=== PATIENT | female | born 1935 | race Caucasian/White ===

== ENCOUNTER 2017-10-30 14:36 | Emergency (ER) | payer OTHER ==
--- NOTE | 2017-10-30 15:28 | RAD REPORT ---
EXAM DESCRIPTION: Radha Single View10/30/2017 3:22 pm CLINICAL HISTORY: Cough COMPARISON: 2017 FINDINGS: The lungs appear clear of acute infiltrate. The heart is normal size IMPRESSION: No acute abnormalities displayed
--- NOTE | 2017-10-30 15:49 | EKG ---
Test Date: 2017-10-30 Test Time: 15:14:32 Medical Voucher Clerk: JAMES MEASUREMENT RESULTS: Intervals: Rate: 87 AL: 194 QRSD: 76 QT: 358 QTc: 430 [place]: P: -16 AL: 194 QRS: -17 T: 24 INTERPRETIVE STATEMENTS: Normal sinus rhythm Possible Anterior infarct, age undetermined Abnormal ECG Compared to ECG 09/12/2016 18:54:19 First degree AV block no longer present Myocardial infarct finding still present Electronically Signed On 10-30-17 15:48:37 CDT by Adi Josue
--- NOTE | 2017-10-30 15:50 | RAD REPORT ---
EXAM DESCRIPTION: CT - Head Brain Wo Cont - 10/30/2017 3:43 pm CLINICAL HISTORY: Headache COMPARISON: None. TECHNIQUE: Computed axial tomography of the head was obtained. IV contrast was not requested. All CT scans are performed using dose optimization technique as appropriate and may include automated exposure control or mA/KV adjustment according to patient size. FINDINGS: An intracranial bleed is not seen . The ventricles are normal in caliber. No extra-axial fluid collection is noted. Mild low-density areas within periventricular, deep and sub cortical white matter likely represent ischemic changes secondary to small vessel disease Fluid within the sinuses/ mastoids is not seen. IMPRESSION: No acute intracranial abnormality is seen. If patient's symptoms persist MRI of the bra in would be recommended.
[2017-10-30] MEDS ORDERED: NA CHLORIDE 0.9% 1,000 ML ONE (16:16)
[2017-10-30 16:56] LABS: Absolute Lymphocytes (CBC) 1.7 K/uL (0.7-4.9); Absolute Monocytes 1.4 K/uL (0.1-1.3); Absolute Neutrophil 6.4 K/uL (1.8-8.0); Basophils % 0.5 % (0-1.3); Hematocrit 41.9 % (36.0-45.0); Lymphocytes % 17.8 % (15.3-44.8); MCH 30.5 pg (27.0-35.0); MCV 91.1 fL (80-100); MPV 10.4 fL (7.6-11.3); Monocytes % 14.8 % (3.3-12.3)
[2017-10-30 17:04] LABS: Protime INR 1.18
[2017-10-30 17:12] LABS: Potassium 3.3 mEq/L (3.6-5.0)
[2017-10-30 17:18] LABS: Albumin 3.8 g/dL (3.2-5.5); Bilirubin Direct 0.2 mg/dL (0-0.2); Bilirubin Total 0.7 mg/dL (0.3-1.2); Protein, Total 6.8 g/dL (6.0-8.3)
[2017-10-30 17:22] LABS: CKMB Creatine Kinase MB 2.9 ng/ml (0.3-4.0)
[2017-10-30 17:28] LABS: Urine Blood TRACE (NEG); Urine Glucose NEGATIVE (NEG); Urine Protein 1+ (NEG); Urine Specific Gravity >1.030 (1.005-1.030); Urine pH 5.5 (5.0-7.0)
[2017-10-30 17:50] LABS: Thyroid Stimulating Hormone 1.21 uIU/mL (0.34-5.60)
--- NOTE | 2017-10-30 18:35 | EDPHYS ---
Physician Documentation [facility] Name: Josey Briscoe Age: 82 yrs Sex: Female : 1935 Arrival Date: 10/30/2017 Time: 14:41 Bed 30 Private MD: Mitesh Richard T ED Physician Db Llamas HPI: 10/30 15:17 This 82 yrs old Female presents to ER via Ambulatory with complaints of sailaja Fatigue. 15:17 weakness, not acting self. Onset: The symptoms/episode began/occurred 2 day(s) ago. sialaja Severity of symptoms: At their worst the symptoms were mild in the emergency department the symptoms are unchanged. The patient has not experienced similar symptoms in the past. Historical: - Allergies: 14:55 No Known Allergies; lk1 - PMHx: 14:55 Hyperlipidemia; Gout; CVA; lk1 - PSHx: 14:55 Hysterectomy; Tonsillectomy; right femur repaired; lk1 - Immunization history:: Adult Immunizations up to date. - Social history:: Smoking status: Patient/guardian denies using tobacco. - Family history:: pertinent for. ROS: 15:17 Constitutional: Negative for fever, chills, and weight loss, Eyes: Negative for injury, sailaja pain, redness, and discharge, ENT: Negative for injury, pain, and discharge, Neck: Negative for injury, pain, and swelling, Cardiovascular: Negative for chest pain, palpitations, and edema, Respiratory: Negative for shortness of breath, cough, wheezing, and pleuritic chest pain, Abdomen/GI: Negative for abdominal pain, nausea, vomiting, diarrhea, and constipation, Back: Negative for injury and pain, : Negative for injury, bleeding, discharge, and swelling, MS/Extremity: Negative for injury and deformity, Skin: Negative for injury, rash, and discoloration, Psych: Negative for depression, anxiety, suicide ideation, homicidal ideation, and hallucinations, Allergy/Immunology: Negative for hives, rash, and allergies, Endocrine: Negative for neck swelling, polydipsia, polyuria, polyphagia, and marked weight changes, Hematologic/Lymphatic: Negative for swollen nodes, abnormal bleeding, and unusual bruising. 15:17 Neuro: Positive for weakness. Exam: 15:17 Constitutional: This is a well developed, well nourished patient who is awake, alert, sailaaj and in no acute distress. Head/Face: Normocephalic, atraumatic. Eyes: Pupils equal round and reactive to light, extra-ocular motions intact. Lids and lashes normal. Conjunctiva and sclera are non-icteric and not injected. Cornea within normal limits. Periorbital areas with no swelling, redness, or edema. ENT: Nares patent. No nasal discharge, no septal abnormalities noted. Tympanic membranes are normal and external auditory canals are clear. Oropharynx with no redness, swelling, or masses, exudates, or evidence of obstruction, uvula midline. Mucous membranes moist. Neck: Trachea midline, no thyromegaly or masses palpated, and no cervical lymphadenopathy. Supple, full range of motion without nuchal rigidity, or vertebral point tenderness. No Meningismus. Chest/axilla: Normal chest wall appearance and motion. Nontender with no deformity. No lesions are appreciated. Cardiovascular: Regular rate and rhythm with a normal S1 and S2. No gallops, murmurs, or rubs. Normal PMI, no JVD. No pulse deficits. Respiratory: Lungs have equal breath sounds bilaterally, clear to auscultation and percussion. No rales, rhonchi or wheezes noted. No increased work of breathing, no retractions or nasal flaring. Abdomen/GI: Soft, non-tender, with normal bowel sounds. No distension or tympany. No guarding or rebound. No evidence of tenderness throughout. Back: No spinal tenderness. No costovertebral tenderness. Full range of motion. Female : Normal external genitalia. Skin: Warm, dry with normal turgor. Normal color with no rashes, no lesions, and no evidence of cellulitis. MS/ Extremity: Pulses equal, no cyanosis. Neurovascular intact. Full, normal range of motion. Neuro: Awake and alert, GCS 15, oriented to person, place, time, and situation. Cranial nerves II-XII grossly intact. Motor strength 5/5 in all extremities. Sensory grossly intact. Cerebellar exam normal. Normal gait. Psych: Awake, alert, with orientation to person, place and time. Behavior, mood, and affect are within normal limits. Vital Signs: 14:57 BP 114 / 69; Pulse 81; Resp 15; Temp 97.7(O); Pulse Ox 93% on R/A; Weight 63.5 kg (R); lk1 Height 5 ft. 6 in. (167.64 cm) (R); Pain 0/10; 16:37 BP 137 / 76; Pulse 76; Resp 18; Pulse Ox 97% on R/A; kb1 17:39 BP 133 / 74; Pulse 64; Resp 18; Pulse Ox 96% ; kb1 18:47 BP 129 / 82; Pulse 74; Resp 18; Pulse Ox 96% ; kb1 19:31 BP 141 / 78; Pulse 76; Resp 18; Pulse Ox 97% ; kb1 14:57 Body Mass Index 22.60 (63.50 kg, 167.64 cm) lk1 MDM: 15:07 Patient medically screened. [facility] 15:19 Data reviewed: vital signs, nurses notes, lab test result(s), EKG, radiologic studies, [facility] CT scan, plain films. 10/30 15:08 Order name: Basic Metabolic Panel; Complete Time: 18:27 [facility] 10/30 15:08 Order name: BNP; Complete Time: 18:27 [facility] 10/30 15:08 Order name: CBC with Diff; Complete Time: 18:27 [facility] 10/30 15:08 Order name: Ckmb; Complete Time: 18:27 [facility] 10/30 15:08 Order name: CPK; Complete Time: 18:27 [facility] 10/30 15:08 Order name: LFT's; Complete Time: 18:27 [facility] 10/30 15:08 Order name: Magnesium; Complete Time: 18:27 [facility] 10/30 15:08 Order name: PT-INR; Complete Time: 18:27 [facility] 10/30 15:08 Order name: Ptt, Activated; Complete Time: 18:27 [facility] 10/30 15:08 Order name: Troponin (emerg Dept Use Only); Complete Time: 18:27 [facility] 10/30 15:08 Order name: LFT's [facility] 10/30 15:08 Order name: Urine Culture [facility] 10/30 15:08 Order name: XRAY Chest (1 view); Complete Time: 16:25 [facility] 10/30 15:08 Order name: EKG; Complete Time: 15:09 [facility] 10/30 15:08 Order name: Cardiac monitoring; Complete Time: 15:55 [facility] 10/30 15:08 Order name: EKG - Nurse/Tech; Complete Time: 15:55 [facility] 10/30 15:08 Order name: IV Saline Lock; Complete Time: 16:47 [facility] 10/30 15:17 Order name: TSH [facility] 10/30 15:17 Order name: Lipase; Complete Time: 18:27 [facility] 10/30 15:17 Order name: Thyroid Stimulating Hormone; Complete Time: 18:27 [facility] 10/30 15:19 Order name: Blood Culture [facility] 10/30 15:21 Order name: CT Head Brain wo Cont; Complete Time: 16:25 [facility] 10/30 17:20 Order name: Urine Dipstick--Ancillary (enter results); Complete Time: 18:27 10/30 15:08 Order name: Labs collected and sent; Complete Time: 15:55 [facility] 10/30 15:08 Order name: O2 Per Protocol; Complete Time: 15:55 [facility] 10/30 15:08 Order name: O2 Sat Monitoring; Complete Time: 15:55 [facility] 10/30 15:08 Order name: Urine Dipstick-Ancillary (obtain specimen); Complete Time: 17:19 sailaja Administered Medications: 16:37 Drug: NS 0.9% 1000 ml Route: IV; Rate: 75 ml/hr; Site: left hand; kb1 18:30 Follow up: Rate change bolus kb1 19:33 Follow up: IV Status: Completed infusion kb1 18:48 Drug: Potassium Chloride 20 mEq Route: PO; kb1 19:32 Follow up: Response: No adverse reaction kb1 18:49 Drug: Rocephin - (cefTRIAXone) 1 grams Route: IVPB; Infused Over: 5 mins; Site: right kb1 antecubital; 19:32 Follow up: Response: No adverse reaction; IV Status: Completed infusion kb1 18:49 Drug: Cipro 250 mg Route: PO; kb1 19:31 Follow up: Response: No adverse reaction kb1 19:32 Not Given (Given from bag already being administered): NS 0.9% 500 ml IV at bolus once kb1 Disposition: 10/30/17 18:34 Discharged to Home. Impression: Weakness, Malaise and fatigue, Hypokalemia, Cystitis. - Condition is Stable. - Discharge Instructions: Potassium Content of Foods, Dysuria, Weakness, Fatigue, Weakness, Ullk-rm-Utca, Aspirin and Your Heart, Hypokalemia. - Prescriptions for Cipro 250 mg Oral Tablet - take 1 tablet by ORAL route every 12 hours; 14 tablet. - Medication Reconciliation Form, Thank You Letter, Antibiotic Education, Prescription Opioid Use form. - Follow up: Mitesh Richard MD; When: 2 - 3 days; Reason: Recheck today's complaints, Continuance of care, Re-evaluation by your physician. - Problem is new. - Symptoms have improved. Signatures: Dispatcher [employer] EDDb Campbell MD MD cha Kluge, Leah, RN RN lk1 Veronica Castillo RN RN kb1
--- NOTE | 2017-10-30 18:35 | ER ---
Nurse's Notes [facility] Name: Josey Briscoe Age: 82 yrs Sex: Female : 1935 Arrival Date: 10/30/2017 Time: 14:41 Bed 30 Private MD: Mitesh Richard T Diagnosis: Weakness;Malaise and fatigue;Hypokalemia;Cystitis Presentation: 10/30 14:53 Presenting complaint: Significant other states: "I have noticed from yesterday to today lk1 a change in her ability to move around. She slept until 10am and she is taking longer than usual to do things. She had a stroke 10 years ago, but she doesn't seem to be having stroke problems.". Transition of care: patient was not received from another setting of care. Onset of symptoms was October 30, 2017. Care prior to arrival: None. 14:53 Method Of Arrival: Ambulatory lk1 14:53 Acuity: EMILIE 3 lk1 Triage Assessment: 14:56 General: Appears in no apparent distress. Behavior is calm, cooperative, appropriate lk1 for age. Pain: Denies pain. Neuro: Level of Consciousness is awake, alert, obeys commands, Oriented to person, place, time, situation, Moves all extremities. Full function Gait is steady, Speech is normal, Facial symmetry appears normal. Historical: - Allergies: 14:55 No Known Allergies; lk1 - PMHx: 14:55 Hyperlipidemia; Gout; CVA; lk1 - PSHx: 14:55 Hysterectomy; Tonsillectomy; right femur repaired; lk1 - Immunization history:: Adult Immunizations up to date. - Social history:: Smoking status: Patient/guardian denies using tobacco. - Family history:: pertinent for. Screenin:10 Abuse screen: Denies threats or abuse. Nutritional screening: No deficits noted. kb1 Tuberculosis screening: No symptoms or risk factors identified. Fall Risk None identified. Assessment: 15:10 General: Appears in no apparent distress. Behavior is calm, cooperative. Pain: Denies kb1 pain. Neuro: Level of Consciousness is awake, alert, obeys commands, Oriented to person, place, time, situation, Tube Carrier are equal bilaterally Moves all extremities. Speech is normal, Facial symmetry appears normal, Intact. Cardiovascular: Patient's skin is warm and dry. Rhythm is sinus rhythm. Respiratory: Respiratory effort is even, unlabored, Respiratory pattern is regular, symmetrical. GI: No signs and/or symptoms were reported involving the gastrointestinal system. : No signs and/or symptoms were reported regarding the genitourinary system. 16:35 Reassessment: Patient appears in no apparent distress at this time. Patient and/or kb1 family updated on plan of care and expected duration. Pain level reassessed. Patient is alert, oriented x 3, equal unlabored respirations, skin warm/dry/pink. 17:39 Reassessment: Patient appears in no apparent distress at this time. Patient and/or kb1 family updated on plan of care and expected duration. Pain level reassessed. Patient is alert, oriented x 3, equal unlabored respirations, skin warm/dry/pink. resting with eyes closed upon nurses entrance into room. 18:46 Reassessment: Patient appears in no apparent distress at this time. Patient and/or kb1 family updated on plan of care and expected duration. Pain level reassessed. Patient is alert, oriented x 3, equal unlabored respirations, skin warm/dry/pink. 19:31 Reassessment: Patient appears in no apparent distress at this time. Patient and/or kb1 family updated on plan of care and expected duration. Pain level reassessed. Patient is alert, oriented x 3, equal unlabored respirations, skin warm/dry/pink. Vital Signs: 14:57 BP 114 / 69; Pulse 81; Resp 15; Temp 97.7(O); Pulse Ox 93% on R/A; Weight 63.5 kg (R); lk1 Height 5 ft. 6 in. (167.64 cm) (R); Pain 0/10; 16:37 BP 137 / 76; Pulse 76; Resp 18; Pulse Ox 97% on R/A; kb1 17:39 BP 133 / 74; Pulse 64; Resp 18; Pulse Ox 96% ; kb1 18:47 BP 129 / 82; Pulse 74; Resp 18; Pulse Ox 96% ; kb1 19:31 BP 141 / 78; Pulse 76; Resp 18; Pulse Ox 97% ; kb1 14:57 Body Mass Index 22.60 (63.50 kg, 167.64 cm) lk1 ED Course: 14:41 Patient arrived in ED. mr 14:41 Mitesh Richard MD is Private Physician. mr 14:54 Triage completed. lk1 14:58 Arm band placed on left wrist. lk1 15:00 Veronica Castillo, DONNA is Primary Nurse. kb1 15:07 Db Llamas MD is Attending Physician. sailaja 15:10 Patient has correct armband on for positive identification. Placed in gown. Bed in low kb1 position. Call light in reach. Side rails up X 1. 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 Pulse ox on. NIBP on. Warm blanket given. 15:10 No provider procedures requiring assistance completed. kb1 15:21 X-ray completed. Portable x-ray completed in exam room. Patient tolerated procedure ml well. 15:22 XRAY Chest (1 view) In Process Unspecified. EDMS 15:[address] nj 15:42 CT completed. Patient tolerated procedure well. Patient moved back from CT. nj 15:43 CT Head Brain wo Cont In Process Unspecified. EDMS 16:07 Missed attempt(s): 22 gauge in right forearm. Bleeding controlled, band aid applied, dh3 catheter tip intact. Missed attempt(s): 24 gauge in right hand. Bleeding controlled, band aid applied, catheter tip intact. 16:36 Inserted saline lock: 22 gauge in left hand, using aseptic technique. kb1 17:19 Urine collected: clean catch specimen, yvette colored. dh3 18:33 Mitesh Richard MD is Referral Physician. sailaja 19:34 IV discontinued, intact, bleeding controlled, No redness/swelling at site. Pressure kb1 dressing applied. Administered Medications: 16:37 Drug: NS 0.9% 1000 ml Route: IV; Rate: 75 ml/hr; Site: left hand; kb1 18:30 Follow up: Rate change bolus kb1 19:33 Follow up: IV Status: Completed infusion kb1 18:48 Drug: Potassium Chloride 20 mEq Route: PO; kb1 19:32 Follow up: Response: No adverse reaction kb1 18:49 Drug: Rocephin - (cefTRIAXone) 1 grams Route: IVPB; Infused Over: 5 mins; Site: right kb1 antecubital; 19:32 Follow up: Response: No adverse reaction; IV Status: Completed infusion kb1 18:49 Drug: Cipro 250 mg Route: PO; kb1 19:31 Follow up: Response: No adverse reaction kb1 19:32 Not Given (Given from bag already being administered): NS 0.9% 500 ml IV at bolus once kb1 Outcome: 18:34 Discharge ordered by . sailaja 19:34 Discharged to home ambulatory, with family. kb1 19:34 Condition: good 19:34 Discharge instructions given to patient, family, Instructed on discharge instructions, follow up and referral plans. medication usage, Demonstrated understanding of instructions, follow-up care, medications, Prescriptions given X 1. 19:35 Patient left the ED. kb1 Signatures: Dispatcher [employer] EDMS Db Llamas MD MD cha Rivera, Maria mr Neal, Tonja Mojica, RN RN lk1 Inder Alston Deanna 3 Veronica Castillo RN RN kb1
[2017-10-30] MEDS ORDERED: CEFTRIAXONE/SWI 1gm 1 GM/10 ML SYR ONE (18:55)
[2017-10-30] MEDS ORDERED: POTASSIUM CL SA 10 MEQ TAB PO ONE (18:55)
[2017-10-30] MEDS ORDERED: CIPROFLOXACIN HCL 500 MG TAB ONE (18:58)
[2017-10-30 19:40] VITALS: TEMP 97.7
[2017-10-30 19:44] VITALS: BP 141/78; O2SAT 97
== END 2017-10-30 19:35 | disposition home or self-care (01) ==
LOC: ER 14:36
DX: E87.6 Hypokalemia (principal); N30.90 Cystitis, unspecified without hematuria; R53.81 Other malaise; R53.83 Other fatigue; Z86.73 Personal history of transient ischemic attack (TIA), and cerebral infarction without residual deficits
CPT/HCPCS: 36415; 70450; 71045; 80048; 80076; 81003; 82550; 82553; 83690; 83735; 83880; 84443; 84484; 85025; 85610; 85730; 87040 ×2; 87077; 87086; 87088; 87186; 93005; 96361; 96365; 99285; J0696; J7030

== ENCOUNTER 2020-11-15 09:44 | Emergency (ER) | payer OTHER ==
--- OUTSIDE RECORDS SUMMARY | 2020-11-15 09:47 | XMS REPORT | Continuity of Care Document ---
:1935 Author Organization [facility] t Address [address] [place] [address] Care Team Providers Name Role Phone Chavez Santo MD Primary Care Physician [phone] Chavez Santo MD Attending Clinician Only, Test Attending Clinician Unavailable Doctor Unassigned, Name Attending Clinician Unavailable CHAVEZ SANTO Attending Clinician Unavailable Payers Payer Name Policy Type Policy Effective Date Expiration Date Sour ce Number AETNA - MEDICARE [id number] 2017 [facility] L ukes MGD CAREAETNA 00:00:00 - Medical MEDICARE HMO Center [id number] [id number] [id number], [place] [address] Contracted Problems Condition Condition Condition Status Onset Resolution Last Treating Co mments Source Name Details Category Date Date Treatment Clinician Date 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 Social History Social Habit Start Date Stop Date Quantity Comments Source Sex Assigned At [facility] Tobacco use and 2020-08-21 2020-08-[address] [facility] [address] Bethanie kes - exposure 00:00:00 00:00:00 Medical Center Alcohol intake 2020-08-21 2020-08-[address] [facility] Mckay es - 00:00:00 00:00:00 non-drinker of Medical Ce nter alcohol (finding) Smoking Status Start Date Stop Date Source Never smoker [facility] kes - edical Center Medications Ordered Filled Start Stop Current Ordering Indication Dosage Frequency Signature Comments Components Source Medication Medication Date Date Medication? Clinician (SIG) Name Name aspirin 325 Yes Memory loss 325mg QD Take [address] [facility] [address] MG EC 1-21 mg by [facility] - tablet 13:59: mouth Medical 56 daily. [place] cholecalcif Yes Vitamin D 1000U QD Take 1,[address] [facility] rosanne 1-21 deficiency Units by [facility] - (VITAMIN 13:59: mouth Medical D3) 1,000 56 daily. [place] unit tablet b complex Yes Vitamin B12 1{tbl} QD Take [address] [facility] vitamins (B 1-21 deficiency tablet by [employer] - COMPLEX-VIT 13:59: mouth Medic al VELARDE B12) 56 daily. [place] tablet allopurinol Yes 100mg QD Take [address] (ZYLOPRIM) 1-21 mg by [facility] - 100 MG 13:59: mouth Medical tablet 56 daily. [place] Namzaric Yes Memory loss 1{capsu QD Take [address] 28-10 mg 1-21 le} capsule by [facility] - CSpX 00:00: mouth Medical 00 daily. [place] simvastatin Yes Mixed 20mg QD Take [address] [facility] (ZOCOR) 20 1-21 hyperlipide tablet (20 [facility] - MG tablet 00:00: geno mg total) Med ical 00 by mouth [place] daily. NAMZARIC 2020- No Memory loss Take [address] [facility] 28-10 mg 5-28 -21 capsule by Luke s - CSpX 00:00: 00:00 mouth once Medica l 00 :00 daily [place] simvastatin 2018-07- No Mixed 20mg QD Take [address] (ZOCOR) 20 2-17 01-21 hyperlipide tablet (20 [facility] - MG tablet 00:00: 00:00 geno mg total) Me dical 00 :00 by mouth Center daily. NAMZARIC 2019- No Memory loss 1{capsu QD Take [address] [facility] 28-10 mg 6-11 05 le} capsule by Chris Yanez CSpX 00:00: 00:00 mouth Medical 00 :00 daily. Center Immunizations Ordered Immunization Filled Immunization Date Status Commen ts Source Name Name Influenza TIV (IM) 2019-05-27 [address] [facility] St kes - 00:00:00 Medical [place] Pneumococcal Conjugate 2018-08-[address] [facility] 13-Valent 00:00:00 Medic al Center SHINGLES VARICELLA 2018-07-29 Completed [facility] - (ZOSTAVAX) ZOSTER 00:00:00 [facility] Td 2016-12-27 Com[address] [facility] - 00:00:00 [facility] Pneumococcal 2016-06-28 Com[facility] Pol[facility]accharide 00:00:00 Medical Ce nter (Pneumovax) Vital Signs Vital Name Observation Time Observation Value Comments Source Systolic blood 2020-08-18 13:56:00 128 mm[Hg] [facility] Diastolic blood 2020-08-18 13:56:00 67 mm[Hg] [facility] Heart rate 2020-08-18 13:56:00 77 /min [facility] Body temperature 2020-08-18 13:56:00 36.5 Radha [facility] Body weight 2020-08-18 13:56:[address] [facility] BMI 2020-08-18 13:56:00 24.18 kg/m2 [facility] Oxygen saturation in 2020-08-18 13:56:00 97 /min [facility] Arterial blood by Medical Ce nter Pulse oximetry Respiratory rate 2020-01-19 11:12:00 14 /min [facility] Procedures Procedure Date / Time Performed Performing Clinician Sour e TSH/FREE T4 IF INDICATED 2020-01-19 12:32:00 Arcadio Bishop [facility] CBC W/PLT COUNT & AUTO 2020-01-19 12:31:00 Arcadio Bishop [facility] COMPREHENSIVE METABOLIC 2020-01-19 12:31:00 Arcadio Bishop [facility] PANEL [facility] LIPID PANEL 2020-01-19 12:31:00 Arcadio Bishop Davi [facility] St kes [facility] Plan of Care Planned Activity Planned Date Details Comments Source Future Scheduled 2026-12-27 DTAP/TDAP/TD VACCINES [facility] - Test 00:00:00 (2 - Td) [code = [facility] ter DTAP/TDAP/TD VACCINES (2 - Td)] Future Scheduled 2020-07-[address] [facility] - Test 00:00:00 (12+) [code = [facility] DEPRESSION SCREENING (12+)] Future Scheduled 2020-03-[address] [facility] - Test 00:00:00 (#1) [code = [facility] INFLUENZA VACCINE (#1)] Future Scheduled 2018-09-23 SHINGLES VACCINES ([address] [facility] - Test 00:00:00 of 3) [code = [facility] SHINGLES VACCINES (2 of 3)] Future Scheduled 2018-07-[address] [facility] - Test 00:00:00 WELLNESS (YEAR 2 or [facility] FIRST YEAR if no IPPE) [code = MEDICARE ANNUAL WELLNESS (YEAR 2 or FIRST YEAR if no IPPE)] Encounters Start End Encounter Admission Attending Care Care Encounter Source Date/Time Date/Time Type Type Clinicians Facility Department ID 2020-07-19 2020-07-19 Laboratory Only, Adc [facility] [id number] 15:05:07 15:20:07 Only Test [place] [id number] [place] [id number] [place] [id number] 2020-07-19 2020-07-19 Orders Doctor LUZ [id number] 00:00:00 00:00:00 Only Unassigned, PAIG[place] [id number] [place] [facility] [id number] Results Test Description Test Time Test Comments Results Result Comments Source TSH/Free T4 If Indicated 2020-01-19 17:46:00 Test Item Value Reference Range Interpretation Comme nts TSH (test code = 17299-4) 2.040 See_Comment [ Automated message] The system which ge nerated this result transmit pati reference range: 0.350 - 4.940 uIU/mL. The reference r nikky was not used to interpr et this result as tracy l/abnormal. FLO (test code = FLO) Pig Caster ID - BS Lab Interpretation (test Normal code = 62204-1) [facility] [id number] 17:46:00 Test Item Value Reference Range Interpretation Comments THYROID STIMULATING HORMONE 2.040 uIU/mL 0.350-4.940 (BEAKER) (test code = 772) Pig Caster ID - BSComprehensive metabolic [id number] 17:28:00 Test Item Value Reference Range Interpretation Comments Protein, Total (test 7.1 See_Comment [Autom ated code = 2885-2) message] The system which generated this result transmit pati reference range : 6.0 - 8.3 gm/dL . The reference range was not u sed to interpret th is result as normal/abnormal . Albumin (test code = 4.1 g/dL 3.5-5 24350-7) Alkaline Phosphatase 85 U/L 40-150 (test code = 6768-6) Total Bilirubin (test 0.4 mg/dL 0.2-1.2 code = 1975-2) Sodium (test code = 144 meq/L 639-267 9325-2) Potassium (test code 3.7 meq/L 3.5-5.1 = 2823-3) Chloride (test code = 111 meq/L 98-107 H 2075-0) CO2 (test code = 20 meq/L 22-29 L 8-9) BUN (test code = 14 mg/dL 7-21 3094-0) Creatinine (test code 0.81 mg/dL 0.57-1.25 = 2160-0) Glucose (test code = 65 mg/dL 70-105 L 2345-7) Calcium (test code = 9.0 mg/dL 8.4-10.2 64757-0) AST (test code = 17 U/L 5-34 1920-8) ALT (test code = 15 U/L 6-55 1742-6) EGFR (test code = 67 mL/min/1.73 sq m [place] [facility] [place] [address]-0) NOT ACCURATE CREATININE CLEARANCE IN PREDICTING GLOMERULAR FILTRATION RATE . ESTIMATED GFR I S NOT APPLICABLE FOR DIALYSIS PATIEN FLO (test code = FLO) Pig Caster ID - BS Lab Interpretation Abnormal (test code = 05698-0) [facility] [id number] 17:28:00 Test Item Value Reference Range Interpretation Comments Triglycerides (test 162 mg/dL code = 2571-8) Cholesterol (test code 167 mg/dL = 2093-3) HDL (test code = 44 mg/dL 2085-9) LDL Calculated (test 91 mg/dL code = 72745-1) FLO (test code = FLO) Triglyceride Reference Range: Low Risk <150 Borderline 150-199 High Risk 200-499 Very High Risk >=500 Cholesterol Reference Range: Low Risk <200 Borderline 200-239 High Risk >240 HDL Cholesterol Reference Range: Low Risk >=60 High Risk <40 LDL Cholesterol Reference Range: Optimal <100 Near Optimal 100-129 Borderline 130-159 High 160-189 Very High >=190 Pig Caster ID - BS [facility] [id number] 17:28:00 Test Item Value Reference Range Interpretation Comments TRIGLYCERIDES (BEAKER) (test code = 162 mg/dL 540) CHOLESTEROL (BEAKER) (test code = 167 mg/dL 631) HDL CHOLESTEROL (BEAKER) (test code 44 mg/dL = 976) LDL CHOLESTEROL CALCULATED (BEAKER) 91 mg/dL (test code = 633) Triglyceride Reference Range: Low Risk <150 Borderline 150-199 High Risk 200-499 Very High Risk >=500Cholesterol Reference Range: Low Risk <200 Borderline 200-239 High Risk >240HDL Cholesterol Reference Range: Low Risk >=60 High Risk <40LDL Cholesterol Reference Range: Optimal <100 Near Optimal 100-129 Borderline 130-159 High 160-189 Very High >=190 Pig Caster ID - BSCOMPREHENSIVE METABOLIC [id number] 17:28:00 Test Item Value Reference Range Interpretation Comments TOTAL PROTEIN 7.1 gm/dL 6.0-8.3 (BEAKER) (test code = 770) ALBUMIN (BEAKER) 4.1 g/dL 3.5-5.0 (test code = 1145) ALKALINE PHOSPHATASE 85 U/L 40-150 (BEAKER) (test code = 346) BILIRUBIN TOTAL 0.4 mg/dL 0.2-1.2 (BEAKER) (test code = 377) SODIUM (BEAKER) (test 144 meq/L 136-145 code = 381) POTASSIUM (BEAKER) 3.7 meq/L 3.5-5.1 (test code = 379) CHLORIDE (BEAKER) 111 meq/L 98-107 H (test code = 382) CO2 (BEAKER) (test 20 meq/L 22-29 L code = 355) BLOOD UREA NITROGEN 14 mg/dL 7-21 (BEAKER) (test code = 354) CREATININE (BEAKER) 0.81 mg/dL 0.57-1.25 (test code = 358) GLUCOSE RANDOM 65 mg/dL 70-105 L (BEAKER) (test code = 652) CALCIUM (BEAKER) 9.0 mg/dL 8.4-10.2 (test code = 697) AST (SGOT) (BEAKER) 17 U/L 5-34 (test code = 353) ALT (SGPT) (BEAKER) 15 U/L 6-55 (test code = 347) EGFR (BEAKER) (test 67 mL/min/1.73 ESTIM[facility] PATI GFR IS code = 1092) sq m NOT ACCURATE CREATININE CLEARANCE IN PREDICTING GLOMERULAR FILTRATION RATE . ESTIMATED GFR I S NOT APPLICABLE FOR DIALYSIS PATIEN TS. Pig Caster ID - BSCBC with platelet count + automated [id number] 16:47:00 Test Item Value Reference Range Interpretation Comments WBC (test code = 6690-2) 7.6 See_Comment [A utomated message] The system [facility] generated this result transmitted ref erence range: 3.5 - 10 .5 K/L. The refe rence range was not u sed to interpret this result as normal/abnor mal. RBC (test code = 789-8) 5.09 See_Comment [Au tomated message] The system [facility] generated this result transmitted ref erence range: 3.93 - 5 .22 M/L. The refe rence range was not u sed to interpret this result as normal/abnor mal. MCHC (test code = 786-4) 30.8 See_Comment L [A utomated message] The system [facility] generated this result transmitted ref erence range: 32.2 - 3 5.5 GM/DL. The refe rence range was not u sed to interpret this result as normal/abnor mal. Hematocrit (test code = 46.8 % 34.1-44.9 H 4544-3) MCV (test code = 787-2) 91.9 fL 79.4-94.8 MCH (test code = 785-6) 28.3 pg 25.6-32.2 RDW (test code = 788-0) 14.3 % 11.7-14.4 Platelets (test code = 204 See_Comment [Aut omated message] 777-3) The system [facility] generated this result transmitted ref erence range: 150 - 45 0 K/CU MM. The referen ce range was not u sed to interpret this result as normal/abnor mal. MPV (test code = 12.6 fL 9.4-12.3 H 43012-8) nRBC (test code = 413) 0 See_Comment [Aut omated message] The system [facility] generated this result transmitted ref erence range: 0 - 0 /1 00 WBC. The refere nce range was not u sed to interpret this result as normal/abnor mal. % Neutros (test code = 57 % 429) % Lymphs (test code = 32 % 430) % Monos (test code = 9 % 431) % Eos (test code = 432) 1 % % Baso (test code = 437) 1 % # Neutros (test code = 4.32 See_Comment [Aut omated message] 670) The system [facility] generated this result transmitted ref erence range: 1.56 - 6 .13 K/L. The refe rence range was not u sed to interpret this result as normal/abnor mal. # Lymphs (test code = 2.42 See_Comment [Auto mated message] 414) The system [facility] generated this result transmitted ref erence range: 1.18 - 3 .74 K/L. The refe rence range was not u sed to interpret this result as normal/abnor mal. # Monos (test code = 0.70 See_Comment H [Autom ated message] 415) The system [facility] generated this result transmitted ref erence range: 0.24 - 0 .36 K/L. The refe rence range was not u sed to interpret this result as normal/abnor mal. # Eos (test code = 416) 0.04 See_Comment [Au tomated message] The system [facility] generated this result transmitted ref erence range: 0.04 - 0 .36 K/L. The refe rence range was not u sed to interpret this result as normal/abnor mal. # Baso (test code = 417) 0.05 See_Comment [A utomated message] The system [facility] generated this result transmitted ref erence range: 0.01 - 0 .08 K/L. The refe rence range was not u sed to interpret this result as normal/abnor mal. Immature 0 % 0-1 Granulocytes-Relative (test code = 2801) Lab Interpretation (test Abnormal code = 42340-8) [facility] W/PLT COUNT & AUTO [id number] 16:47:00 Test Item Value Reference Range Interpretation Comments WHITE BLOOD CELL COUNT (BEAKER) 7.6 K/ L 3.5-10.5 (test code = 775) RED BLOOD CELL COUNT (BEAKER) 5.09 M/ L 3.93-5.22 (test code = 761) HEMOGLOBIN (BEAKER) (test code = 14.4 GM/DL 11.2-15.7 410) HEMATOCRIT (BEAKER) (test code = 46.8 % 34.1-44.9 H 411) MEAN CORPUSCULAR VOLUME (BEAKER) 91.9 fL 79.4-94.8 (test code = 753) MEAN CORPUSCULAR HEMOGLOBIN 28.3 pg 25.6-32.2 (BEAKER) (test code = 751) MEAN CORPUSCULAR HEMOGLOBIN CONC 30.8 GM/DL 32.2-35.5 L (BEAKER) (test code = 752) RED CELL DISTRIBUTION WIDTH 14.3 % 11.7-14.4 (BEAKER) (test code = 412) PLATELET COUNT (BEAKER) (test 204 K/CU MM 150-450 code = 756) MEAN PLATELET VOLUME (BEAKER) 12.6 fL 9.4-12.3 H (test code = 754) NUCLEATED RED BLOOD CELLS 0 /100 WBC 0-0 (BEAKER) (test code = 413) NEUTROPHILS RELATIVE PERCENT 57 % (BEAKER) (test code = 429) LYMPHOCYTES RELATIVE PERCENT 32 % (BEAKER) (test code = 430) MONOCYTES RELATIVE PERCENT 9 % (BEAKER) (test code = 431) EOSINOPHILS RELATIVE PERCENT 1 % (BEAKER) (test code = 432) BASOPHILS RELATIVE PERCENT 1 % (BEAKER) (test code = 437) NEUTROPHILS ABSOLUTE COUNT 4.32 K/ L 1.56-6.13 (BEAKER) (test code = 670) LYMPHOCYTES ABSOLUTE COUNT 2.42 K/ L 1.18-3.74 (BEAKER) (test code = 414) MONOCYTES ABSOLUTE COUNT (BEAKER) 0.70 K/ L 0.24-0.36 H (test code = 415) EOSINOPHILS ABSOLUTE COUNT 0.04 K/ L 0.04-0.36 (BEAKER) (test code = 416) BASOPHILS ABSOLUTE COUNT (BEAKER) 0.05 K/ L 0.01-0.08 (test code = 417) IMMATURE GRANULOCYTES-RELATIVE 0 % 0-1 PERCENT (BEAKER) (test code = 2801) URIC [id number] 14:41:00 Test Item Value Reference Range Interpretation Comments URIC ACID (BEAKER) (test code = 5.5 mg/dL 2.6-7.2 773) COMPREHENSIVE METABOLIC [id number] 14:41:00 Test Item Value Reference Range Interpretation Comments TOTAL PROTEIN 7.6 gm/dL 6.0-8.3 (BEAKER) (test code = 770) ALBUMIN (BEAKER) 4.3 g/dL 3.5-5.0 (test code = 1145) ALKALINE PHOSPHATASE 105 U/L 40-150 (BEAKER) (test code = 346) BILIRUBIN TOTAL 0.4 mg/dL 0.2-1.2 (BEAKER) (test code = 377) SODIUM (BEAKER) (test 140 meq/L 136-145 code = 381) POTASSIUM (BEAKER) 3.9 meq/L 3.5-5.1 (test code = 379) CHLORIDE (BEAKER) 107 meq/L 98-107 (test code = 382) CO2 (BEAKER) (test 24 meq/L 22-29 code = 355) BLOOD UREA NITROGEN 18 mg/dL 7-21 (BEAKER) (test code = 354) CREATININE (BEAKER) 0.78 mg/dL 0.57-1.25 (test code = 358) GLUCOSE RANDOM 81 mg/dL 70-105 (BEAKER) (test code = 652) CALCIUM (BEAKER) 9.5 mg/dL 8.4-10.2 (test code = 697) AST (SGOT) (BEAKER) 17 U/L 5-34 (test code = 353) ALT (SGPT) (BEAKER) 16 U/L 6-55 (test code = 347) EGFR (BEAKER) (test 70 mL/min/1.73 [facility] GFR IS code = 1092) sq m NOT ACCURATE CREATININE CLEARANCE IN PREDICTING GLOMERULAR FILTRATION RATE . ESTIMATED GFR I S NOT APPLICABLE FOR DIALYSIS PATIEN TS. [id number] 12:34:00 Test Item Value Reference Range Interpretation Comments THYROID STIMULATING HORMONE 1.38 uIU/mL 0.35-4.94 (BEAKER) (test code = 772) VITAMIN [id number] 12:34:00 Test Item Value Reference Range Interpretation Comments VITAMIN B12 (BEAKER) (test code = 1882 pg/mL 213-816 H 774) BASIC METABOLIC [id number] 12:04:00 Test Item Value Reference Range Interpretation Comments SODIUM (BEAKER) 144 meq/L 136-145 (test code = 381) POTASSIUM (BEAKER) 3.4 meq/L 3.5-5.1 L (test code = 379) CHLORIDE (BEAKER) 108 meq/L 98-107 H (test code = 382) CO2 (BEAKER) (test 26 meq/L 22-29 code = 355) BLOOD UREA NITROGEN 12 mg/dL 7-21 (BEAKER) (test code = 354) CREATININE (BEAKER) 0.73 mg/dL 0.57-1.25 (test code = 358) GLUCOSE RANDOM 100 mg/dL 70-105 (BEAKER) (test code = 652) CALCIUM (BEAKER) 9.3 mg/dL 8.4-10.2 (test code = 697) EGFR (BEAKER) (test 76 mL/min/1.73 [facility] GFR IS code = 1092) sq m NOT ACCURATE CREATININE CLEARANCE IN PREDICTING GLOMERULAR FILTRATION RATE . ESTIMATED GFR I S NOT APPLICABLE FOR DIALYSIS PATIEN TS. VITAMIN [id number] 14:07:00 Test Item Value Reference Range Interpretation Comments VITAMIN B12 (BEAKER) (test code = 1427 pg/mL 213-816 H 774) VITAMIN D, [id number] 14:07:00 Test Item Value Reference Range Interpretation Comments VITAMIN D 25-OH (BEAKER) (test 51.2 ng/mL 6.6-49.9 H code = 2764) Effective 05/08/2017: Reference Range ChangeNew: 6.6-49.9 ng/mL Previous: 13.0-47.8 ng/mLRecommended Vitamin D Target Range: 30.0-40.0 ng/mLCOMPREHENSIVE METABOLIC [id number] 13:40:00 Test Item Value Reference Range Interpretation Comments TOTAL PROTEIN 7.5 gm/dL 6.0-8.3 (BEAKER) (test code = 770) ALBUMIN (BEAKER) 4.1 g/dL 3.5-5.0 (test code = 1145) ALKALINE PHOSPHATASE 95 U/L 40-150 (BEAKER) (test code = 346) BILIRUBIN TOTAL 0.5 mg/dL 0.2-1.2 (BEAKER) (test code = 377) SODIUM (BEAKER) (test 140 meq/L 136-145 code = 381) POTASSIUM (BEAKER) 3.9 meq/L 3.5-5.1 (test code = 379) CHLORIDE (BEAKER) 106 meq/L 98-107 (test code = 382) CO2 (BEAKER) (test 22 meq/L 22-29 code = 355) BLOOD UREA NITROGEN 13 mg/dL 7-21 (BEAKER) (test code = 354) CREATININE (BEAKER) 0.80 mg/dL 0.57-1.25 (test code = 358) GLUCOSE RANDOM 88 mg/dL 70-105 (BEAKER) (test code = 652) CALCIUM (BEAKER) 9.4 mg/dL 8.4-10.2 (test code = 697) AST (SGOT) (BEAKER) 13 U/L 5-34 (test code = 353) ALT (SGPT) (BEAKER) 10 U/L 6-55 (test code = 347) EGFR (BEAKER) (test 69 mL/min/1.73 [facility] PAT[facility] GFR IS code = 1092) sq m NOT ACCURATE CREATININE CLEARANCE IN PREDICTING GLOMERULAR FILTRATION RATE . ESTIMATED GFR I S NOT APPLICABLE FOR DIALYSIS PATIEN TS. CBC W/PLT COUNT & AUTO [id number] 13:02:00 Test Item Value Reference Range Interpretation Comments WHITE BLOOD CELL COUNT (BEAKER) 10.3 K/ L 3.5-10.5 (test code = 775) RED BLOOD CELL COUNT (BEAKER) 4.67 M/ L 3.93-5.22 (test code = 761) HEMOGLOBIN (BEAKER) (test code = 14.2 GM/DL 11.2-15.7 410) HEMATOCRIT (BEAKER) (test code = 43.2 % 34.1-44.9 411) MEAN CORPUSCULAR VOLUME (BEAKER) 92.5 fL 79.4-94.8 (test code = 753) MEAN CORPUSCULAR HEMOGLOBIN 30.4 pg 25.6-32.2 (BEAKER) (test code = 751) MEAN CORPUSCULAR HEMOGLOBIN CONC 32.9 GM/DL 32.2-35.5 (BEAKER) (test code = 752) RED CELL DISTRIBUTION WIDTH 13.2 % 11.7-14.4 (BEAKER) (test code = 412) PLATELET COUNT (BEAKER) (test 244 K/CU MM 150-450 code = 756) MEAN PLATELET VOLUME (BEAKER) 11.3 fL 9.4-12.3 (test code = 754) NUCLEATED RED BLOOD CELLS 0 /100 WBC 0-0 (BEAKER) (test code = 413) NEUTROPHILS RELATIVE PERCENT 64 % (BEAKER) (test code = 429) LYMPHOCYTES RELATIVE PERCENT 27 % (BEAKER) (test code = 430) MONOCYTES RELATIVE PERCENT 7 % (BEAKER) (test code = 431) EOSINOPHILS RELATIVE PERCENT 1 % (BEAKER) (test code = 432) BASOPHILS RELATIVE PERCENT 1 % (BEAKER) (test code = 437) NEUTROPHILS ABSOLUTE COUNT 6.58 K/ L 1.56-6.13 H (BEAKER) (test code = 670) LYMPHOCYTES ABSOLUTE COUNT 2.77 K/ L 1.18-3.74 (BEAKER) (test code = 414) MONOCYTES ABSOLUTE COUNT (BEAKER) 0.73 K/ L 0.24-0.36 H (test code = 415) EOSINOPHILS ABSOLUTE COUNT 0.13 K/ L 0.04-0.36 (BEAKER) (test code = 416) BASOPHILS ABSOLUTE COUNT (BEAKER) 0.08 K/ L 0.01-0.08 (test code = 417) IMMATURE GRANULOCYTES-RELATIVE 0 % 0-1 PERCENT (BEAKER) (test code = 2801)
--- NOTE | 2020-11-15 12:24 | RAD REPORT ---
EXAM DESCRIPTION: US - Extremity Venous Uni Ltd - 11/15/2020 11:38 am CLINICAL HISTORY: PAIN COMPARISON: None. TECHNIQUE: Real-time sonographic evaluation of the left lower extremity deep venous system was perfo rmed. FINDINGS: Normal compressibility, flow augmentation, phasic flow and spontaneous flow are identified in the left lower extremity common femoral, superficial femoral, popliteal and posterior tibial vein s. No intraluminal filling defects seen. IMPRESSION: No DVT in the left lower extremity.
[2020-11-15 12:41] LABS: Absolute Lymphocytes (CBC) 1.9 K/uL (0.7-4.9); Basophils % 1.1 % (0-1.3); Hematocrit 43.9 % (36.0-45.0); Lymphocytes % 19.1 % (15.3-44.8); MPV 10.8 fL (7.6-11.3); RBC Red Blood Cell Count 4.94 M/uL (3.86-4.86)
--- NOTE | 2020-11-15 12:46 | RAD REPORT ---
EXAM DESCRIPTION: RAD - Ankle Left 3 View - 11/15/2020 12:05 pm CLINICAL HISTORY: left ankle pain COMPARISON: No comparisons FINDINGS: No fracture, dislocation or periosteal reaction. Bones are osteopenic. A small 4 millimete r area of decreased density with peripheral sclerotic rim is seen in the tibial plafond. This is prob ably an area of subcortical degenerative cystic change. No focal abnormality in the dome of the talus . Small plantar spur is present. Medial soft tissue swelling is present. IMPRESSION: Osteopenic and degenerative changes are present as detailed. Medial soft tissue swelling is present without fracture identifiable.
[2020-11-15 12:52] LABS: Potassium 3.7 mmol/L (3.5-5.1); Uric Acid 7.6 mg/dL (2.6-6.0)
--- NOTE | 2020-11-15 13:40 | EDPHYS ---
Physician Documentation [facility] Name: Josey Briscoe Age: 85 yrs Sex: Female : 1935 Arrival Date: 11/15/2020 Time: 09:49 Bed 7 Private MD: ED Physician Jon Ortiz HPI: 11/15 10:58 This 85 yrs old Female presents to ER via Unassigned with complaints of Ankle jmm Injury. 10:58 The patient presents with pain. Onset: The symptoms/episode began/occurred this jmm morning. Associated signs and symptoms: Pertinent negatives: calf tenderness, fever, swelling. Modifying factors: The symptoms are alleviated by elevation of extremity, the symptoms are aggravated by weight bearing. This is an 85 year old female with a history of gout that presents to the ED with complaints of left ankle pain with weight bearing. Denies trauma, denies fever. States a remote history of gout. . Historical: - Allergies: 11:00 No Known Allergies; ss - PMHx: 11:00 CVA; Gout; Hyperlipidemia; ss - PSHx: 11:00 Hysterectomy; Tonsillectomy; right femur repaired; ss - Immunization history:: Adult Immunizations. - Social history:: Smoking status: Patient denies any tobacco usage or history of. ROS: 10:58 Constitutional: Negative for fever, chills, and weight loss, Cardiovascular: Negative jmm for chest pain, palpitations, and edema, Respiratory: Negative for shortness of breath, cough, wheezing, and pleuritic chest pain. 10:58 MS/extremity: Positive for pain. 10:58 All other systems are negative. Exam: 10:58 Constitutional: This is a well developed, well nourished patient who is awake, alert, jmm and in no acute distress. Head/Face: atraumatic. Eyes: EOMI, no conjunctival erythema appreciated ENT: Moist Mucus Membranes Neck: Trachea midline, Supple Chest/axilla: Normal chest wall appearance and motion. Cardiovascular: Regular rate and rhythm. No edema appreciated Respiratory: Normal respirations, no respiratory distress appreciated Abdomen/GI: Non distended, soft Back: Normal ROM Skin: General appearance color normal 10:58 Musculoskeletal/extremity: left ankle ttp, no swelling appreciated, compartments are soft, NVI. 10:58 Skin: Appearance: Color: normal in color. 10:58 Neuro: Orientation: is normal, Mentation: is normal, Memory: is normal. 10:58 Psych: Behavior/mood is pleasant, cooperative. Vital Signs: 10:58 BP 107 / 76; Pulse 74; Resp 17; Temp 97.0(TE); Pulse Ox 99% on R/A; Weight 65.77 kg; ss Height 5 ft. 6 in. (167.64 cm); 11:56 BP 136 / 78; Pulse 60; Pulse Ox 99% on R/A; ap3 10:58 Body Mass Index 23.40 (65.77 kg, 167.64 cm) ss MDM: 10:58 Patient medically screened. [facility] 13:35 Data reviewed: vital signs, nurses notes. Counseling: I had a detailed discussion with [facility] the patient and/or guardian regarding: the historical points, exam findings, and any diagnostic results supporting the discharge/admit diagnosis, lab results, radiology results, the need for outpatient follow up, to return to the emergency department if symptoms worsen or persist or if there are any questions or concerns that arise at home. ED course: Patient is alert and non toxic in appearance in the ED. No signs of sepsis. Patient advised to follow up with pcp. Otherwise given strict return precautions. patient understood and agrees with the plan of care. . 11/15 10:56 Order name: CBC with Diff; Complete Time: 12:50 [facility] 11/15 10:56 Order name: BMP; Complete Time: 12:55 [facility] 11/15 10:56 Order name: US Extremity Venous Unilateral Ltd; Complete Time: 12:25 [facility] 11/15 10:56 Order name: Ankle Left 3 View XRAY; Complete Time: 12:50 [facility] 11/15 10:56 Order name: Saline Lock; Complete Time: 12:26 [facility] 11/15 10:56 Order name: Uric Acid; Complete Time: 12:55 [facility] Administered Medications: No medications were administered Disposition: 17:21 Co-signature as Attending Physician, Jon Ortiz MD. rn Disposition: 11/15/20 13:39 Discharged to Home. Impression: Gout. - Condition is Stable. - Discharge Instructions: Gout. - Prescriptions for Pepcid 20 mg Oral Tablet - take 1 tablet by ORAL route every 12 hours for 10 days; 20 tablet. Medrol (Jose) 4 mg Oral Tablets, Dose Pack - take 1 tablet by ORAL route as directed - follow package instructions; 1 packet. - Medication Reconciliation Form, Thank You Letter, Antibiotic Education, Prescription Opioid Use form. - Follow up: Private Physician; When: As needed; Reason: Recheck today's complaints, Continuance of care, Re-evaluation by your physician. Signatures: Dispatcher [employer] EDVirgil Denny PA PA jmm Nieto, Roman, MD MD rn Smirch, Shelby, RN RN ss Corrections: (The following items were deleted from the chart) 14:17 13:39 11/15/2020 13:39 Discharged to Home. Impression: Gout. Condition is Stable. Forms ss are Medication Reconciliation Form, Thank You Letter, Antibiotic Education, Prescription Opioid Use. Follow up: Private Physician; When: As needed; Reason: Recheck today's complaints, Continuance of care, Re-evaluation by your physician. barrie
--- NOTE | 2020-11-15 13:40 | ER ---
Nurse's Notes [facility] Name: Josey Briscoe Age: 85 yrs Sex: Female : 1935 Arrival Date: 11/15/2020 Time: 09:49 Bed 7 Private MD: Diagnosis: Gout Presentation: 11/15 10:58 Chief complaint: Spouse and/or significant other states: L medial ankle pain that began ss this morning after getting out of bed. No injury. Coronavirus screen: Client denies travel out of the [place] in the last 14 days. Ebola Screen: Patient denies exposure to infectious person. Patient denies travel to an Ebola-affected area in the 21 days before illness onset. Initial Sepsis Screen: Does the patient meet any 2 criteria? No. Patient's initial sepsis screen is negative. Does the patient have a suspected source of infection? No. Patient's initial sepsis screen is negative. Risk Assessment: Do you want to hurt yourself or someone else? Patient reports no desire to harm self or others. Onset of symptoms was November 15, 2020. 10:58 Method Of Arrival: Wheelchair ss 10:58 Acuity: EMILIE 4 ss Historical: - Allergies: 11:00 No Known Allergies; ss - PMHx: 11:00 CVA; Gout; Hyperlipidemia; ss - PSHx: 11:00 Hysterectomy; Tonsillectomy; right femur repaired; ss - Immunization history:: Adult Immunizations. - Social history:: Smoking status: Patient denies any tobacco usage or history of. Screenin:55 Abuse screen: Denies threats or abuse. Nutritional screening: No deficits noted. ap3 Tuberculosis screening: No symptoms or risk factors identified. Fall Risk No fall in past 12 months (0 pts). No secondary diagnosis (0 pts). IV access (20 points). Ambulatory Aid- None/Bed Rest/Nurse Assist (0 pts). Gait- Impaired (20 pts.). Mental Status- Oriented to own ability (0 pts). Assessment: 11:52 General: Appears in no apparent distress. uncomfortable, Behavior is calm, cooperative, ap3 appropriate for age. Pain: Complains of pain in left medial ankle Pain began This morning. Neuro: Level of Consciousness is awake, alert, obeys commands, Oriented to person, place, time, situation, Gait is unsteady. Cardiovascular: Capillary refill < 3 seconds Patient's skin is warm and dry. Respiratory: Airway is patent Respiratory effort is even, unlabored, Respiratory pattern is regular, symmetrical. Musculoskeletal: Reports pain in left medial ankle since this morning. 14:17 Reassessment: Patient appears in no apparent distress at this time. Patient and/or ss family updated on plan of care and expected duration. Pain level reassessed. Patient is alert, oriented x 3, equal unlabored respirations, skin warm/dry/pink. Vital Signs: 10:58 BP 107 / 76; Pulse 74; Resp 17; Temp 97.0(TE); Pulse Ox 99% on R/A; Weight 65.77 kg; ss Height 5 ft. 6 in. (167.64 cm); 11:56 BP 136 / 78; Pulse 60; Pulse Ox 99% on R/A; ap3 10:58 Body Mass Index 23.40 (65.77 kg, 167.64 cm) ED Course: 09:49 Patient arrived in ED. mr 10:54 Virgil Hilario PA is PHCP. jmm 10:54 Jon Ortiz MD is Attending Physician. jmm 11:00 Triage completed. ss 11:00 Arm band placed on right wrist. ss 11:38 US Extremity Venous Unilateral Ltd In Process Unspecified. EDMS 11:52 Kim Guzman, DONNA is Primary Nurse. ap3 11:56 Patient has correct armband on for positive identification. Bed in low position. Call ap3 light in reach. Side rails up X 1. Adult w/ patient. Pulse ox on. NIBP on. 12:05 Ankle Left 3 View XRAY In Process Unspecified. EDMS 12:24 Inserted saline lock: 22 gauge in right antecubital area, using aseptic technique. sv ,using aseptic technique. diffusics Blood collected. Flushed right antecubital with 2 ml normal saline. 12:26 CBC with Diff Sent. ap3 14:17 No provider procedures requiring assistance completed. IV discontinued, intact, ss bleeding controlled, No redness/swelling at site. Pressure dressing applied. Administered Medications: No medications were administered Outcome: 13:39 Discharge ordered by . [facility] 14:17 Discharged to home ambulatory. 14:17 Condition: good 14:17 Discharge instructions given to patient, Instructed on discharge instructions, follow up and referral plans. medication usage, Demonstrated understanding of instructions, follow-up care, medications, Prescriptions given X 2. 14:17 Patient left the ED. ss Signatures: Dispatcher [employer] Qian Hameed RN RN sv Mickail, Joel, PA PA jmm Rivera, Mary mr Viviana Linda RN RN ss Kim Guzman RN RN ap3
[2020-11-15 14:23] VITALS: TEMP 97; O2SAT 99
[2020-11-15 14:24] VITALS: BP 136/78
== END 2020-11-15 14:17 | disposition home or self-care (01) ==
LOC: ER 09:44
DX: M10.9 Gout, unspecified (principal)
CPT/HCPCS: 36415; 80048; 84550; 85025; 93971; 99284

== ENCOUNTER 2022-12-26 08:54 | Inpatient (IN) | payer OTHER ==
--- OUTSIDE RECORDS SUMMARY | 2022-12-26 09:20 | XMS REPORT | Continuity of Care Document ---
:1935 Author Organization [facility] t Address [address] [facility]. [address] [place] [address] Care Team Providers Name Role Phone STEFANIA SANTO Primary Care Physician Unavailable Stefania Santo MD Attending Clinician Stefania Santo MD Attending Clinician STEFANIA SANTO Attending Clinician Unavailable Opal Peraza LCSW Attending Clinician Only, Adc Test Attending Clinician Unavailable Poornima Otero MD Attending Clinician POORNIMA OTERO Attending Clinician Unavailable Doctor Unassigned, [place] Attending Clinician Unavailable Payers Payer Name Policy Type Policy Number Effective Date Expiration Date S ource Problems Condition Condition Condition Status Onset Resolution Last Treating Co mments Source Name Details Category Date Date Treatment Clinician Date 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 Vitamin D Vitamin D Disease Active [facility] deficiency deficiency 8-08 [facility] 00:[facility]: Medical 00 Center Vitamin Vitamin Disease Active [facility] B12 B12 [facility] deficiency deficiency 00:00: Me dical 00 Center 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 8-08 Bethanie kes emia emia 00:00: Medical 00 Center Right-side Right-side Disease Active [facility] low back d low back 7 [facility] pain pain 00:00: of without without 00 Medicin sciatica sciatica e 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[facility] change change 3-09 [place] 00:00: of 00 Medicin e Vitamin D Vitamin D Disease Active [place] [facility] deficiency deficiency 10-04 Co [facility]lege 00:00: of 00 Medicin e Hyperlipid Hyperlipid Disease Active [facility] emia emia 10-04 [place] 00:00: of 00 Medicin e Allergies, Adverse Reactions, Alerts Allergy Allergy Status Severity Reaction(s) Onset Inactive Treating Comm ents Source Name Type Date Date Clinician NO KNOWN Drug Active [facility] NO KNOWN Allergy Active [facility] Social History Social Habit Start Date Stop Date Quantity Comments Source Exposure to Not sure [facility]-CoV-2 [facility] (event) Branch Alcohol intake 2021-02-13 2021-02-13 Current [facility] 00:00:00 00:00:00 non-drinker of Medical nter alcohol (finding) Tobacco use and 2018-02-06 2018-02-06 Smokeless tobacco [facility] exposure 00:00:00 00:00:00 non-user Medical Center Sex Assigned At [birth year] [facility] sudhirs 00:00:00 00:00:00 Medical Center Smoking Status Start Date Stop Date Source Unknown if ever smoked [facility] Never smoked tobacco [facility] of Medicine Medications Ordered Filled Start Stop Current Ordering Indication Dosage Frequency Signature Comments Components Source Medication Medication Date Date Medication? Clinician (SIG) Name Name simvastatin Yes [id number] 20mg Take 20 mg [facility] (ZOCOR) 20 1-23 by mouth Colle [facility] MG tablet 10:30: every of evening. Medicin e allopurinol Yes 100mg Take 100 [facility] (ZYLOPRIM) 1-23 mg by [place] 100 MG 10:30: mouth. of tablet Medicin e aspirin 325 Yes 325mg Take 325 [facility] MG TBEC 1-23 mg by College 10:30: mouth. of 01 Medicin e B Complex Yes 1{tbl} Take 1 [facility] 1-23 Tablet by [facility] (B-COMPLEX/ 10:30: mouth of B-12) TABS 01 daily. Medicin e simvastatin Yes [id number] 20mg Take 20 mg [facility] (ZOCOR) 20 7-19 by mouth Colle ge MG tablet 10:58: every of 28 evening. Medicin e Aspirin 324 0 Yes [id number] 325{tbl Take 325 [facility] MG TBEF 7-19 } tablets by Colleg e 10:58: mouth of 28 daily. Medicin e allopurinol Yes 100mg Take 100 [facility] (ZYLOPRIM) 7-19 mg by [place] 100 MG 10:58: mouth. of tablet 28 Medicin e aspirin 325 0 Yes 325mg Take 325 [facility] TBEC 7-19 mg by [place] 10:58: mouth. of 28 Medicin e B Complex Yes 1{tbl} Take 1 [facility] 7-19 Tablet by [facility] (B-COMPLEX/ 10:58: mouth of B-12) TABS 28 daily. Medicin e simvastatin Yes [id number] 20mg Take 20 mg [facility] (ZOCOR) 20 7-19 by mouth Colle ge MG tablet 10:58: every of 28 evening. Medicin e Aspirin 324 0 Yes [id number] 325{tbl Take 325 [facility] MG TBEF 7-19 } [facility] of 28 daily. Medicin e allopurinol Yes 100mg Take 100 [facility] (ZYLOPRIM) 7-19 mg by [place] 100 MG 10:58: mouth. of tablet 28 Medicin e aspirin 325 0 Yes 325mg Take 325 [facility] MG TBEC 7-19 mg by [place] 10:58: mouth. of 28 Medicin e B Complex Yes 1{tbl} Take 1 [facility] 7-19 Tablet by [facility] (B-COMPLEX/ 10:58: mouth of B-12) TABS 28 daily. Medicin e simvastatin 0 Yes [id number] 20mg Take 20 mg [facility] (ZOCOR) 20 1-18 by mouth Colle ge MG tablet 11:02: every of 14 evening. Medicin e Aspirin 324 2021-0 Yes [id number] 325{tbl Take 325 [facility] MG TBEF 1-18 } [facility] mouth of 14 daily. Medicin e Memantine 2021-0 Yes [id number] 1{tbl} Take 1 [facility] HCl-Donepez 1-18 Tablet by Col lege il HCl 00:00: mouth of 28-10 MG 00 daily. Medicin CP24 e Memantine 2021-0 Yes [id number] 1{tbl} Take 1 [facility] HCl-Donepez 1-18 Tablet by Col lege il HCl 00:00: mouth of 28-10 MG 00 daily. Medicin CP24 e Memantine 2021-0 Yes [id number] 1{tbl} Take 1 [facility] HCl-Donepez 1-18 Tablet by Col lege il HCl 00:00: mouth of 28-10 MG 00 daily. Medicin CP24 e Memantine 2021-0 Yes [id number] 1{tbl} Take 1 [facility] HCl-Donepez 1-18 Tablet by Col lege il HCl 00:00: mouth of 28-10 MG 00 daily. Medicin CP24 e aspirin 325 Yes Memory loss 325mg QD Take [address] [facility] [address] MG EC 7-19 mg by [facility] tablet 10:55: mouth Medical 34 daily. [place] cholecalcif Yes Vitamin D 1000U QD Take 1,[address] [facility] [address] [facility]sanne 7-19 deficiency Units by [facility] (VITAMIN 10:55: mouth Medical D3) 1,000 34 daily. [place] unit tablet b complex Yes Vitamin B12 1{tbl} QD Take [address] [facility] vitamins (B 7-19 deficiency tablet by [facility] COMPLEX-VIT 10:55: mouth Medic al VELARDE B12) 34 daily. [place] tablet allopurinol Yes 100mg QD Take [address] (ZYLOPRIM) 7-19 mg by [facility] 100 MG 10:55: mouth Medical tablet 34 daily. [place] aspirin 325 Yes Memory loss 325mg QD Take [address] MG EC 7-19 mg by [facility] tablet 10:55: mouth Medical 34 daily. [place] cholecalcif Yes Vitamin D 1000U QD Take 1,[address] [facility] 7-19 deficiency Units by [facility] (VITAMIN 10:55: mouth Medical D3) 1,000 34 daily. [place] unit tablet b complex Yes Vitamin B12 1{tbl} QD Take [address] [facility] vitamins (B 7-19 deficiency tablet by [facility] COMPLEX-VIT 10:55: mouth Medic al VELARDE B12) 34 daily. [place] tablet allopurinol Yes 100mg QD Take [address] (ZYLOPRIM) 7-19 mg by [facility] 100 MG 10:55: mouth Medical tablet 34 daily. [place] aspirin 325 Yes Memory loss 325mg QD Take [address] MG EC 7-19 mg by [facility] tablet 10:55: mouth Medical 34 daily. [place] cholecalcif Yes Vitamin D 1000U QD Take 1,[address] [place]anne 7-19 deficiency Units by [place] (VITAMIN 10:55: mouth Medical D3) 1,000 34 daily. [place] unit tablet b complex Yes Vitamin B12 1{tbl} QD Take [address] [facility] vitamins (B 7-19 deficiency tablet by [facility] COMPLEX-VIT 10:55: mouth Medic al VELARDE B12) 34 daily. [place] tablet allopurinol Yes 100mg QD Take [address] (ZYLOPRIM) 7-19 mg by [facility] 100 MG 10:55: mouth Medical tablet 34 daily. [place] Namzaric Yes Memory loss 1{capsu QD Take [address] 28-10 mg 7-19 le} capsule by [facility] CSpX 00:00: mouth Medical 00 daily. [place] simvastatin Yes Mixed 20mg QD Take [address] [facility] [facility] (ZOCOR) 20 7-19 hyperlipide tablet (20 [facility] MG tablet 00:00: geno mg total) Med ical 00 by mouth Center daily. Namzaric Yes Memory loss 1{capsu QD Take [address] [facility] 28-10 mg 7-19 le} capsule by [facility] CSpX 00:00: mouth Medical 00 daily. [place] simvastatin Yes Mixed 20mg QD Take [address] (ZOCOR) 20 7-19 hyperlipide tablet (20 [facility] MG tablet 00:00: geno mg total) Med ical 00 by mouth Center daily. Namzaric Yes Memory loss 1{capsu QD Take [address] [facility] 28-10 mg 7-19 le} capsule by [facility] CSpX 00:00: mouth Medical 00 daily. [place] simvastatin Yes Mixed 20mg QD Take [address] (ZOCOR) 20 7-19 hyperlipide tablet (20 [facility] MG tablet 00:00: geno mg total) Med ical 00 by mouth Center daily. Memantine 2017-2021- No 1{tbl} Take 1 Tab [facility] HCl-Donepez 6-04 -18 by mouth Col [facility]ge il HCl 00:00: 00:00 daily. of 28-10 MG 00 :00 Medicin CP24 e cyanocobala 2016-07 Yes 1000ug Take 1 Tab [facility] min 1000 2-06 by [facility] MCG tablet 00:00: daily. of 00 Medicin e Cholecalcif 2016-07 Yes 1{tbl} Take 1 Tab [facility] rosanne 2-06 by [facility] (VITAMIN D) 00:00: daily. of 1000 UNITS 00 Medicin TABS e cyanocobala 2016-07 Yes 1000ug Take 1 Tab [facility] min 1000 2-06 by [facility] MCG tablet 00:00: daily. of 00 Medicin e Cholecalcif 2016-07 Yes 1{tbl} Take 1 Tab [facility] rosanne 2-06 by [facility] (VITAMIN D) 00:00: daily. of 1000 UNITS 00 Medicin TABS e cyanocobala 2016-07 Yes 1000ug Take 1 Tab [facility] min 1000 2-06 by [facility] MCG tablet 00:00: daily. of 00 Medicin e Cholecalcif 2016-07 Yes 1{tbl} Take 1 Tab [facility] rosanne 2-06 by [facility] (VITAMIN D) 00:00: daily. of 1000 UNITS 00 Medicin TABS e cyanocobala 2016-07 Yes 1000ug Take 1 Tab [facility] min 1000 2-06 by [facility] MCG tablet 00:00: daily. of 00 Medicin e Cholecalcif 2016-07 Yes 1{tbl} Take 1 Tab [facility] rosanne 2-06 by [facility] (VITAMIN D) 00:00: daily. of 1000 UNITS 00 Medicin TABS e Immunizations Ordered Immunization Filled Immunization Date Status Commen ts Source Name Name Moderna .25mL BOOSTER 2021-05-24 Completed [facility] SARS-CoV-2 00:00:00 of Medicine Vaccination Moderna .25mL BOOSTER 2021-05-24 Completed [facility] SARS-CoV-2 00:00:00 of Medicine Vaccination Moderna .25mL BOOSTER 2021-05-24 Completed [facility] SARS-CoV-2 00:00:00 of Medicine Vaccination Moderna .25mL BOOSTER 2021-05-24 Completed [facility] SARS-CoV-2 00:00:00 of Medicine Vaccination Influenza Hd 2021-05-07 Completed [facility] ge 00:00:00 of Medicine Influenza Hd 2021-05-07 Completed [facility] ge 00:00:00 of Medicine Influenza Hd 2021-05-07 Completed [facility] Colle ge 00:00:00 of Medicine Influenza Hd 2021-05-07 Completed [facility] ge 00:00:00 of Medicine Moderna SARS-CoV-2 2020-09-08 Completed [facility] Vaccination 00:00:00 of Medicine Moderna .5mL 2020-09-08 Completed [facility] ge SARS-CoV-2 00:00:00 of Medicine Vaccination Moderna SARS-CoV-2 2020-09-08 Completed [facility] Vaccination 00:00:00 of Medicine Moderna SARS-CoV-2 2020-09-08 Completed [facility] Vaccination 00:00:00 of Medicine Moderna SARS-CoV-2 2020-08-11 Completed [facility] Vaccination 00:00:00 of Medicine Moderna .5mL 2020-08-11 Completed [facility] ge SARS-CoV-2 00:00:00 of Medicine Vaccination Moderna SARS-CoV-2 2020-08-11 Completed [facility] Vaccination 00:00:00 of Medicine Moderna SARS-CoV-2 2020-08-11 Completed [facility] Vaccination 00:00:00 of Medicine Influenza TIV (IM) 2019-05-[address] [facility] 00:00:00 [facility] Influenza TIV (IM) 2019-05-[address] [facility] 00[facility]00:00 [facility] Influenza TIV (IM) 2019-05-[address] [facility] 00[facility]00:[address] [facility] Pneumococcal 2018-08-[address] [facility] Conjugate (Prevnar) 00:00:00 [facility] Pneumococcal 2018-08-[address] [facility] Conjugate (Prevnar) 00:00:00 [facility] Pneumococcal 2018-08-[address] [facility] Conjugate (Prevnar) 00:00:00 [facility] SHINGLES VARICELLA 2018-07-[address] [facility] (ZOSTAVAX) ZOSTER 00:00:00 [facility] SHINGLES VARICELLA 2018-07-[address] [facility] (ZOSTAVAX) ZOSTER 00:00:00 Medical Center SHINGLES VARICELLA 2018-07-[address] [facility] (ZOSTAVAX) ZOSTER 00:00:00 Medical Center Td 7+ years, (TDVAX) 2016-12-[address] [facility] 2 Lf tetanus toxoid 00:00:00 Medic al Center preservative free Td 7+ years, (TDVAX) 2016-12-[address] [facility] 2 Lf tetanus toxoid 00:00:00 Medic al Center preservative free Td 2016-12-27 Completed [facility] 00:00:00 of Medicine Td 2016-12-27 Completed [facility] 00:00:00 of Medicine Td 2016-12-27 Completed [facility] 00:00:00 of Medicine Td 2016-12-27 Completed [facility] 00:00:00 of Medicine Td 7+ years, (TDVAX) 2016-12-[address] [facility] 2 Lf tetanus toxoid 00:00:00 Medic al Center preservative free Pneumococcal 2016-06-[address] [facility] Polysaccharide 00:00:00 Medical Ce nter (Pneumovax) Pneumococcal 2016-06-[address] [facility] Polysaccharide 00:00:00 Medical Ce nter (Pneumovax) Pneumococcal 2016-06-28 Completed [facility] Colle ge Polysaccharide 00:00:00 of Medicin e Pneumococcal 2016-06-28 Completed [facility] Colle ge Polysaccharide 00:00:00 of Medicin e Pneumococcal 2016-06-28 Completed [facility] Colle ge Polysaccharide 00:00:00 of Medicin e Pneumococcal 2016-06-28 Completed [facility] Colle ge Polysaccharide 00:00:00 of Medicin e Pneumococcal 2016-06-[address] [facility] Polysaccharide 00:00:00 Medical Ce nter (Pneumovax) Influenza (whole) 2016-04-28 Completed [facility] 00:00:00 of Medicine Influenza (whole) 2016-04-28 Completed [facility] 00:00:00 of Medicine Influenza (whole) 2016-04-28 Completed [facility] 00:00:00 of Medicine Influenza (whole) 2016-04-28 Completed [facility] 00:00:00 of Medicine Vital Signs Vital Name Observation Time Observation Value Comments Source Systolic blood 2022-08-20 16:30:00 120 mm[Hg] [facility] pressure Medicine Diastolic blood 2022-08-20 16:30:00 81 mm[Hg] [facility] Medicine Heart rate 2022-08-20 16:30:00 97 /min [facility] Body temperature 2022-08-20 16:30:00 36.78 [facility] Respiratory rate 2022-08-20 16:30:00 16 /min [facility] Body height 2022-08-20 16:30:00 [facility] Body weight 2022-08-20 16:30:00 [facility]13 [facility] BMI 2022-08-20 16:30:00 25.78 [facility]2 [facility] Oxygen saturation in 2022-08-20 16:30:00 95 /min [facility] of Arterial blood by Medicine Pulse oximetry Systolic blood 2022-02-13 15:58:00 119 mm[Hg] [facility] Medicine Diastolic blood 2022-02-13 15:58:00 77 mm[Hg] [facility] Medicine Heart rate 2022-02-13 15:58:00 72 /min [facility] Body temperature 2022-02-13 15:58:00 36.94 Rad[facility] Respiratory rate 2022-02-13 15:58:00 16 /min [facility] Body height 2022-02-13 15:58:00 162.6 [facility] Body weight 2022-02-13 15:58:00 67.132 [facility] BMI 2022-02-13 15:58:00 25.40 [facility]m2 [facility] Oxygen saturation in 2022-02-13 15:58:00 94 /min [facility] of Arterial blood by Medicine Pulse oximetry Systolic blood 2021-08-15 17:02:00 130 mm[Hg] [facility] Medicine Diastolic blood 2021-08-15 17:02:00 83 mm[Hg] [facility] Medicine Heart rate 2021-08-15 17:02:00 89 /min [facility] ol[facility] of Medicine Body weight 2021-08-15 17:02:00 65.772 kg [facility] BMI 2021-08-15 17:02:00 23.40 kg/m2 [facility] HEIGHT 2021-02-13 10:53:00 167.6 cm WEIGHT 2021-02-13 10:53:00 66.044 kg WEIGHT 2020-08-18 13:56:00 67.949 kg WEIGHT 2020-01-19 00:00:00 65.545 kg WEIGHT 2020-01-19 00:00:00 65.545 kg Procedures Procedure Date / Time Performing Clinician Source Performed COMPREHENSIVE METABOLIC 2022-08-20 17:38:00 Stefania Santo [facility] PANEL Medicine LIPID PANEL 2022-08-20 17:38:00 Stefania Santo [facility] URIC ACID 2022-08-20 17:38:00 Stefania Santo [facility] CBC W/AUTO DIFF WITH 2022-08-20 17:38:00 Stefania Santo [facility] PLATELE[facility] Medicine VITAMIN D 25 HYDROXY 2022-08-20 17:38:[address] [facility] XR DXA BONE DENSITY 2022-02-13 13:06:00 Stefania Santo [facility] COMPREHENSIVE METABOLIC 2021-08-15 18:18:00 Stefania Santo [facility] PANEL Medicine LIPID PANEL 2021-08-15 18:18:00 Stefania Santo [facility] URIC ACID 2021-08-15 18:18:00 Stefania Santo [facility] CBC W/AUTO DIFF WITH 2021-08-15 18:18:00 Stefania Santo [facility] Medicine VITAMIN D 25 HYDROXY 2021-08-15 18:18:[address] [facility] ASSIGNMENT OF BENEFITS 2020-07-19 21:02:39 Doctor Unassigned, No [facility] Plan of Care Planned Activity Planned Date Details Comments Source Future Scheduled 2026-12-27 DTAP/TDAP/TD [facility] 00:[facility]:00 VACCINES (2 - Td or Medical Center Tdap) [code = DTAP/TDAP/TD VACCINES (2 - Td or Tdap)] Future Scheduled 2026-12-27 DTAP/TDAP/TD [facility] Test 00:00:00 VACCINES (2 - Td or Medical Center Tdap) [code = DTAP/TDAP/TD VACCINES (2 - Td or Tdap)] Future Scheduled 2026-12-27 DTAP/TDAP/TD [facility] Test 00:00:00 VACCINES (2 - Td or Medical Center Tdap) [code = DTAP/TDAP/TD VACCINES (2 - Td or Tdap)] Future Scheduled 2023-03-[address] [facility] Test 00:00:00 (Season Ended) [code Medical Center = INFLUENZA VACCINE (Season Ended)] Future Scheduled 2023-03-[address] [facility] Test 00:00:00 (Season Ended) [code Medical Center = INFLUENZA VACCINE (Season Ended)] Future Scheduled 2022-08-22 BMI Follow Up Plan [employer] [facility] 21:50:39 [code = BMI Follow of Medici ne Up Plan] Future Scheduled 2022-08-22 ZOSTER VACCINE (1 of [place] [facility] [employer] Test 21:50:39 2) [code = ZOSTER of Medicin e VACCINE (1 of 2)] Future Scheduled 2022-08-22 Pneumococcal 65+ (2 [employer] [facility] 21:50:39 - PCV) [code = of Medicine Pneumococcal 65+ (2 - PCV)] Future Scheduled 2022-08-22 COVID-19 Vaccine (4 [employer] Test 21:50:39 - Booster for of Medicine Moderna series) [code = COVID-19 Vaccine (4 - Booster for Moderna series)] Future Scheduled 2022-08-22 FLU VACCINE > 6 [facility] C [facility]lege Test 21:50:39 MONTHS [code = FLU of Medici ne VACCINE > 6 MONTHS] Future Scheduled 2022-08-22 Fall Screen [code = [employer] [facility] 21:50:39 Fall Screen] of Medicine Future Scheduled 2022-08-22 TETANUS SHOT (ADULT) [place] [facility] [employer] Test 21:50:39 [code = TETANUS SHOT of Medi cine (ADULT)] Future Scheduled 2022-07-[address] [facility] Test 00:00:00 (12+) [code = Medical Center DEPRESSION SCREENING (12+)] Future Scheduled 2022-07-29 FALLS RISK SCREENING [facility] Test 00:00:00 [code = FALLS RISK Medical C enter SCREENING] Future Scheduled 2022-07-[address] [facility] Test 00:00:00 (12+) [code = Medical Center DEPRESSION SCREENING (12+)] Future Scheduled 2022-07-29 FALLS RISK SCREENING [facility] Test 00:00:00 [code = FALLS RISK Medical C enter SCREENING] Future Scheduled 2022-07-[address] [facility] Test 00:00:00 (12+) [code = Medical Center DEPRESSION SCREENING (12+)] Future Scheduled 2022-07-29 FALLS RISK SCREENING [facility] Test 00:00:00 [code = FALLS RISK Medical C enter SCREENING] Future Scheduled 2022-03-[address] [facility] Test 00:00:00 (#1) [code = Medical Center INFLUENZA VACCINE (#1)] Future Scheduled 2022-02-13 BMI FOLLOW UP PLAN [employer] [facility] 16:26:56 [code = BMI FOLLOW of Medici ne UP PLAN] Future Scheduled 2022-02-13 ZOSTER VACCINE (1 of [place] [facility] [employer] Test 16:26:56 2) [code = ZOSTER of Medicin e VACCINE (1 of 2)] Future Scheduled 2022-02-13 Pneumococcal 65+ (2 [employer] [facility] 16:26:56 - PCV) [code = of Medicine Pneumococcal 65+ (2 - PCV)] Future Scheduled 2022-02-13 MEDICARE AWV [facility] Test 16:26:56 (Initial) [code = of Medicin e MEDICARE AWV (Initial)] Future Scheduled 2022-02-13 COVID-19 Vaccine (4 [employer] Test 16:26:56 - Booster for of Medicine Moderna series) [code = COVID-19 Vaccine (4 - Booster for Moderna series)] Future Scheduled 2022-02-13 FLU VACCINE > 6 [facility] Test 16:26:56 MONTHS [code = FLU of Medici ne VACCINE > 6 MONTHS] Future Scheduled 2022-02-13 FALL SCREEN [code = [employer] [facility] 16:26:56 FALL SCREEN] of Medicine Future Scheduled 2022-02-13 TETANUS SHOT (ADULT) [place] [employer] Test 16:26:56 [code = TETANUS SHOT of Medi cine (ADULT)] Future Scheduled 2022-02-13 BMI FOLLOW UP PLAN [employer] Test 16:26:56 [code = BMI FOLLOW of Medici ne UP PLAN] Future Scheduled 2022-02-13 ZOSTER VACCINE (1 of [place] [facility] [employer] Test 16:26:56 2) [code = ZOSTER of Medicin e VACCINE (1 of 2)] Future Scheduled 2022-02-13 Pneumococcal 65+ (2 [employer] [facility] 16:26:56 - PCV) [code = of Medicine Pneumococcal 65+ (2 - PCV)] Future Scheduled 2022-02-13 MEDICARE AWV [facility] Test 16:26:56 (Initial) [code = of Medicin e MEDICARE AWV (Initial)] Future Scheduled 2022-02-13 COVID-19 Vaccine (4 [employer] Test 16:26:56 - Booster for of Medicine Moderna series) [code = COVID-19 Vaccine (4 - Booster for Moderna series)] Future Scheduled 2022-02-13 FLU VACCINE > 6 [facility] Test 16:26:56 MONTHS [code = FLU of Medici ne VACCINE > 6 MONTHS] Future Scheduled 2022-02-13 FALL SCREEN [code = [employer] Test 16:26:56 FALL SCREEN] of Medicine Future Scheduled 2022-02-13 TETANUS SHOT (ADULT) [place] [employer] Test 16:26:56 [code = TETANUS SHOT of Medi cine (ADULT)] Future Scheduled 2022-02-13 DEXA BONE DENSITY 1 Occurrences [employer] Test 11:18:40 SPINE AND HIP [code starting of Medic ine = 82644] 02/13/2022 until 02/13/2023 Future Scheduled 2021-09-24 COVID-19 VACCINE ([address] [facility] Test 00:00:00 - Booster for Medical Center Moderna series) [code = COVID-19 VACCINE (4 - Booster for Moderna series)] Future Scheduled 2021-08-[address] [facility] Test 00:00:00 Counseling and Medical Cente r Screening (12+) [code = Tobacco Cessation Counseling and Screening (12+)] Future Scheduled 2021-08-[address] [facility] Test 00:00:00 Counseling and Medical Cente r Screening (12+) [code = Tobacco Cessation Counseling and Screening (12+)] Future Scheduled 2021-08-[address] [facility] Test 00:00:00 Counseling and Medical Cente r Screening (12+) [code = Tobacco Cessation Counseling and Screening (12+)] Future Scheduled 2021-08-16 ZOSTER VACCINE (1 of [facility] Test 11:33:35 2) [code = ZOSTER of Medicin e VACCINE (1 of 2)] Future Scheduled 2021-08-16 FALL SCREEN [code = [facility] or [place] Test 11:33:35 FALL SCREEN] of Medicine Future Scheduled 2021-08-16 MEDICARE AWV [facility] Test 11:33:35 (Initial) [code = of Medicin e MEDICARE AWV (Initial)] Future Scheduled 2021-08-16 TETANUS SHOT (ADULT) [place] [employer] Test 11:33:35 [code = TETANUS SHOT of Medi cine (ADULT)] Future Scheduled 2021-07-19 COVID-19 VACCINE ([address] [facility] Test 00:00:00 - Booster for Medical Center Moderna series) [code = COVID-19 VACCINE (4 - Booster for Moderna series)] Future Scheduled 2021-07-19 COVID-19 VACCINE ([address] [facility] 00:00:00 - Booster for Medical Center Moderna series) [code = COVID-19 VACCINE (4 - Booster for Moderna series)] Future Scheduled 2018-09-23 SHINGLES VACCINES ([address] [facility] 00:00:00 of 3) [code = Medical Center SHINGLES VACCINES (2 of 3)] Future Scheduled 2018-09-23 SHINGLES VACCINES ([address] [facility] 00:00:00 of 3) [code = Medical Center SHINGLES VACCINES (2 of 3)] Future Scheduled 2018-09-23 SHINGLES VACCINES ([address] [facility] 00:00:00 of 3) [code = Medical Center SHINGLES VACCINES (2 of 3)] Future Scheduled 2018-07-[address] [facility] 00:[facility]:00 WELLNESS (YEAR 2 or Medical Center FIRST YEAR if no IPPE) [code = MEDICARE ANNUAL WELLNESS (YEAR 2 or FIRST YEAR if no IPPE)] Future Scheduled 2018-07-[address] [facility] 00:00:00 WELLNESS (YEAR 2 or Medical Center FIRST YEAR if no IPPE) [code = MEDICARE ANNUAL WELLNESS (YEAR 2 or FIRST YEAR if no IPPE)] Future Scheduled 2018-07-[address] [facility] 00:00:00 WELLNESS (YEAR 2 or Medical Center FIRST YEAR if no IPPE) [code = MEDICARE ANNUAL WELLNESS (YEAR 2 or FIRST YEAR if no IPPE)] Encounters Start End Encounter Admission Attending Care Care Encounter Source Date/Time Date/Time Type Type Clinicians Facility Department ID 2022-08-20 2022-08-20 Office YAHIR Santo [id number] [facility] 11:00:00 11:33:27 Visit Stefania P AMBULATOR 350.1.13.21 College Y 0.2.7.2.686 of [id number] Medi smitha 395 e 2022-02-13 2022-02-13 [facility] [id number] [facility] 12:28[facility] 23:59:[address] [facility] 2022-02-13 2022-02-13 [facility] [id number] 12:28:53 23:59:[address] [facility] 2022-02-13 2022-02-13 Outpatient H[facility]SA [facility] [id number] [facility] 12:28:53 23:59:00 STEFANIA 2022-02-13 2022-02-13 Office YAHIR Santo [id number] [facility] 11:00:00 11:30:00 Visit Stefania P AMBULATOR 350.1.13.21 College Y 0.2.7.2.686 of [id number] Medi smitha 395 e 2022-02-13 2022-02-13 Office YAHIR Peraza [id number] [facility] 11:00:00 11:30:00 Visit Tziona AMBULATOR 350.1.13.21 College Y 0.2.7.2.686 of [id number] Medi smitha 395 e 2022-02-13 2022-02-13 Outside [facility] [id number] 00:[facility] 00:00:[address] [facility] 2022-02-13 2022-02-[address] [facility] [id number] [facility] [place] [facility] 00:00:00 00:00:00 Orders Stefania Anderson [facility] 2021-08-15 2021-08-15 Office Hansa YAHIR [id number] [facility] 11:00:00 12:09:25 Visit Stefania Clay AMBULATOR 350.1.13.21 [place] [facility] 0.2.7.2.686 [id number] [facility] 395 e 2021-08-15 2021-08-15 [facility] [id number] [facility] 00:00:00 00:00:00 STEFANIA 2021-02-13 2021-02-13 Outpatient ANTHONY SANTO [facility] SLE [id number] SLE 00:00:00 00:00:00 STEFANIA 2020-08-18 2020-08-18 Outpatient ANTHONY SANTO [facility] SLE [id number] SLE 00:00:00 00:00:00 STEFANIA 2020-07-19 2020-07-19 Laboratory Only, [facility] [id number] 15:05:07 15:20:07 Only Test Rosaline 350.1.13.10 [place] 4.2.7.2.686 [place] [id number] [facility] 2020-07-19 2020-07-19 Laboratory Only, Adc Test [facility] 1.2.840. 114 [id number] Univers 15:05:07 15:20:07 Only [facility]ima O[facility].10 [facility]2.7[facility]2.686 [facility] [id number] [place] [address] [address] 2020-07-19 2020-07-19 Outpatient Jhoana OTERO [facility] [id number] Univers 15:15:00 15:15:00 POORNIMA mclaughlin [facility] 2020-07-19 2020-07-19 Orders Doctor ESCOBAR [id number] Univers 00:00:00 00:00:00 Only UnassignedPAIGE 350.1.13.10 [facility] [place] [facility] 4.2.7.2.686 Johnathan as [id number] [facility] [address] 2020-07-19 2020-07-19 Orders Doctor LUZ 1.2.840.114 [id number] 00:00:00 00:00:00 Only Unassigned, PAIGE 350.1.13.10 [place] [facility] 4.2.7.2.686 [id number] 2020-01-19 2020-01-19 Outpatient EL [facility] [id number] [facility] 00:00:00 00:00:00 Results Test Description Test Time Test Comments Results Result Comments Source VITAMIN D 25 HYDROXY 2022-08-21 17:58:19 Test Item Value Reference Range Interpretation Comme nts VITAMIN D 25-HYDROXY (test SEE BELOW NG/ML $$$EFFECTIVE 08/06/2022, PLEASE NOTE code = 1988-) NEW METHODOLO GY IS$$$ ELECTROCHEMILUM INESCENCE BINDING ASSAY. NOTE: 25-HYDROX YVITAMIN D ASSAY INCLUDES 25-HYD ROXYVITAMIN D2 AND D3. $$$$$ INTERPRET SEBASTIAN RANGES $$$$$PEDIATRIC (<17 YEARS) . . . . . . . . . . . NG/ML 20-100ADULT: INSUFFICIENT . . . . . . . . . . . . . . NG/ML <20 SUB OPTIMAL . . . . . . . . . . . . . . . N G/ML 20-29 OPTIMAL . . . . . . . . . . . . . . . . . NG/ML 30-100 Unless O therwise Indicated, All Testing Perform ed At: Clinical Pathology [facility], [address] [place] [address] 4 [employer] Sales Representative: Rodney landry M.D. CLIA Number [id number] [place]. [id number] [facility] [id number] 12:45:46 Test Item Value Reference Range Interpretation Comments GLUCOSE (test code = See_Comment [Autom ated message] The 6645-7) system which ge nerated this result tra nsmitted reference range : 70 - 99 MG/DL. The refe rence range was not u sed to interpret this result as normal/abnormal . BLOOD UREA NITROGEN See_Comment [Automa pati message] The (test code = 3091-6) system which generated this result tra nsmitted reference range : 8 - 23 MG/DL. The refe rence range was not u sed to interpret this result as normal/abnormal . CREATININE (test code See_Comment [Auto mated message] The = ) system which ge nerated this result tra nsmitted reference range : 0.60 - 1.30 MG/DL. The reference range was not used to interpr et this result as normal/abnormal . EGFR (test code = See_Comment [Automate d message] The 84077-0) system which ge nerated this result tra nsmitted reference range : >60 ML/MIN/1.73. Th e reference range was not used to interpr et this result as normal/abnormal . BUN/CREAT RATIO (test See_Comment [Auto mated message] The code = 3097-3) system which generated this result tra nsmitted reference range : 6 - 28 RATIO. The refe rence range was not u sed to interpret this result as normal/abnormal . SODIUM (test code = See_Comment [Automa pati message] The 29507-30) system which ge nerated this result tra nsmitted reference range : 133 - 146 MEQ/L. The reference range was not u sed to interpret this result as normal/abnormal . POTASSIUM (test code = See_Comment [Aut omated message] The 3) system which ge nerated this result tra nsmitted reference range : 3.5 - 5.4 MEQ/L. The reference range was not u sed to interpret this result as normal/abnormal . CHLORIDE (test code = See_Comment [Auto mated message] The ) system which ge nerated this result tra nsmitted reference range : 95 - 107 MEQ/L. The reference range was not u sed to interpret this result as normal/abnormal . CO2 (test code = See_Comment [Automated message] The 1963-02) system which ge nerated this result tra nsmitted reference range : 19 - 31 MEQ/L. The refe rence range was not u sed to interpret this result as normal/abnormal . CALCIUM (test code = See_Comment [Autom ated message] The 38086-3) system which ge nerated this result tra nsmitted reference range : 8.5 - 10.5 MG/DL. The reference range was not used to interpr et this result as normal/abnormal . PROTEIN TOTAL (test See_Comment [Automa pati message] The code = 2885-2) system which generated this result tra nsmitted reference range : 6.1 - 8.3 G/DL. The r eference range was not u sed to interpret this result as normal/abnormal . ALBUMIN (test code = See_Comment [Autom ated message] The 44565-3) system which ge nerated this result tra nsmitted reference range : 3.5 - 5.2 G/DL. The r eference range was not u sed to interpret this result as normal/abnormal . GLOBULINS, SERUM, See_Comment [Automate d message] The TOTAL (test code = system ich generated 11093-9) this result tra nsmitted reference range : 1.9 - 3.7 G/DL. The r eference range was not u sed to interpret this result as normal/abnormal . A/G RATIO (test code = See_Comment [Aut omated message] The 1759-0) system which ge nerated this result tra nsmitted reference range : 1.0 - 2.6 RATIO. The reference range was not u sed to interpret this result as normal/abnormal . BILIRUBIN TOTAL (test See_Comment [Auto mated message] The code = 1975-2) system which generated this result tra nsmitted reference range : <=1.2 MG/DL. The refe rence range was not u sed to interpret this result as normal/abnormal . ALKALINE PHOSPHATASE 115 U/L 40-142 (test code = 6768-6) AST (SGOT) (test code 17 U/L 9-40 = 1920-8) ALT (SGPT) (test code 12 U/L 5-40 Unles s Otherwise = 1744-2) Indicated, All Testing Performed At: C linical Pathology [facility], [address] [place] [address], [place], [place] [address] [place] [address] Director: Rodney Davila M.D. CLIA Number [id number] [place]. [id number] [facility] HospitalLIPID [id number] 12:45:46 Test Item Value Reference Range Interpretation Comments CHOLESTEROL (test code See_Comment [Aut omated message] = 2092-3) The system whic h generated this result transmitted ref erence range: <200 MG/ DL. The reference range was not used to int erpret this result as normal/abnormal . TRIGLYCERIDES (test See_Comment H [Automa pati message] code = 2571-8) The system [facility] generated this result transmitted ref erence range: <150 MG/ DL. The reference range was not used to int erpret this result as normal/abnormal . HDL CHOLESTEROL (test See_Comment [Auto mated message] code = 2085-9) The system [facility] generated this result transmitted ref erence range: >39 MG/D L. The reference range was not used to int erpret this result as normal/abnormal . LDL CHOLESTEROL See_Comment H NOTE: CALCU LATED LDL CALCULATED (test code = [place] [address]-0) HEMANT METHOD WHICHINCLUDES ADJUSTABLE TRIGLYCERIDE:VL DL CHOLESTEROL RAT IO.THIS FACTOR VARIES B Y MEASURED TRIGLY CERIDE AND NON-HDLCHOL ESTEROL CONCENTRATIONS WITH INCREASED CALCU LATED LDL SEENIN HIGH ER TRIGLYCERIDE OR LOWER NON-HDL SPECIME NS. FOR MOREINFORMATION , SEE CLIENT ANNOUNCE MENT AT [email or web address] [Aut omated message] The sy stem which generated this result transmit pati reference range : <100 MG/DL. The refe rence range was not u sed to interpret this result as normal/abnor mal. LDL/HDL RATIO (test See_Comment Unless Otherwise code = 16760-7) Indicated, A ll Testing Performed At: [address] [facility], [address] [place] [address] Laborator y Director: Arie Bueno Number [id number] [place]. [id number] [Autom ated message] The sy stem which generated this result transmit pati reference range : <3.22 RATIO. The refe rence range was not u sed to interpret this result as normal/abnor mal. Lab Interpretation Abnormal (test code = 03453-3) [facility] [id number] 12:45:46 Test Item Value Reference Range Interpretation Comments URIC ACID (test code See_Comment Unless Otherwise = 3084-1) Indicated, All Testing Performed At: [address] [facility], [address] [place] [address] Laborator y Director: Rodney landry M.D. CLIA Number [id number] [place]. [id number] [Automated mess age] The system which ge nerated this result transmit pati reference range : 2.7 - 6.1 MG/DL. The refe rence range was not used to interpret this result as normal/abnormal . [facility] W/AUTO DIFF WITH [id number] 09:45:30 Test Item Value Reference Range Interpretation Comments WHITE BLOOD CELL COUNT See_Comment [Aut omated message] (test code = 85861-0) The sy stem which generated this result transmitted ref erence range: 3.5 - 11 .0 K/UL. The refer ence range was not u sed to interpret this result as normal/abnor mal. RED BLOOD CELL COUNT See_Comment [Autom ated message] (test code = 54152-9) The sy stem which generated this result transmitted ref erence range: 3.80 - 5 .40 M/UL. The refer ence range was not u sed to interpret this result as normal/abnor mal. HEMOGLOBIN (test code = See_Comment [Au tomated message] 718-7) The system whic h generated this result transmitted ref erence range: 11.5 - 1 5.5 G/DL. The refer ence range was not u sed to interpret this result as normal/abnor mal. HEMATOCRIT (test code = 44.1 % 34.0-45.0 12579-7) MEAN CORPUSCULAR VOLUME 90.0 fL 80.0-99.0 (test code = 04890-6) MEAN CORPUSCULAR 30.0 PG 25.0-33.0 HEMOGLOBIN (test code = 90921-3) MEAN CORPUSCULAR See_Comment [Automated message] HEMOGLOBIN CONC (test The sy stem which code = 76216-8) generated th is result transmitted ref erence range: 31.0 - 3 6.0 G/DL. The refer ence range was not u sed to interpret this result as normal/abnor mal. RED CELL DISTRIBUTION 14.2 % 11.5-15.0 WIDTH (test code = 85482-3) NEUTROPHILS % (test code 57.4 % = 60733-5) LYMPHOCYTES % (test code 31.3 % = 53798-0) MONOCYTES % (test code = 9.6 % 65434-9) EOSINOPHILS % (test code 0.8 % = 19696-1) BASOPHILS % (test code = 0.5 % 18876-0) IMMATURE GRANULOCYTES 0.4 % (test code = 30726-9) NUCLEATED RBC'S See_Comment Unless Othe rwise MYELOPEROX STAIN (test Indic ated, All Testing code = 96881-0) Performed At : [facility], [address] [place] [address], [place] [address] Laborator y Director: Rodney Davila M.D. CLIA Number [id number] [place]. [id number] [Autom ated message] The sy stem which generated this result transmit pati reference range : 0.00 - 0.11 K/UL. Th e reference range was not used to int erpret this result as normal/abnormal . PLATELET COUNT (test See_Comment [Autom ated message] code = 80518-2) The system w [employer] generated this result transmitted ref erence range: 130 - 40 0 K/UL. The reference r nikky was not used to interpret this result as normal/abnor mal. NEUTROPHILS ABSOLUTE See_Comment [Autom ated message] COUNT (test code = The syste m which 75669-2) generated this result transmitted ref erence range: 1.50 - 7 .50 K/UL. The refer ence range was not u sed to interpret this result as normal/abnor mal. LYMPHOCYTES ABSOLUTE See_Comment [Autom ated message] COUNT (test code = The syste m which 64747-7) generated this result transmitted ref erence range: 1.00 - 4 .00 K/UL. The refer ence range was not u sed to interpret this result as normal/abnor mal. MONOCYTES ABSOLUTE COUNT See_Comment [A utomated message] (test code = 13269-0) The sy stem which generated this result transmitted ref erence range: 0.20 - 1 .00 K/UL. The refer ence range was not u sed to interpret this result as normal/abnor mal. BASOPHILS ABSOLUTE COUNT See_Comment [A utomated message] (test code = 75417-1) The sy stem which generated this result transmitted ref erence range: 0.00 - 0 .20 K/UL. The refer ence range was not u sed to interpret this result as normal/abnor mal. IMMATURE GRANS (ABS) See_Comment [Autom ated message] (test code = 9987) The syste m which generated this result transmitted ref erence range: 0.00 - 0 .10 K/UL. The refer ence range was not u sed to interpret this result as normal/abnor mal. [facility] HospitalRAD, BONE DENSITY [id number] 13:13:00Reason for Exam:->Osteopenia of multiple sites [facility] : 1935 Sex: FFINAL REPORT Exam: Bone mineral density study. History: Osteopenia. Comparison: None Discussion: Evaluation of the left hip and lumbar spine was performed utilizing DEXA Hologic bonedensitometer. The study is technically adequate. Left hip total bone mineral density: 0.641gm/cm2, T-score is -2.5, Z- score is -0.1. Left hip femoral neck bone mineral density: 0.570gm/cm2, T-score is -2.5, Z-score is zero. Lumbar spine total bone mineral density:1.007gm/cm2, T-score is-0.4, Z-score is 2.5. Impression:1. Osteoporosis of the left hip, fracture risk is high2. Normal bone mineral density of the lumbar spine, fracture risk is not increased. Least significant change (LSC) for bone mineral density as provided by band reamer machine operator is 0.023 g/cm2 for lumbar spine and 0.027 g/cm2 for total hip. 10 -year fracture risk per WHO Fracture Risk Assessment Tool (FRAX) for:Not reported because some T-scores at or below -2.5 The patient's fracture risk is compared to an age-matched control. Medical eval uation for secondary causes of low bone bone mineral density may be appropriate. Correlate clinically for the necessity and timing of the next bone mineral density study. Signed: Mary Rameshepdanielle Verified Date/Time: 02/13/2022 13:13:55 Reading Location: [facility] Reading Room [address] [place] [address] VITAMIN D 25 [id number] 11:29:12 Test Item Value Reference Range Interpretation Comments VITAMIN D 25-HYDROXY SEE BELOW NG/ML NOT E: 25-HYDROXYVITAMIN D (test code = 1989-3) ASSAY I NCLUDES 25-HYDROXYVITAM IN D2 AND D3. METHODOLOGY IS CHEMILUMINESCEN T IMMUNOASSAY. $$ $$$ INTERPRETIVE RA NGES $$$$$PEDIATRIC (<17 YEARS) . . . . . . . . . . . NG/ML 20-100ADULT: IN SUFFICIENT . . . . . . . . . . . . . . NG/ML <20 SUBOP TIMAL . . . . . . . . . . . . . . . NG/ML 20-29 OPTIMAL . . . . . . . . . . . . . . . . . NG/ML 30-100 Unless O therwise Indicated, All Testing Performed At: Clinical Pathology [facility], [address] [place] [address] Laboratory Dire ctor: Rodney Davila M.D. CLIA Number [id number] [place]. [id number] [facility] HospitalLIPID [id number] 11:15:53 Test Item Value Reference Range Interpretation Comments CHOLESTEROL (test code See_Comment [Aut omated message] = 2093-3) The system [employer] generated this result transmitted ref erence range: <200 MG/ DL. The reference range was not used to int erpret this result as normal/abnormal . TRIGLYCERIDES (test See_Comment H [Automa pati message] code = 2571-8) The system [employer] [facility] generated this result transmitted ref erence range: <150 MG/ DL. The reference range was not used to int erpret this result as normal/abnormal . HDL CHOLESTEROL (test See_Comment [Auto mated message] code = 2085-9) The system wh ich generated this result transmitted ref erence range: >39 MG/D L. The reference range was not used to int erpret this result as normal/abnormal . LDL CHOLESTEROL See_Comment NOTE: CALCU LATED LDL CALCULATED (test code = IS B ASED ON ) HEMANT METHOD WHICHINCLUDES ADJUSTABLE TRIGLYCERIDE:VL DL CHOLESTEROL RAT IO.THIS FACTOR VARIES B Y MEASURED TRIGLY CERIDE AND NON-HDLCHOL ESTEROL CONCENTRATIONS WITH INCREASED CALCU LATED LDL SEENIN HIGH ER TRIGLYCERIDE OR LOWER NON-HDL SPECIME NS. FOR MOREINFORMATION , SEE CLIENT ANNOUNCE MENT AT [email or web address] [Aut omated message] The sy stem which generated this result transmit pati reference range : <100 MG/DL. The refe rence range was not u sed to interpret this result as normal/abnor mal. LDL/HDL RATIO (test See_Comment Unless Otherwise code = 64338-7) Indicated, A ll Testing Performed At: [address] [facility], [address] [place] [address] Laborator y Director: Arie BuenoIA Number [id number] [place]. [id number] [Autom ated message] The sy stem which generated this result transmit pati reference range : <3.22 RATIO. The refe rence range was not u sed to interpret this result as normal/abnor mal. Lab Interpretation Abnormal (test code = 74832-4) [facility] HospitalURIC [id number] 11:15:53 Test Item Value Reference Range Interpretation Comments URIC ACID (test code See_Comment Unless Otherwise = 3084-1) Indicated, All Testing Performed At: [address] [facility], [address] [place] [address] Laborator y Director: Rodney landry M.D. CLIA Number [id number] [place]. [id number] [Automated mess age] The system which ge nerated this result transmit pati reference range : 2.7 - 6.1 MG/DL. The refe rence range was not used to interpret this result as normal/abnormal . [facility] HospitalCOMPREHENSIVE METABOLIC [id number] 11:15:53 Test Item Value Reference Range Interpretation Comments GLUCOSE (test code = See_Comment H [Autom ated message] 2345-7) The system [employer] generated this result transmitted ref erence range: 70 - 99 MG/DL. The reference r nikky was not used to interpret this result as normal/abnor mal. BLOOD UREA NITROGEN See_Comment [Automa pati message] (test code = 3091-6) The sys tem which generated this result transmitted ref erence range: 8 - 23 M G/DL. The reference r nikky was not used to interpret this result as normal/abnor mal. CREATININE (test code = See_Comment [Au tomated message] 2160-0) The system [employer] generated this result transmitted ref erence range: 0.60 - 1 .30 MG/DL. The refe rence range was not u sed to interpret this result as normal/abnor mal. EGFR (test code = See_Comment [Automate d message] 00545-8) The system [employer] generated this result transmitted ref erence range: >60 ML/MIN/1.73. Th e reference range was not used to int erpret this result as normal/abnormal . BUN/CREAT RATIO (test See_Comment [Auto mated message] code = 3097-3) The system [facility] generated this result transmitted ref erence range: 6 - 28 R ATIO. The reference r nikky was not used to interpret this result as normal/abnor mal. SODIUM (test code = See_Comment [Automa pati message] 2951-2) The system [employer] generated this result transmitted ref erence range: 133 - 14 6 MEQ/L. The refe rence range was not u sed to interpret this result as normal/abnor mal. POTASSIUM (test code = See_Comment [Aut omated message] 2823-3) The system [employer] generated this result transmitted ref erence range: 3.5 - 5. 4 MEQ/L. The refe rence range was not u sed to interpret this result as normal/abnor mal. CHLORIDE (test code = See_Comment [Auto mated message] 2074-0) The system [employer] generated this result transmitted ref erence range: 95 - 107 MEQ/L. The reference r nikky was not used to interpret this result as normal/abnor mal. CO2 (test code = See_Comment [Automated message] 1962-8) The system [facility] generated this result transmitted ref erence range: 19 - 31 MEQ/L. The reference r nikky was not used to interpret this result as normal/abnor mal. CALCIUM (test code = See_Comment [Autom ated message] 75651-0) The system [employer] generated this result transmitted ref erence range: 8.5 - 10 .5 MG/DL. The refe rence range was not u sed to interpret this result as normal/abnor mal. PROTEIN TOTAL (test See_Comment [Automa pati message] code = 2885-2) The system [email or web address] generated this result transmitted ref erence range: 6.1 - 8. 3 G/DL. The reference r nikky was not used to interpret this result as normal/abnor mal. ALBUMIN (test code = See_Comment [Autom ated message] 84340-6) The system [employer] generated this result transmitted ref erence range: 3.5 - 5. 2 G/DL. The reference r nikky was not used to interpret this result as normal/abnor mal. GLOBULINS, SERUM, TOTAL See_Comment [Au tomated message] (test code = 26784-6) The sy stem which generated this result transmitted ref erence range: 1.9 - 3. 7 G/DL. The reference r nikky was not used to interpret this result as normal/abnor mal. A/G RATIO (test code = See_Comment [Aut omated message] 1759-0) The system [facility] [employer] generated this result transmitted ref erence range: 1.0 - 2. 6 RATIO. The refe rence range was not u sed to interpret this result as normal/abnor mal. BILIRUBIN TOTAL (test See_Comment [Auto mated message] code = 1975-2) The system [email or web address] generated this result transmitted ref erence range: <=1.2 MG /DL. The reference r nikky was not used to interpret this result as normal/abnor mal. ALKALINE PHOSPHATASE 110 U/L 40-142 (test code = 6768-6) AST (SGOT) (test code = 17 U/L 9-40 1920-8) ALT (SGPT) (test code = 16 U/L 5-40 Unl ess Otherwise 1744-2) Indicated, All Testing Performed At: [facility], [address] [place] [address] [facility] ry Director: Rodney Davila M.D. IA Number [id number] Cap Accreditation N o. [id number] Lab Interpretation Abnormal (test code = 80931-9) [facility] W/AUTO DIFF WITH [id number] 10:06:22 Test Item Value Reference Range Interpretation Comments WHITE BLOOD CELL COUNT See_Comment [Aut omated message] (test code = 90941-4) The sy stem which generated this result transmitted ref erence range: 3.5 - 11 .0 K/UL. The refer ence range was not u sed to interpret this result as normal/abnor mal. RED BLOOD CELL COUNT See_Comment [Autom ated message] (test code = 54149-3) The sy stem which generated this result transmitted ref erence range: 3.80 - 5 .40 M/UL. The refer ence range was not u sed to interpret this result as normal/abnor mal. HEMOGLOBIN (test code = See_Comment [Au tomated message] 718-7) The system whic h generated this result transmitted ref erence range: 11.5 - 1 5.5 G/DL. The refer ence range was not u sed to interpret this result as normal/abnor mal. HEMATOCRIT (test code = 41.5 % 34.0-45.0 10404-6) MEAN CORPUSCULAR VOLUME 88.1 fL 80.0-99.0 (test code = 47421-0) MEAN CORPUSCULAR 29.9 PG 25.0-33.0 HEMOGLOBIN (test code = 03019-5) MEAN CORPUSCULAR See_Comment [Automated message] HEMOGLOBIN CONC (test The sy stem which code = 03653-0) generated th is result transmitted ref erence range: 31.0 - 3 6.0 G/DL. The refer ence range was not u sed to interpret this result as normal/abnor mal. RED CELL DISTRIBUTION 14.3 % 11.5-15.0 WIDTH (test code = 75454-8) NEUTROPHILS % (test code 66.7 % = 94444-5) LYMPHOCYTES % (test code 24.2 % = 31438-8) MONOCYTES % (test code = 7.2 % 22098-0) EOSINOPHILS % (test code 0.7 % = 40542-5) BASOPHILS % (test code = 0.7 % 54231-6) IMMATURE GRANULOCYTES 0.5 % (test code = 36250-0) NUCLEATED RBC'S See_Comment Unless Othe rwise MYELOPEROX STAIN (test Indic ated, All Testing code = 96016-8) Performed At : [facility], [address] [place] [id number] [facility] y Director: Rodney Davila M.D. CLIA Number [id number] Cap Accreditation N o. [id number] [Autom ated message] The sy stem which generated this result transmit pati reference range : 0.00 - 0.11 K/UL. Th e reference range was not used to int erpret this result as normal/abnormal . PLATELET COUNT (test See_Comment [Autom ated message] code = 39515-6) The system w [employer] generated this result transmitted ref erence range: 130 - 40 0 K/UL. The reference r nikky was not used to interpret this result as normal/abnor mal. NEUTROPHILS ABSOLUTE See_Comment [Autom ated message] COUNT (test code = The syste m which 71083-7) generated this result transmitted ref erence range: 1.50 - 7 .50 K/UL. The refer ence range was not u sed to interpret this result as normal/abnor mal. LYMPHOCYTES ABSOLUTE See_Comment [Autom ated message] COUNT (test code = The syste m which 17308-1) generated this result transmitted ref erence range: 1.00 - 4 .00 K/UL. The refer ence range was not u sed to interpret this result as normal/abnor mal. MONOCYTES ABSOLUTE COUNT See_Comment [A utomated message] (test code = 05350-5) The sy stem which generated this result transmitted ref erence range: 0.20 - 1 .00 K/UL. The refer ence range was not u sed to interpret this result as normal/abnor mal. BASOPHILS ABSOLUTE COUNT See_Comment [A utomated message] (test code = 49456-4) The sy stem which generated this result transmitted ref erence range: 0.00 - 0 .20 K/UL. The refer ence range was not u sed to interpret this result as normal/abnor mal. IMMATURE GRANS (ABS) See_Comment [Autom ated message] (test code = 9987) The syste m which generated this result transmitted ref erence range: 0.00 - 0 .10 K/UL. The refer ence range was not u sed to interpret this result as normal/abnor mal. [facility] [id number] 17:46:00 Test Item Value Reference Range Interpretation Comments THYROID STIMULATING HORMONE 2.040 uIU/mL 0.350-4.940 (BEAKER) (test code = 772) Occupational Therapist Home Based ID - BSLIPID [id number] 17:28:00 Test Item Value Reference Range Interpretation Comments TRIGLYCERIDES (BEAKER) (test code = 162 mg/dL 540) CHOLESTEROL (BEAKER) (test code = 167 mg/dL 631) HDL CHOLESTEROL (BEAKER) (test code 44 mg/dL = 976) LDL CHOLESTEROL CALCULATED (BEAKER) 91 mg/dL (test code = 633) Triglyceride Reference Range: Low Risk <150 Borderline 150-199 High Risk 200- 499 Very High Risk >=500Cholesterol Reference Range: Low Risk <200 Borderline 200-239 High Risk >240HDL Cholesterol Reference Range: Low Risk >=60 High Risk <40LDL Cholesterol Reference Range: Optimal <100 Near Optimal 100-129 Borderline 130-159 High 160-189 Very High >=190 Occupational Therapist Home Based ID - BSCOMPREHENSIVE METABOLIC [id number] 17:28:00 Test Item Value Reference Range Interpretation [...] S NOT APPLICABLE FOR DIALYSIS PATIEN TS. Occupational Therapist Home Based ID - BSCBC W/PLT COUNT & AUTO [id number] 16:47:00 Test Item Value Reference Range Interpretation [...] PERCENT (BEAKER) (test code = 2801) URIC [id number] 14:41:00 Test Item Value Reference Range Interpretation Comments URIC ACID (BEAKER) (test code = 5.5 mg/dL 2.6-7.2 773) COMPREHENSIVE METABOLIC [id number] 14:41:00 Test Item Value Reference Range Interpretation [...] S NOT APPLICABLE FOR DIALYSIS PATIEN TS. [id number] 12:34:00 Test Item Value Reference Range Interpretation Comments THYROID STIMULATING HORMONE 1.38 uIU/mL 0.35-4.94 (BEAKER) (test code = 772) VITAMIN [id number] 12:34:00 Test Item Value Reference Range Interpretation Comments VITAMIN B12 (BEAKER) (test code = 1882 pg/mL 213-816 H 774) BASIC METABOLIC [id number] 12:04:00 Test Item Value Reference Range Interpretation [...] NOT APPLICABLE FOR DIALYSIS PATIEN TS. VITAMIN [id number] 14:07:00 Test Item Value Reference Range Interpretation Comments VITAMIN B12 (BEAKER) (test code = 1427 pg/mL 213-816 H 774) VITAMIN D, [id number] 14:07:00 Test Item Value Reference Range Interpretation Comments VITAMIN D 25-OH (BEAKER) (test 51.2 ng/mL 6.6-49.9 H code = 2764) Effective 05/08/2017: Reference Range ChangeNew: 6.6-49.9 ng/mL Previous: 13.0- 47.8 ng/mLRecommendedVitamin D Target Range: 30.0-40.0 ng/mLCOMPREHENSIVE METABOLIC [id number] 13:40:00 Test Item Value Reference Range Interpretation [...] PATIEN TS. CBC W/PLT COUNT & AUTO [id number] 13:02:00 Test Item Value Reference Range Interpretation [...]
[2022-12-26 10:14] LABS: Urine Bacteria None Seen /HPF (<20); Urine Bilirubin NEGATIVE (Negative); Urine Blood Negative (Negative); Urine Clarity Turbid (Clear); Urine Color Yellow (Yellow); Urine Glucose NEGATIVE (Negative); Urine Mucus Slight /HPF (None Seen); Urine Protein 1+ (Negative); Urine Urobilinogen Normal (Normal); Urine pH 5.5 (5.0-7.0)
--- NOTE | 2022-12-26 11:30 | RAD REPORT ---
EXAM DESCRIPTION: CT - Abdomen Pelvis Wo Contrast - 12/26/2022 11:18 am CLINICAL HISTORY: Abdominal pain COMPARISON: None TECHNIQUE: Computed axial tomography of the abdomen and pelvis was obtained. IV and oral contrast we re not requested. All CT scans are performed using dose optimization technique as appropriate and may include automated exposure control or mA/KV adjustment according to patient size. FINDINGS: The evaluation of solid organs, vessels and bowel is limited secondary to the lack of con trast administration. A moderate hiatal hernia The liver, spleen, pancreas, adrenals and kidneys appear grossly normal. Several calcified splenic arterial aneurysms. Largest measures 11 millimeters. No evidence of diverticulitis. Hysterectomy. No adnexal mass Moderate lumbar spondylosis. Small umbilical hernia IMPRESSION: No acute abnormality is displayed.
[2022-12-26 12:32] LABS: Albumin 3.4 g/dL (3.4-5.0); Bilirubin Total 0.4 mg/dL (0.2-1.0); Potassium 3.9 mEq/L (3.5-5.1); Protein, Total 7.1 g/dL (6.4-8.2)
--- NOTE | 2022-12-26 15:30 | RAD REPORT ---
EXAM DESCRIPTION: CT - Head Brain Wo Cont - 12/26/2022 2:50 pm CLINICAL HISTORY: WEAKNESS COMPARISON: Head Brain Wo Cont dated 10/30/2017; Ct Stroke Brain Wo Cont dated 09/12/2016 TECHNIQUE: Noncontrast head CT images ad were obtained without IV contrast. Multiplanar reformats we re generated and reviewed. All CT scans are performed using dose optimization technique as appropriate and may include automated exposure control or mA/KV adjustment according to patient size. FINDINGS: No intracranial hemorrhage, mass, or edema. Midline structures are unremarkable. Stable mild diffuse parenchymal volume loss. Stable burden of nonspecific patchy periventricular and deep white matter hypodensities, most suggest geoff of chronic small vessel ischemic changes. Cruz-white matter differentiation is preserved, without evidence of acute infarct. No abnormal extra- axial fluid collections. Mastoid air cells and visualized portions of the paranasal sinuses are clear. No acute bony findings. IMPRESSION: No evidence of an acute intracranial process. Stable findings as above.
[2022-12-26 15:47] LABS: Absolute Lymphocytes (CBC) 0.8 K/uL (0.7-4.9); Hematocrit 46.3 % (36.0-45.0); Lymphocytes % 7.7 % (15.3-44.8); MPV 10.6 fL (7.6-11.3); RBC Red Blood Cell Count 5.03 M/uL (3.86-4.86)
--- NOTE | 2022-12-26 16:18 | ER ---
Nurse's Notes [facility] Name: Josey Briscoe Age: 87 yrs Sex: Female : 1935 Arrival Date: 12/26/2022 Time: 08:54 Bed 18 Private MD: Diagnosis: Weakness;Diarrhea, unspecified Presentation: 12/26 08:50 Chief complaint: EMS states: spouse was assisting pt into the shower and stated was vg1 feeling 'weak', stated pt slipped from centrifugal spinner, denies LOC, blood thinners or hitting head. BGL 162. Spouse stated has been becoming weaker over the past couple of days. 08:50 Coronavirus screen: Vaccine status: Patient reports receiving the 2nd dose of the covid vg1 vaccine. Ebola Screen: Patient negative for fever greater than or equal to 101.5 degrees Fahrenheit, and additional compatible Ebola Virus Disease symptoms Patient denies exposure to infectious person. Patient denies travel to an Ebola-affected area in the 21 days before illness onset. Initial Sepsis Screen: Does the patient meet any 2 criteria? No. Patient's initial sepsis screen is negative. Does the patient have a suspected source of infection? No. Patient's initial sepsis screen is negative. Risk Assessment: Do you want to hurt yourself or someone else? Patient reports no desire to harm self or others. Onset of symptoms was December 23, 2022. 08:50 Method Of Arrival: EMS: [facility] 08:50 Acuity: EMILIE 3 vg1 08:50 Care prior to arrival: IV initiated. 20 GA, in the right hand. vg1 Triage Assessment: 08:50 General: Appears in no apparent distress. uncomfortable, Behavior is calm, cooperative. vg1 Pain: Denies pain. Neuro: Level of Consciousness is awake, alert, obeys commands, Oriented to person, place. Cardiovascular: Patient's skin is warm and dry. Respiratory: Airway is patent Respiratory effort is even, unlabored. GI: Abdomen is flat, Abd is soft and non tender X 4 quads. : No signs and/or symptoms were reported regarding the genitourinary system. Derm: Skin is pink, warm \T\ dry. Musculoskeletal: Circulation, motion, and sensation intact. Historical: - Allergies: 08:50 No Known Allergies; vg1 - PMHx: 08:50 Alzheimer's disease; CVA; Dementia; Gout; Hyperlipidemia; Hypertensive disorder; vg1 - PSHx: 08:50 hysterectomy; vg1 - Immunization history:: Client reports receiving the 2nd dose of the Covid vaccine. - Social history:: Smoking status: Patient denies any tobacco usage or history of. Screenin:50 [facility] ED Fall Risk Assessment (Adult) History of falling in the last 3 months, vg1 including since admission Yes- single mechanical fall (1 pt) Confusion or Disorientation No (0 pts) Intoxicated or Sedated No (0 pts) Impaired Gait Yes (1 pt) Mobility Assist Device Used Yes (1 pt) Altered Elimination Yes (1 pt) Score/Fall Risk Level 3 or more points = High Risk Oriented to surroundings, Maintained a safe environment, Educated pt \T\ family on fall prevention, incl call for assistance when getting out of bed, Assessed \T\ reinforced patient's understanding of fall precautions, Provided non-skid footwear, Used ambulatory aids as needed (educated on \T\ assisted with), Implemented a Fall Risk Plan of Care, Utilized family, sitter, or virtual reverberatory furnace operator as indicated. Abuse screen: Denies threats or abuse. Denies injuries from another. Nutritional screening: No deficits noted. Tuberculosis screening: No symptoms or risk factors identified. Assessment: 08:50 Reassessment: SEE TRIAGE. vg1 10:27 Reassessment: Patient appears in no apparent distress at this time. No changes from vg1 previously documented assessment. Patient and/or family updated on plan of care and expected duration. Pain level reassessed. Patient is alert, oriented x 3, equal unlabored respirations, skin warm/dry/pink. INSIDE LAB CALLED TO ASSIST WITH BLOOD. 10:30 Reassessment: Patient appears in no apparent distress at this time. No changes from vg1 previously documented assessment. Patient and/or family updated on plan of care and expected duration. Pain level reassessed. Pt resting with eyes closed, spouse at bedside. 11:30 Reassessment: Patient appears in no apparent distress at this time. Patient and/or vg1 family updated on plan of care and expected duration. Pain level reassessed. Pt awake and alert, spouse at bedside. 11:39 Reassessment: INSIDE LAB AT BEDSIDE. Reassessment:. vg1 13:02 Reassessment: INSIDE LAB CALLED TO ASSIST. vg1 13:03 Reassessment: Patient appears in no apparent distress at this time. No changes from vg1 previously documented assessment. pt resting with eyes closed, spouse at bedside. 13:18 Reassessment: INSIDE LAB CALLED FOR RECOLLECT. vg1 13:43 Reassessment: LAB AT BEDSIDE. vg1 15:00 Reassessment: Patient appears in no apparent distress at this time. No changes from vg1 previously documented assessment. Patient and/or family updated on plan of care and expected duration. Pain level reassessed. pt awake and alert, spouse at bedside; pt linen and brief changed. Pt had diarrhea, spouse stated pt had diarrhea for 2-3 days; provider notified. 15:28 Reassessment: lab at bedside. vg1 16:37 Reassessment: Patient appears in no apparent distress at this time. Patient is alert, vg1 oriented x 3, equal unlabored respirations, skin warm/dry/pink. pt awake and alert, denies pain, spouse at bedside. 17:19 Reassessment: Received VO from Admitting REEL AND REWINDER OPERATOR for SARS rapid. vg1 18:15 Reassessment: Patient appears in no apparent distress at this time. pt resting with vg1 eyes closed. 20:56 GI: pt incontinent x 2 large amount of yellow liquid stool hyperactive bowel sounds. kl Vital Signs: 08:50 BP 108 / 59; Pulse 88; Resp 18; Temp 98.7(O); Pulse Ox 98% on R/A; Weight 63.5 kg; Pain vg1 0/10; 09:00 BP 106 / 65; Pulse 86; Resp 17; Pulse Ox 96% on R/A; vg1 12:30 BP 114 / 75; Pulse 90; Resp 20; Pulse Ox 96% on R/A; vg1 13:30 BP 112 / 81; Pulse 99; Resp 18; Pulse Ox 96% on R/A; vg1 14:15 BP 126 / 77; Pulse 100; Resp 20; Pulse Ox 96% on R/A; vg1 15:15 BP 118 / 65; Pulse 105; Resp 20; Temp 100.2; Pulse Ox 96% on R/A; vg1 15:45 BP 130 / 63; Pulse 110; Resp 22; Pulse Ox 95% on R/A; vg1 16:30 BP 107 / 79; Pulse 105; Resp 22; Pulse Ox 95% on R/A; vg1 17:15 BP 106 / 69; Pulse 96; Resp 22; Pulse Ox 95% on R/A; vg1 18:45 BP 107 / 59; Pulse 103; Resp 24; Pulse Ox 95% on R/A; vg1 20:33 BP 101 / 74; Pulse 95; Resp 18; Temp 97.2(TE); Pulse Ox 100% on R/A; kl 08:50 Pain Scale: Adult vg1 ED Course: 08:50 Arm band placed on. vg1 08:50 Patient has correct armband on for positive identification. Placed in gown. Bed in low vg1 position. Call light in reach. Side rails up X2. Adult w/ patient. Client placed on continuous cardiac and pulse oximetry monitoring. NIBP monitoring applied. 08:59 Patient arrived in ED. vg1 09:00 Sherlyn Carmona FNP-C is PHCP. kb 09:00 Jon Ortiz MD is Attending Physician. kb 09:03 Triage completed. vg1 09:15 linen and brief changed. vg1 09:35 Straight cath inserted, using sterile technique, 16 Fr. Specimen obtained. Returned vg1 cloudy urine. Patient tolerated well. 09:46 Felecia Styles, RN is Primary Nurse. vg1 11:19 Abdomen In Process Unspecified. EDMS 14:51 CT Head Brain wo Cont In Process Unspecified. EDMS 15:20 Notified Nurse Practitioner and/or Physician Negative Restorer of vital signs. vg1 16:17 Jon Ortiz MD is Hospitalizing Provider. kb 16:17 Yuli Hassan MD is Hospitalizing Provider. kb 20:34 Patient admitted, IV remains in place. kl 20:34 No provider procedures requiring assistance completed. kl Administered Medications: 16:30 Drug: NS 0.9% IV 500 ml Volume: 500 ml; Route: IV; Rate: 1 bolus; Site: right wrist; vg1 16:36 Drug: Acetaminophen PO 650 mg Route: PO; vg1 17:00 Drug: Rocephin IV 1 grams Route: IV; Rate: calculated rate; Site: right wrist; vg1 Medication: 20:34 VIS not applicable for this client. kl Outcome: 16:17 Decision to Hospitalize by Provider. kb 20:33 Admitted to Med/surg via stretcher, room 212, Report called to shelby kl 20:33 Condition: stable 20:33 Discharge instructions given to family, Instructed on the need for admit, Demonstrated understanding of instructions. 21:00 Patient left the ED. liz9 Signatures: Dispatcher [employer] EDSherlyn Odell, LEILA HARRISONP-Polina Garcia, RN Felecia Post RN RN vg1 Radha Larson RN RN mb9 Corrections: (The following items were deleted from the chart) 15:17 15:00 Reassessment: Patient appears in no apparent distress at this time. No changes vg1 from previously documented assessment. Patient and/or family updated on plan of care and expected duration. Pain level reassessed. pt awake and alert, spouse at bedside; pt linen and brief changed. vg1
--- NOTE | 2022-12-26 16:18 | EDPHYS ---
Physician Documentation [facility] Name: Josey Briscoe Age: 87 yrs Sex: Female : 1935 Arrival Date: 12/26/2022 Time: 08:54 Bed 18 Private MD: ED Physician Jon Ortiz HPI: 12/26 16:47 This 87 yrs old Female presents to ER via EMS with complaints of General Weakness. kb 16:47 The patient presents with generalized weakness. Onset: The symptoms/episode kb began/occurred 3 day(s) ago. Context: occurred at home, occurred while the patient was walking. Modifying factors: The symptoms are alleviated by nothing, the symptoms are aggravated by nothing. Associated signs and symptoms: Pertinent positives: diarrhea. Severity of symptoms: At their worst the symptoms were moderate in the emergency department the symptoms are unchanged. Patient's baseline: Neuro: alert and fully oriented, Motor: no deficits, Ambulation: walks without assistance, Speech: normal. The patient has not experienced similar symptoms in the past. The patient has not recently seen a physician. reports pt has had weakness that has been getting worse over the last 3 days. States she has fallen twice and this last time he was unable to get her up so he called 911. Reports pt has had diarrhea for 3 days as well. . Historical: - Allergies: 08:50 No Known Allergies; vg1 - PMHx: 08:50 Alzheimer's disease; CVA; Dementia; Gout; Hyperlipidemia; Hypertensive disorder; vg1 - PSHx: 08:50 hysterectomy; vg1 - Immunization history:: Client reports receiving the 2nd dose of the Covid vaccine. - Social history:: Smoking status: Patient denies any tobacco usage or history of. ROS: 16:43 Constitutional: Negative for fever, chills, and weight loss. kb 16:43 Abdomen/GI: Positive for diarrhea, Negative for abdominal pain, nausea and vomiting. 16:43 Neuro: Positive for weakness. 16:43 All other systems are negative. Exam: 16:49 Constitutional: This is a well developed, well nourished patient who is awake, alert, kb and in no acute distress. Head/Face: Normocephalic, atraumatic. ENT: Moist Mucous membranes Cardiovascular: Regular rate and rhythm with a normal S1 and S2. No gallops, murmurs, or rubs. No pulse deficits. Respiratory: Respirations even and unlabored. No increased work of breathing. Talking in full sentences Abdomen/GI: Soft, non-tender. No distention Skin: Warm, dry with normal turgor. Normal color. MS/ Extremity: Pulses equal, no cyanosis. Neurovascular intact. Full, normal range of motion. Neuro: Awake and alert, GCS 15, oriented to person, place, time, and situation. Moves all extremities. Normal gait. Vital Signs: 08:50 BP 108 / 59; Pulse 88; Resp 18; Temp 98.7(O); Pulse Ox 98% on R/A; Weight 63.5 kg; Pain vg1 0/10; 09:00 BP 106 / 65; Pulse 86; Resp 17; Pulse Ox 96% on R/A; vg1 12:30 BP 114 / 75; Pulse 90; Resp 20; Pulse Ox 96% on R/A; vg1 13:30 BP 112 / 81; Pulse 99; Resp 18; Pulse Ox 96% on R/A; vg1 14:15 BP 126 / 77; Pulse 100; Resp 20; Pulse Ox 96% on R/A; vg1 15:15 BP 118 / 65; Pulse 105; Resp 20; Temp 100.2; Pulse Ox 96% on R/A; vg1 15:45 BP 130 / 63; Pulse 110; Resp 22; Pulse Ox 95% on R/A; vg1 16:30 BP 107 / 79; Pulse 105; Resp 22; Pulse Ox 95% on R/A; vg1 17:15 BP 106 / 69; Pulse 96; Resp 22; Pulse Ox 95% on R/A; vg1 18:45 BP 107 / 59; Pulse 103; Resp 24; Pulse Ox 95% on R/A; vg1 20:33 BP 101 / 74; Pulse 95; Resp 18; Temp 97.2(TE); Pulse Ox 100% on R/A; kl 08:50 Pain Scale: Adult vg1 MDM: 09:00 Patient medically screened. kb 14:22 ED course: still awaiting CBC. kb 16:41 Differential diagnosis: viral Infection, bacterial infection, UTI, sepsis. Data kb reviewed: vital signs, nurses notes. Consideration of Admission/Observation Patient was admitted/placed on observation. Management of patient was discussed with the following: Hospitalist: SOLOMON Gleason accepts pt for admission under Dr Hassan. Dr Ortiz. Historians other than the Patient: EMS: [facility]. Spouse/Significant Other: . Counseling: I had a detailed discussion with the patient and/or guardian regarding: the historical points, exam findings, and any diagnostic results supporting the discharge/admit diagnosis, lab results, radiology results, the need for further work-up and treatment in the hospital. 12/26 09:06 Order name: CBC with Diff; Complete Time: 16:13 kb 12/26 09:06 Order name: CMP; Complete Time: 12:38 kb 12/26 09:06 Order name: Lipase; Complete Time: 12:38 kb 12/26 09:06 Order name: Urinalysis w/ reflexes; Complete Time: 10:15 kb 12/26 15:03 Order name: C.difficile 12/26 15:03 Order name: Stool Culture 12/26 15:21 Order name: Blood Culture Adult (2) 12/26 15:21 Order name: Lactate w/ 2H reflex if indic.; Complete Time: 16:11 kb 12/26 17:02 Order name: Magnesium [facility] 12/26 17:02 Order name: Phosphorus [facility] 12/26 17:02 Order name: T4 Free [facility] 12/26 17:02 Order name: Thyroid Stimulating Hormone [facility] 12/26 17:02 Order name: Urinalysis w/ reflexes [facility] 12/26 17:02 Order name: CBC with Automated Diff [facility] 12/26 17:02 Order name: CBC with Automated Diff [facility] 12/26 17:02 Order name: Comprehensive Metabolic Panel [facility] 12/26 17:02 Order name: Comprehensive Metabolic Panel [facility] 12/26 17:04 Order name: NT PRO-BNP [facility] 12/26 17:18 Order name: COVID-[address] [facility] 12/26 17:18 Order name: SARS RAPID; Complete Time: 17:48 [facility] 12/26 19:09 Order name: Lactate Sepsis 2 HR Follow-up [facility] 12/26 10:58 Order name: Abdomen ; Complete Time: 11:37 [facility] 12/26 14:37 Order name: CT Head Brain wo Cont; Complete Time: 15:42 kb 12/26 17:02 Order name: Heart Healthy [facility] 12/26 17:31 Order name: Physical Therapy Consult [facility] 12/26 09:06 Order name: IV Saline Lock; Complete Time: 09:46 kb 12/26 09:06 Order name: Labs collected and sent; Complete Time: 11:57 kb 12/26 12:45 Order name: Labs - recollect needed: recollect lavender top; Complete Time: 13:52 bd Administered Medications: 16:30 Drug: NS 0.9% IV 500 ml Volume: 500 ml; Route: IV; Rate: 1 bolus; Site: right wrist; vg1 16:36 Drug: Acetaminophen PO 650 mg Route: PO; vg1 17:00 Drug: Rocephin IV 1 grams Route: IV; Rate: calculated rate; Site: right wrist; vg1 Disposition: 12/27 07:25 Co-signature as Attending Physician, Jon Ortiz MD I reviewed the patient's care rn provided by the Advanced Practice Provider and agree with the diagnosis and treatment plan. Disposition Summary: 12/26/22 16:17 Hospitalization Ordered Hospitalization Status: Inpatient Admission kb Provider: Yuli Hassan Location: Telemetry/[facility] (Inpatient) kb Condition: Stable kb Problem: new kb Symptoms: are unchanged kb Bed/Room Type: Standard Room Assignment: [facility] [place] 2](12/26/22 18:40) dw Diagnosis - Weakness kb - Diarrhea, unspecified kb Forms: - Medication Reconciliation Form kb - SBAR form kb Signatures: Dispatcher [employer] EDSherlyn Odell, STABLE MANAGER-C STABLE MANAGER-Ckb Dorothea Delarosa Diana RN RN Jon Cota MD MD rn Garcia, Victoria RN RN vg1 Corrections: (The following items were deleted from the chart) 12/26 10:58 09:07 Abdomen Pelvis W Con+CT.RAD.BRZ ordered. [facility] 18:40 16:17 kb dw
[2022-12-26] MEDS ORDERED: NA CHLORIDE 0.9% 500 ML ONE (16:33)
[2022-12-26] MEDS ORDERED: ACETAMINOPHEN 325 MG TABLET ONE (16:34)
[2022-12-26] MEDS ORDERED: ACETAMINOPHEN 325 MG TABLET PO PRN (16:56)
[2022-12-26] MEDS ORDERED: TRAMADOL HCL 50 MG TAB PO PRN (16:56)
[2022-12-26] MEDS ORDERED: ONDANSETRON 4 MG/2 ML VIAL IV PRN (16:59)
[2022-12-26] MEDS ORDERED: CEFTRIAXONE 1000 MG/VIAL ONE (16:59)
--- NOTE | 2022-12-26 17:04 | P.HP ---
Certification for Inpatient Patient admitted to: Inpatient With expected LOS: >2 Midnights Patient will require the following post-hospital care: None Practitioner: I am a practitioner with admitting privileges, knowledge of patient current condition, hospital course, and medical plan of care. Services: Services provided to patient in accordance with Admission requirements found in Title 42 Section 412.3 of the Code of Federal Regulations Patient History Date of Service: 12/26/22 Reason for admission: Generalized weakness History of Present Illness: Patient is an 87-year-old female with a past medical history significant for CVA, GERD, HLD, hypertension, Alzheimer's disease who presents with complaint of generalized weakness onset yesterday. Patient's spouse reported that patient started having diarrhea 2 days ago and spouse gave him Imodium yesterday but patient continued having diarrhea. Patient is alert and oriented x1. Patient is confused. Patient unable to provide any accurate history. Patient's spouse reported that patient was unable to walk this morning due to weakness and fatigue. Patient denies any other signs and symptoms. Symptoms are aggravated or relieved by nothing. Patient was brought to the hospital for medical evaluation. Of note, patient was exposed to a family member who was recently diagnosed with COVID-19 infection. Also patient has had poor p.o. intake in the last couple days. Allergies No Known Allergies Allergy (Verified 09/13/16 09:07) Home Medications: Simvastatin [Zocor*] 1 tab PO BEDTIME 09/19/15 allopurinoL [Zyloprim*] 300 mg PO DAILY 09/19/15 Aspirin 325 mg PO DAILY 09/13/16 Cholecalciferol (Vitamin D3) [Vitamin D3] 1,000 unit PO DAILY 10/30/22 Cyanocobalamin (Vitamin B-12) [Vitamin B12] 2,500 mcg PO DAILY 10/30/22 Memantine HCl/Donepezil HCl [Namzaric 28 mg-10 mg Capsule] 1 cap PO DAILY 10/30/22 Cefdinir [Cefdinir*] 300 mg PO BID #14 cap 10/31/22 Guaifen W/Codeine Syrup [ROBITUSSIN A-C Syrup*] 10 ml PO BIDP PRN #100 ml 10/31/22 predniSONE [Deltasone] 20 mg PO DAILY #5 tab 10/31/22 - Past Medical/Surgical History Diabetic: No -: High cholesterol -: CVA -: Gout -: HTN -: orthostatic hypotension -: Hyst -: Tonsilectomy - Family History Father -: Cancer Mother Notes: alzheimers Sister -: Diabetes, Kidney disease - Social History Smoking Status: Never smoker Alcohol use: No CD- Drugs: No Caffeine use: Yes Place of Residence: Home Review of Systems is unable to be obtained (Patient is confused.) Physical Examination - Physical Exam General: Alert, In no apparent distress, Oriented x1, Confused HEENT: Atraumatic, PERRLA, Mucous membr. moist/pink, EOMI, Sclerae nonicteric Neck: Supple, 2+ carotid pulse no bruit, No LAD, Without JVD or thyroid abnormality Respiratory: Diminished Cardiovascular: No edema, Regular rate/rhythm, Normal S1 S2 Capillary refill: <2 Seconds Gastrointestinal: Normal bowel sounds, Non-distended, No tenderness Musculoskeletal: No clubbing, No swelling, No tenderness Integumentary: No rashes, No breakdown, No significant lesion Neurological: Normal speech, Normal tone, Normal affect Lymphatics: No axilla or inguinal lymphadenopathy - Studies Laboratory Data (last 24 hrs) 12/26/22 15:33: WBC 10.90, Hgb 15.1 H, Hct 46.3 H, Plt Count 148 L 12/26/22 11:53: Sodium 138, Potassium 3.9, BUN 20 H, Creatinine 1.05 H, Glucose 114 H, Total Bilirubin 0.4, AST 16, ALT 24, Alkaline Phosphatase 115, Lipase 31 Assessment and Plan - Plan -- Generalized weakness. Likely secondary to diarrhea. PT eval and treat. -- Diarrhea. Stool studies pending to rule out any infectious process. CT abdomen does not indicate any acute findings. Continue IV hydration. -- History of CVA. Continue aspirin and statin. --GERD. Continue Protonix. --Hyperlipidemia. Continue statin. --Hypertension. Stable. We will manage BP with hydralazine as needed. --Alzheimer's dementia. Patient noted to be confused. Spouse reported that patient is slightly more confused than normal. Continue home medication. --Gout. Continue allopurinol. --GLYNN on CKD 2. Likely prerenal secondary to poor p.o. intake and fluid losses. Continue IV hydration. We will continue to monitor renal functions. --DVT prophylaxis with Lovenox subQ. Discharge Plan: Home Plan to discharge in: Greater than 2 days - Advance Directives Does patient have a Living Will: No Does patient have a Durable POA for Healthcare: No - Code Status/Comfort Care Code Status Assessed: Yes Physician Review: Patient Assessed, Agree with Above Assessment and Plan Critical Care: No
[2022-12-26] MEDS ORDERED: SODIUM CHLORIDE 0.9% 10ML INJ IV PRN (17:31)
[2022-12-26] MEDS ORDERED: HYDRALAZINE HCL 20 MG/ML VIAL IV PRN (17:32)
[2022-12-26 17:41] LABS: SARS-CoV-2 Antigen Rapid Res Negative (Negative)
[2022-12-26 23:03] VITALS: BMI 20.6
[2022-12-26] MEDS: ENOXAPARIN 40 MG/0.4 ML SQ SCH (23:20)
[2022-12-26] MEDS: NA CHLORIDE 0.9% 1,000 ML IV SCH (23:21)
[2022-12-26] MEDS: PANTOPRAZOLE 40 MG INJ IVP SCH (23:27)
[2022-12-26 23:50] LABS: Magnesium 2.4 mg/dL (1.6-2.4); Thyroid Stimulating Hormone 1.74 uIU/mL (0.358-3.740)
[2022-12-27 05:36] LABS: C.diff Antigen/Toxin Ag neg : Tox neg (NEG : NEG)
[2022-12-27 05:48] LABS: Absolute Lymphocytes (CBC) 1.4 K/uL (0.7-4.9); Lymphocytes % 17.7 % (15.3-44.8); MPV 11.8 fL (7.6-11.3); RBC Red Blood Cell Count 4.78 M/uL (3.86-4.86)
[2022-12-27 06:14] LABS: Albumin 2.8 g/dL (3.4-5.0); Bilirubin Total 0.3 mg/dL (0.2-1.0); Potassium 3.7 mEq/L (3.5-5.1); Protein, Total 6.2 g/dL (6.4-8.2)
[2022-12-27] MEDS ORDERED: POTASSIUM CL SA 10 MEQ TAB PO ONE (09:00)
[2022-12-27] MEDS: ASPIRIN 81 MG CHEWABLE TABLET PO SCH (09:49)
[2022-12-27] MEDS: ENOXAPARIN 40 MG/0.4 ML SQ SCH (09:50)
[2022-12-27] MEDS: NA CHLORIDE 0.9% 1,000 ML IV SCH (09:50)
[2022-12-27] MEDS: PANTOPRAZOLE 40 MG INJ IVP SCH (10:01)
--- NOTE | 2022-12-27 13:43 | P.PN ---
Date of Service: 12/27/22 Subjective Patient is doing much better according to the . He wants to try to get her home with home health over the next few days. Advancing diet and continue with physical therapy. Physical Examination - Physical Exam General: Alert, In no apparent distress, Oriented x1, Confused Respiratory: Diminished Cardiovascular: No edema, Regular rate/rhythm, Normal S1 S2 Gastrointestinal: Normal bowel sounds, Non-distended, No tenderness Musculoskeletal: No clubbing, No swelling, No tenderness Integumentary: No rashes, No breakdown, No significant lesion Neurological: Normal speech, Normal tone, Normal affect Assessment and Plan - Assessment/Plan -- Generalized weakness. Secondary to diarrhea and dehydration. PT eval and treat appreciated. -- Diarrhea. Stool studies negative as is the CT abdomen; IVFs -- History of CVA. Continue aspirin and statin. -- GERD. Continue Protonix. -- Hyperlipidemia. Continue statin. -- Hypertension. Stable. We will manage BP with hydralazine as needed. -- Alzheimer's dementia. Patient noted to be confused. Spouse reported that patient is slightly more confused than normal. Continue home medication. -- Gout. Continue allopurinol. -- GLYNN on CKD 2. Prerenal azotemia secondary to poor p.o. intake and fluid losses. Continue with IV hydration and monitor renal functions. -- DVT prophylaxis with Lovenox subQ. Discharge Plan: Home Plan to discharge in: Greater than 2 days - Advance Directives Does patient have a Living Will: No Does patient have a Durable POA for Healthcare: No - Code Status/Comfort Care Code Status Assessed: Yes Physician Review: Patient Assessed, Agree with Above Assessment and Plan Critical Care: No
[2022-12-28] MEDS: NA CHLORIDE 0.9% 1,000 ML IV SCH ×3 (00:04→23:20)
[2022-12-28 03:09] LABS: Potassium 3.9 mEq/L (3.5-5.1)
[2022-12-28] MEDS: ASPIRIN 81 MG CHEWABLE TABLET PO SCH (09:49)
[2022-12-28] MEDS: PANTOPRAZOLE 40 MG INJ IVP SCH (09:50)
[2022-12-28] MEDS: ENOXAPARIN 40 MG/0.4 ML SQ SCH (09:50)
--- NOTE | 2022-12-28 14:09 | P.PN ---
Subjective Date of Service: 12/28/22 Chief Complaint: Generalized weakness Subjective: No new changes, Improving Physical Examination - Vital Signs Temperature: 97.0 F Blood Pressure: 131/69 Pulse: 67 Respirations: 20 Pulse Ox (%): 94 - Physical Exam General: Oriented x3 HEENT: Atraumatic, Normocephalic Neck: Supple Respiratory: Normal air movement Gastrointestinal: Soft and benign Musculoskeletal: No swelling Neurological: Normal speech - Studies Microbiology Data (last 24 hrs): 12/26/22 15:37 Blood - Blood Anaerobic Blood Culture - Final 12/26/22 15:30 Blood - Blood Anaerobic Blood Culture - Final Assessment And Plan - Plan Assessment and Plan - Assessment/Plan -- Generalized weakness. Secondary to diarrhea and dehydration. PT eval and treat appreciated. -- Diarrhea. Still concerning. As needed Imodium to be used. -- History of CVA. Continue aspirin and statin. -- GERD. Continue Protonix. -- Hyperlipidemia. Continue statin. -- Hypertension. Stable. We will manage BP with hydralazine as needed. -- Alzheimer's dementia. Patient noted to be confused. Spouse reported that patient is slightly more confused than normal. Continue home medication. -- Gout. Continue allopurinol. -- GLYNN on CKD 2. Prerenal azotemia secondary to poor p.o. intake and fluid losses. Continue with IV hydration and monitor renal functions. -- DVT prophylaxis with Lovenox subQ. Discharge Plan: Home Plan to discharge in: Greater than 2 days Physician Review: Patient Assessed, Agree with Above Assessment and Plan
[2022-12-28] MEDS: LOPERAMIDE HCL 2 MG CAPSULE PO PRN ×2 (14:49→20:19)
[2022-12-28 18:55] LABS: Specific Gravity 1.017 (1.005-1.030); Urine Bacteria None Seen /HPF (<20); Urine Bilirubin NEGATIVE (Negative); Urine Blood Negative (Negative); Urine Clarity Clear (Clear); Urine Color Light-Yellow (Yellow); Urine Glucose NEGATIVE (Negative); Urine Mucus Slight /HPF (None Seen); Urine Protein NEGATIVE (Negative); Urine RBC <5 /HPF (None Seen); Urine Urobilinogen Normal (Normal)
[2022-12-29 06:56] LABS: Potassium 3.6 mEq/L (3.5-5.1)
[2022-12-29] MEDS ORDERED: POTASSIUM 25 MEQ EFFERV TAB PO ONE (07:53)
[2022-12-29 08:24] VITALS: O2SAT 98
[2022-12-29] MEDS: ASPIRIN 81 MG CHEWABLE TABLET PO SCH (09:00)
[2022-12-29] MEDS: ENOXAPARIN 40 MG/0.4 ML SQ SCH (09:00)
[2022-12-29] MEDS: PANTOPRAZOLE 40 MG INJ IVP SCH (09:00)
[2022-12-29] MEDS: LOPERAMIDE HCL 2 MG CAPSULE PO PRN (09:03)
[2022-12-29 09:49] VITALS: BP 123/66; TEMP 97.2
--- NOTE | 2022-12-29 10:36 | P.PN ---
Subjective Date of Service: 12/29/22 Chief Complaint: Generalized weakness Subjective: No new changes, Improving Physical Examination - Vital Signs Temperature: 97.2 F Blood Pressure: 123/66 Pulse: 65 Respirations: 16 Pulse Ox (%): 95 - Physical Exam General: Alert HEENT: Atraumatic, Normocephalic Neck: Supple Respiratory: Normal air movement Cardiovascular: Regular rate/rhythm, Normal S1 S2 Gastrointestinal: Soft and benign Musculoskeletal: No swelling Neurological: Normal speech - Studies Microbiology Data (last 24 hrs): 12/26/22 15:00 Stool Culture & Sensitivity - Final Assessment And Plan - Plan Assessment and Plan - Assessment/Plan -- Generalized weakness. Secondary to diarrhea and dehydration. PT eval and treat appreciated. -- Diarrhea. Still concerning. As needed Imodium to be used. -- History of CVA. Continue aspirin and statin. -- GERD. Continue Protonix. -- Hyperlipidemia. Continue statin. -- Hypertension. Stable. We will manage BP with hydralazine as needed. -- Alzheimer's dementia. Patient noted to be confused. Spouse reported that patient is slightly more confused than normal. Continue home medication. -- Gout. Continue allopurinol. -- GLYNN on CKD 2. Prerenal azotemia secondary to poor p.o. intake and fluid losses. Continue with IV hydration and monitor renal functions. -- DVT prophylaxis with Lovenox subQ. Discharge Plan: Home Plan to discharge in: Greater than 2 days Physician Review: Patient Assessed, Agree with Above Assessment and Plan
[2022-12-29] MEDS: NA CHLORIDE 0.9% 1,000 ML IV SCH (12:07)
--- NOTE | 2022-12-29 12:13 | P.DS ---
Admission Date: 12/26/22 Discharge Date: 12/29/22 Disposition: ROUTINE DISCHARGE Discharge Condition: GOOD Reason for Admission: Generalized weakness Vital Signs/Physical Exam: Temp Pulse Resp BP Pulse Ox 97.2 F 65 16 123/66 95 12/29/22 10:36 12/29/22 10:36 12/29/22 10:36 12/29/22 10:36 12/29/22 10:36 Laboratory Data at Discharge: WBC 8.00 thou/uL (4.3-10.9) 12/27/22 05:06 Hgb 14.2 g/dL (12.0-15.0) 12/27/22 05:06 Hct 44.0 % (36.0-45.0) 12/27/22 05:06 Plt Count 120 thou/uL (152-406) L 12/27/22 05:06 Sodium 143 mEq/L (136-145) D 12/29/22 05:30 Potassium 3.6 mEq/L (3.5-5.1) 12/29/22 05:30 BUN 11 mg/dL (7-18) 12/29/22 05:30 Creatinine 0.63 mg/dL (0.55-1.02) 12/29/22 05:30 Glucose 82 mg/dL (74-106) 12/29/22 05:30 Phosphorus 4.0 mg/dL (2.5-4.9) 12/26/22 22:28 Magnesium 2.4 mg/dL (1.6-2.4) 12/26/22 22:28 Total Bilirubin 0.3 mg/dL (0.2-1.0) 12/27/22 05:06 AST 18 U/L (15-37) 12/27/22 05:06 ALT 20 U/L (13-56) 12/27/22 05:06 Alkaline Phosphatase 88 U/L (45-117) D 12/27/22 05:06 Lipase 31 U/L (13-75) 12/26/22 11:53 Home Medications: Simvastatin [Zocor*] 1 tab PO BEDTIME 09/19/15 allopurinoL [Zyloprim*] 300 mg PO DAILY 09/19/15 Aspirin 325 mg PO DAILY 09/13/16 Cholecalciferol (Vitamin D3) [Vitamin D3] 1,000 unit PO DAILY 10/30/22 Cyanocobalamin (Vitamin B-12) [Vitamin B12] 2,500 mcg PO DAILY 10/30/22 Memantine HCl/Donepezil HCl [Namzaric 28 mg-10 mg Capsule] 1 cap PO DAILY 10/30/22 Loperamide [Imodium*] 2 mg PO Q4H PRN #10 cap 12/29/22 New Medications: Loperamide [Imodium*] 2 mg PO Q4H PRN #10 cap PRN Reason: Diarrhea Followup: Mitesh Richard MD [Primary Care Provider] -
== END 2022-12-29 13:28 | disposition home health service (06) | DRG 392 ==
LOC: ER 08:54 → ERHOLD 16:55 → 2ND 19:19
PROVIDERS: ADMIT Hospitalist; ATTEND Internal Medicine Nephrology
DX: R19.7 Diarrhea, unspecified (principal); N17.9 Acute kidney failure, unspecified; E86.0 Dehydration; E78.5 Hyperlipidemia, unspecified; K21.9 Gastro-esophageal reflux disease without esophagitis; G30.9 Alzheimer's disease, unspecified; F02.80 Dementia in other diseases classified elsewhere, unspecified severity, without behavioral disturbance, psychotic disturbance, mood disturbance, and anxiety; I12.9 Hypertensive chronic kidney disease with stage 1 through stage 4 chronic kidney disease, or unspecified chronic kidney disease; N18.2 Chronic kidney disease, stage 2 (mild); M10.9 Gout, unspecified; Z79.82 Long term (current) use of aspirin; Z86.73 Personal history of transient ischemic attack (TIA), and cerebral infarction without residual deficits; Z79.52 Long term (current) use of systemic steroids; Z79.899 Other long term (current) drug therapy; Z90.710 Acquired absence of both cervix and uterus; Z20.822 Contact with and (suspected) exposure to COVID-19
CPT/HCPCS: 36415; 51702; 70450; 74176; 80048; 80053; 81001; 83605; 83690; 83735; 83880; 84100; 84439; 84443; 85025; 87040; 87045; 87046; 87324; 87811; 96374; 97116; 97161; 99285; C9113; J0696; J1650; J7030; J7040

== ENCOUNTER 2023-05-12 09:02 | Emergency (ER) | payer OTHER ==
--- OUTSIDE RECORDS SUMMARY | 2023-05-12 09:06 | XMS REPORT | Continuity of Care Document ---
:1935 Author Organization [facility] t Address [address] [facility]. [address] [place] [address] Care Team Providers Name Role Phone STEFANIA SANTO Primary Care Physician Unavailable Stefania Santo MD Attending Clinician [phone] STEFANIA SANTO Attending Clinician Unavailable Only, Adc Test Attending Clinician Unavailable Poornima Otero MD Attending Clinician POORNIMA OTERO Attending Clinician Unavailable Doctor Unassigned, [place] Attending Clinician Unavailable Payers Payer Name Policy Type Policy Number Effective Date Expiration Date S ource Problems Condition Condition Condition Status Onset Resolution Last Treating Co mments Source Name Details Category Date Date Treatment Clinician Date 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[facility] 00 [facility] Vitamin D Vitamin D Disease Active [facility] deficiency deficiency 8 Bethanie kes 00:00: Medical 00 Mcdaniels Vitamin Vitamin Disease Active [facility] B12 B12 8 [facility] deficiency deficiency 00:00: Me dical 00 Mcdaniels 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 8 Bethanie kes emia emia 00:00: Medical 00 Center Allergies, Adverse Reactions, Alerts Allergy Allergy Status Severity Reaction(s) Onset Inactive Treating Comm ents Source Name Type Date Date Clinician NO KNOWN Drug Active Univers ALLERGIE Class [facility] NO KNOWN Allergy Active [facility] ALL[facility]GIE [facility] Social History Social Habit Start Date Stop Date Quantity Comments Source Exposure to Not sure [facility]-CoV-2 [facility] (event) Branch Alcohol intake 2021-02-13 2021-02-[address] [facility] Mckay es 00:00:00 00:00:00 non-drinker of Medical Ce nter alcohol (finding) Tobacco use and 2018-02-06 2018-02-06 Smokeless tobacco [facility] exposure [facility]00:00 non-user [facility] Center Sex Assigned At [address] Bethanie pegueros 00:00:00 00:00:00 Medical Center Smoking Status Start Date Stop Date Source Unknown if ever smoked [facility] Never smoked tobacco [facility] Medications Ordered Filled Start Stop Current Ordering Indication Dosage Frequency Signature Comments Components Source Medication Medication Date Date Medication? Clinician (SIG) Name Name aspirin 325 Yes Memory loss 325mg QD Take [address] MG EC 7-19 mg by Lukes tablet 10:55: mouth Medical 34 daily. Mcdaniels cholecalcif Yes Vitamin D 1000U QD Take 1,[address] rosanne 7-19 deficiency Units by [facility] (VITAMIN 10:55: mouth Medical D3) 1,000 34 daily. Mcdaniels unit tablet b complex Yes Vitamin B12 1{tbl} QD Take [address] [facility] vitamins (B 7-19 deficiency tablet by [facility] COMPLEX-VIT 10:55: mouth Medic al VELARDE B12) 34 daily. Mcdaniels tablet allopurinol Yes 100mg QD Take [address] (ZYLOPRIM) 7-19 mg by [facility] 100 MG 10:55: mouth Medical tablet 34 daily. Mcdaniels aspirin 325 Yes Memory loss 325mg QD Take [address] MG EC 7-19 mg by [facility] tablet 10:55: mouth Medical 34 daily. Mcdaniels cholecalcif Yes Vitamin D 1000U QD Take 1,[address] rosanne 7-19 deficiency Units by [facility] (VITAMIN 10:55: mouth Medical D3) 1,000 34 daily. Mcdaniels unit tablet b complex Yes Vitamin B12 1{tbl} QD Take [address] vitamins (B 7-19 deficiency tablet by [facility]ukes COMPLEX-VIT 10:55: mouth Medic al VELARDE B12) 34 daily. Mcdaniels tablet allopurinol Yes 100mg QD Take [address] (ZYLOPRIM) 7-19 mg by [facility] 100 MG 10:55: mouth Medical tablet 34 daily. Mcdaniels aspirin 325 Yes Memory loss 325mg QD Take [address] MG EC 7-19 mg by [facility] tablet 10:55: mouth Medical 34 daily. Mcdaniels cholecalcif Yes Vitamin D 1000U QD Take 1,[address] [facility]anne 7-19 deficiency Units by [facility] (VITAMIN 10:55: mouth Medical D3) 1,000 34 daily. Mcdaniels unit tablet b complex Yes Vitamin B12 1{tbl} QD Take [address] [facility] vitamins (B 7-19 deficiency tablet by [facility] COMPLEX-VIT 10:55: mouth Medic al VELARDE B12) 34 daily. Mcdaniels tablet allopurinol Yes 100mg QD Take [address] (ZYLOPRIM) 7-19 mg by [facility] 100 MG 10:55: mouth Medical tablet 34 daily. Mcdaniels aspirin 325 Yes Memory loss 325mg QD Take [address] MG EC 7-19 mg by [facility]ukes tablet 10:55: mouth Medical 34 daily. Mcdaniels cholecalcif Yes Vitamin D 1000U QD Take 1,[address] [facility]anne 7-19 deficiency Units by [facility] (VITAMIN 10:55: mouth Medical D3) 1,000 34 daily. Mcdaniels unit tablet b complex Yes Vitamin B12 1{tbl} QD Take [address] [facility] vitamins (B 7-19 deficiency tablet by [facility] COMPLEX-VIT 10:55: mouth Medic al VELARDE B12) 34 daily. Mcdaniels tablet allopurinol Yes 100mg QD Take [address] (ZYLOPRIM) 7-19 mg by [facility] 100 MG 10:55: mouth Medical tablet 34 daily. Mcdaniels aspirin 325 Yes Memory loss 325mg QD Take [address] MG EC 7-19 mg by Lukes tablet 10:55: mouth Medical 34 daily. Mcdaniels cholecalcif Yes Vitamin D 1000U QD Take 1,[address] rosanne 7-19 deficiency Units by [facility] (VITAMIN 10:55: mouth Medical D3) 1,000 34 daily. Mcdaniels unit tablet b complex Yes Vitamin B12 1{tbl} QD Take [address] [facility] vitamins (B 7-19 deficiency tablet by [facility] COMPLEX-VIT 10:55: mouth Medic al VELARDE B12) 34 daily. Mcdaniels tablet allopurinol Yes 100mg QD Take [address] (ZYLOPRIM) 7-19 mg by [facility] 100 MG 10:55: mouth Medical tablet 34 daily. Mcdaniels aspirin 325 Yes Memory loss 325mg QD Take [address] MG EC 7-19 mg by [facility]ukes tablet 10:55: mouth Medical 34 daily. Mcdaniels cholecalcif Yes Vitamin D 1000U QD Take 1,[address] [facility] 7-19 deficiency Units by [employer] [place] (VITAMIN 10:55: mouth Medical D3) 1,000 34 daily. Mcdaniels unit tablet b complex Yes Vitamin B12 1{tbl} QD Take [address] vitamins (B 7-19 deficiency tablet by [facility] COMPLEX-VIT 10:55: mouth Medic al VELARDE B12) 34 daily. Mcdaniels tablet allopurinol Yes 100mg QD Take [address] (ZYLOPRIM) 7-19 mg by [facility] 100 MG 10:55: mouth Medical tablet 34 daily. Mcdaniels Namzaric Yes Memory loss 1{capsu QD Take [address] 28-10 mg 7-19 le} capsule by [facility]ukes CSpX 00:00: mouth Medical 00 daily. Mcdaniels simvastatin Yes Mixed 20mg QD Take [address] [facility] (ZOCOR) 20 7-19 hyperlipide tablet (20 [facility] MG tablet 00:00: geno mg total) Med ical 00 by mouth Center daily. Namzaric Yes Memory loss 1{capsu QD Take [address] 28-10 mg 7-19 le} capsule by [facility]ukes CSpX 00:00: mouth Medical 00 daily. Mcdaniels simvastatin Yes Mixed 20mg QD Take [address] (ZOCOR) 20 7-19 hyperlipide tablet (20 [facility] MG tablet 00:00: geno mg total) Med ical 00 by mouth Center daily. Namzaric Yes Memory loss 1{capsu QD Take [address] 28-10 mg 7-19 le} capsule by [facility] CSpX 00:00: mouth Medical 00 daily. Mcdaniels simvastatin Yes Mixed 20mg QD Take [address] (ZOCOR) 20 7-19 hyperlipide tablet (20 [facility] MG tablet 00:00: geno mg total) Med ical 00 by mouth Center daily. Namzaric Yes Memory loss 1{capsu QD Take [address] 28-10 mg 7-19 le} capsule by [facility] CSpX 00:00: mouth Medical 00 daily. Mcdaniels simvastatin Yes Mixed 20mg QD Take [address] (ZOCOR) 20 7-19 hyperlipide tablet (20 [facility] MG tablet 00:00: geno mg total) Med ical 00 by mouth Center daily. [facility] Memory [facility] 1{capsu QD Take [address] 28-10 mg 7-19 le} capsule by [facility]ukes CSpX 00:00: mouth Medical 00 daily. Mcdaniels simvastatin Yes Mixed 20mg QD Take [address] (ZOCOR) 20 7-19 hyperlipide tablet (20 [facility] MG tablet 00:00: geno mg total) Med ical 00 by mouth Center daily. Namzaric Yes Memory loss 1{capsu QD Take [address] 28-10 mg 7-19 le} capsule by [facility] CSpX 00:00: mouth Medical 00 daily. Mcdaniels simvastatin Yes Mixed 20mg QD Take [address] (ZOCOR) 20 7-19 hyperlipide tablet (20 [facility] MG tablet 00:00: geno mg total) Med ical 00 by mouth Center daily. Immunizations Ordered Immunization Filled Immunization Date Status Commen ts Source Name Name Influenza TIV (IM) 2019-05-[address] [facility] 00:00:[facility] Influenza TIV (IM) 2019-05-[address] [facility] 00:00:00 [facility] Influenza TIV (IM) 2019-05-[address] [facility] 00:00:00 [facility] Influenza TIV (IM) 2019-05-[address] [facility] 00:00:00 [facility] Influenza TIV (IM) 2019-05-[address] [facility] 00:00:00 [facility] Pneumococcal 2018-08-[address] [facility] Conjug[facility] (Prevnar) [facility]:00[facility] [facility] Conjugate (Prevnar) 00:00:00 Medic al [facility]iels Pneumococcal 2018-08-[address] [facility] Conjugate (Prevnar) 00:00:00 Medic al 13-[facility] Mcd[facility]iels Pneumococcal 2018-08-[address] [facility] Conjugate (Prevnar) 00:00:00 [facility] Pneumococcal 2018-08-[address] [facility] Conjugate (Prevnar) 00:00:00 Medic al [facility] SHINGLES VARICELLA 2018-07-[address] [facility] (ZOSTAVAX) [facility] 00:00:00 Medical Center SHINGLES VARICELLA 2018-07-[address] [facility] (ZOSTAVAX) ZOSTER 00:00:00 Medical Center SHINGLES VARICELLA 2018-07-[address] [facility] (ZOSTAVAX) ZOSTER 00:00:00 Medical Center SHINGLES VARICELLA 2018-07-[address] [facility] (ZOSTAVAX) ZOSTER 00:00:00 Medical Center SHINGLES VARICELLA 2018-07-[address] [facility] (ZOSTAVAX) ZOSTER 00:00:00 [facility] Center Td 7+ years, (TDVAX) 2016-12-[address] [facility] 2 Lf tetanus toxoid 00:00:00 Medic al preservative free Center Td 7+ years, (TDVAX) 2016-12-[address] [facility] 2 Lf tetanus toxoid 00:00:00 Medic al preservative free Center Td 7+ years, (TDVAX) 2016-12-[address] [facility] 2 Lf tetanus toxoid 00:00:00 Medic al preservative free Center Td 7+ years, (TDVAX) 2016-12-[address] [facility] 2 Lf tetanus toxoid 00:00:00 Medic al preservative free Center Td 7+ years, (TDVAX) 2016-12-[address] [facility] 2 Lf tetanus toxoid 00:00:00 Medic al preservative free Center Pneumococcal 2016-06-[address] [facility] Polysaccharide 00:00:00 Medical (Pneumovax) Center Pneumococcal 2016-06-[address] [facility] Polysaccharide 00:00:00 Medical (Pneumovax) Center Pneumococcal 2016-06-[address] [facility] Polysaccharide 00:00:00 Medical (Pneumovax) Center Pneumococcal 2016-06-[address] [facility] Polysaccharide 00:00:00 Medical (Pneumovax) Center Pneumococcal 2016-06-[address] [facility] Polysaccharide 00:00:00 Medical (Pneumovax) Center Pneumococcal Unknown Completed [facility] Polysaccharide Medical (Pneumovax) Center Td 7+ years, (TDVAX) Unknown Completed [facility] 2 Lf tetanus toxoid Medic al preservative free Center Influenza TIV (IM) Unknown Completed [facility] Pneumococcal Unknown Completed [facility] Conjugate (Prevnar) Medic al [facility] SHINGLES VARICELLA Unknown Completed [facility] (ZOSTAVAX) [facility] Center Vital Signs Vital Name Observation Time Observation Value Comments Source HEIGHT 2021-02-13 10:53:00 167.6 cm WEIGHT 2021-02-13 10:53:00 66.044 kg WEIGHT 2020-08-18 13:56:00 67.949 kg WEIGHT 2020-01-19 00:00:00 65.545 kg WEIGHT 2020-01-19 00:00:00 65.545 kg Procedures Procedure Date / Time Performed Performing Clinician Sour e XR DXA BONE DENSITY 2022-02-13 13:06:[address] [facility] Medical STUDY [facility] ASSIGNMENT OF BENEFITS 2020-07-19 21:02:39 Doctor Unassigned, No [facility] Plan of Care Planned Activity Planned Date Details Comments Source Future Scheduled 2026-12-27 DTAP/TDAP/TD VACCINES [facility] Test 00:00:00 (2 - Td or Tdap) Medical [facility] [code = DTAP/TDAP/TD VACCINES (2 - Td or Tdap)] Future Scheduled 2026-12-27 DTAP/TDAP/TD VACCINES [facility] Test 00:00:00 (2 - Td or Tdap) [facility] [code = DTAP/TDAP/TD VACCINES (2 - Td or Tdap)] Future Scheduled 2026-12-27 DTAP/TDAP/TD VACCINES [facility] Test 00:00:00 (2 - Td or Tdap) Medical [facility] [code = DTAP/TDAP/TD VACCINES (2 - Td or Tdap)] Future Scheduled 2026-12-27 DTAP/TDAP/TD VACCINES [facility] Test 00:00:00 (2 - Td or Tdap) [facility] [code = DTAP/TDAP/TD VACCINES (2 - Td or Tdap)] Future Scheduled 2026-12-27 DTAP/TDAP/TD VACCINES [facility] Test 00:00:00 (2 - Td or Tdap) Medical [facility] [code = DTAP/TDAP/TD VACCINES (2 - Td or Tdap)] Future Scheduled 2026-12-27 DTAP/TDAP/TD VACCINES [facility] Test 00:00:00 (2 - Td or Tdap) Medical [facility] [code = DTAP/TDAP/TD VACCINES (2 - Td or Tdap)] Future Scheduled 2023-03-[address] [facility] Test 00:00:00 (#1) [code = Medical Center Influenza Vaccine (#1)] Future Scheduled 2023-03-[address] [facility] Test 00:00:00 (#1) [code = Medical Center Influenza Vaccine (#1)] Future Scheduled 2023-03-[address] [facility] Test 00:00:00 (#1) [code = Medical Center Influenza Vaccine (#1)] Future Scheduled 2023-03-[address] [facility] Test 00:00:00 (Season Ended) [code Medical Center = INFLUENZA VACCINE (Season Ended)] Future Scheduled 2023-03-[address] [facility] Test 00:00:00 (Season Ended) [code Medical Center = INFLUENZA VACCINE (Season Ended)] Future Scheduled 2022-07-29 FALLS RISK SCREENING CHI [...] Center DEPRESSION SCREENING (12+)] Future Scheduled 2022-07-[address] [facility] Test 00:00:00 (12+) [code = Medical Center DEPRESSION SCREENING (12+)] Future Scheduled 2022-07-29 F[place]S [address]ISK SCREENING [facility] Test 00:00:00 [code = FALLS RISK Medical C enter SCREENING] Future Scheduled 2022-03-[address] [facility] Test 00:00:00 (#1) [code = Medical Center INFLUENZA VACCINE (#1)] Future Scheduled 2021-09-24 COVID-19 VACCINE (4 - [facility] Test 00:00:00 Booster for [facility] series) [code = COVID-19 VACCINE (4 - [...] Cessation Counseling and Screening (12+)] Future Scheduled 2021-07-19 COVID-19 VACCINE (4 - [facility] Test 00:00:00 [facility] series) [code = COVID-19 VACCINE (4 - Booster for Moderna series)] Future Scheduled 2021-07-19 COVID-19 VACCINE (4 - [facility] Test 00:00:00 Booster for [facility] series) [code = COVID-19 VACCINE (4 - Booster for Moderna series)] Future Scheduled 2021-07-19 COVID-19 VACCINE (4 - [facility] Test 00:00:00 Booster for [facility] series) [code = COVID-19 VACCINE (4 - Booster for Moderna series)] Future Scheduled 2021-07-19 COVID-19 VACCINE (4 - [facility] Test 00:00:00 Booster for [facility] series) [code = COVID-19 VACCINE (4 - Booster for Moderna series)] Future Scheduled 2021-07-19 COVID-19 VACCINE (4 - [facility] Test 00:00:00 Booster for [facility] series) [code = COVID-19 VACCINE (4 - [...] Date/Time Type Type Clinicians Facility Department ID 2022-02-13 2022-02-[address] [id number] [address] 12:28:53 23:59:00 Encounter Stefania ramirez [facility] 2022-02-13 2022-02-13 [facility] [id number] [facility] 12:28:53 23:59:00 STEFANIA 2022-02-13 2022-02-13 Outside SATHYA Santo [id number] 00:00:00 00:00:00 Orders Stefania [facility] 2021-08-15 2021-08-15 Outpatient ANTHONY SANTO [facility] [id number] [facility] 00:00:00 00:00:00 STEFANIA 2021-02-13 2021-02-13 [facility] [id number] [facility] 00:00:00 00:00:00 STEFANIA 2020-08-18 2020-08-18 Outpatient ANTHONY SANTO [facility] [id number] SLE 00:00:00 00:00:00 STEFANIA 2020-07-19 2020-07-19 Laboratory Only, [facility] Test [facility] [id number] Univers 15:05:07 15:20:07 Only [id number] [id number] [facility] [id number] [address] 2020-07-19 2020-07-19 Laboratory Only, [facility] [id number] 15:05:07 15:20:07 Only Georgi Waggoner [id number] [place] [id number] [place] [id number] 2020-07-19 2020-07-19 Outpatient Jhoana OTERO [facility] [id number] Univers 15:15:00 15:15:00 POORNIMA itheladio [facility] 2020-07-19 2020-07-19 Orders Doctor ESCOBAR [id number] [facility] 00:00:00 00:00:00 Only Unassigned, PAIGE [id number] ity [facility] [id number] [facility] [id number] [place] [address] Branch 2020-07-19 2020-07-19 Orders Doctor ESCOBAR [id number] 00:00:00 00:00:00 Only Unassigned, PAIGE [id number] [facility] [id number] 2020-01-19 2020-01-19 Outpatient ANTHONY [facility] [id number] SLE 00:00:00 00:00:00 Results Test Description Test Time Test Comments Results Result [facility] e Comments RAD, BONE DENSITY 2022-02-13 Reason for STUDY 13:13:00 Exam:->Osteopen ia of multiple [facility] CENTERName: MANISHA ESTES : 1935 Sex: F *FINAL REPORT Exam: Bone mineral density study. History: Osteopenia. Comparison: None Discussion: Evaluation of the left hip and lumbar spine was performed utilizing DEXA Hologic bone densitometer. The study is technically adequate. Left hip total bone mineral density: 0.641gm/cm2, T-score is -2.5, Z-score is -0.1. Left hip femoral neck bone mineral density: 0.570gm/cm2, T-score is -2.5, Z-score is zero. Lumbar spine total bone mineral density:1.007gm/cm2, T-score is-0.4, Z-score is 2.5. Impression:1. Osteoporosis of the left hip, fracture risk is high2. Normal bone mineral density of the lumbar spine, fracture risk is not increased. Least significant change (LSC) for bone mineral density as provided by senior actuarial analyst is 0.023 g/cm2 for lumbar spine and 0.027 g/cm2 for total hip. 10 -year fracture risk per WHO Fracture Risk Assessment Tool (FRAX) for:Not reported because some T-scores at or below -2.5 The patient's fracture risk is compared to an age-matched control. Medical evaluation for secondary causes of low bone bone mineral density may be appropriate. Correlate clinically for the necessity and timing of the next bone mineral density study. Signed: Mary Ramesheport Verified Date/Time: 02/13/2022 13:13:55 Reading Location: [facility] Reading Room [address] [place] [address] /FREE T4 IF INDICATED 2020-01-19 17:46:00 Test Item Value Reference Range Interpretation Comme nts THYROID STIMULATING HORMONE (BEAKER) (test code = 772) 2.040 uIU /mL 0.350-4.940 Planimeter Operator ID - BSLIPID [id number] 17:28:00 Test Item Value Reference Range Interpretation [...] Borderline 130-159 High 160-189 Very High >=190 Planimeter Operator ID - BSCOMPREHENSIVE METABOLIC [id number] 17:28:00 Test Item Value Reference Range Interpretation [...] S NOT APPLICABLE FOR DIALYSIS PATIEN TS. Planimeter Operator ID - BSCBC W/PLT COUNT & AUTO [id number] 16:47:00 Test Item Value Reference Range Interpretation [...] PERCENT (BEAKER) (test code = 2801) URIC [id number] 14:41:00 Test Item Value Reference Range Interpretation Comments URIC ACID (BEAKER) (test code = 5.5 mg/dL 2.6-7.2 773) COMPREHENSIVE METABOLIC [id number] 14:41:00 Test Item Value Reference Range Interpretation [...] S NOT APPLICABLE FOR DIALYSIS PATIEN TS. [id number] 12:34:00 Test Item Value Reference Range Interpretation Comments THYROID STIMULATING HORMONE 1.38 uIU/mL 0.35-4.94 (BEAKER) (test code = 772) VITAMIN [id number] 12:34:00 Test Item Value Reference Range Interpretation Comments VITAMIN B12 (BEAKER) (test code = 1882 pg/mL 213-816 H 774) BASIC METABOLIC [id number] 12:04:00 Test Item Value Reference Range Interpretation [...] NOT APPLICABLE FOR DIALYSIS PATIEN TS. VITAMIN [id number] 14:07:00 Test Item Value Reference Range Interpretation Comments VITAMIN B12 (BEAKER) (test code = 1427 pg/mL 213-816 H 774) VITAMIN D, [id number] 14:07:00 Test Item Value Reference Range Interpretation Comments VITAMIN D 25-OH (BEAKER) (test 51.2 ng/mL 6.6-49.9 H code = 2764) Effective 05/08/2017: Reference Range ChangeNew: 6.6-49.9 ng/mL Previous: 13.0- 47.8 ng/mLRecommendedVitamin D Target Range: 30.0-40.0 ng/mLCOMPREHENSIVE METABOLIC [id number] 13:40:00 Test Item Value Reference Range Interpretation [...] PATIEN TS. CBC W/PLT COUNT & AUTO [id number] 13:02:00 Test Item Value Reference Range Interpretation [...]
[2023-05-12] MEDS ORDERED: KETOROLAC 30 MG/ML INJ ONE (09:26)
[2023-05-12 09:41] LABS: Specific Gravity 1.015 (1.005-1.030); Urine Bacteria None Seen /HPF (<20); Urine Bilirubin NEGATIVE (Negative); Urine Blood Negative (Negative); Urine Clarity Turbid (Clear); Urine Color Light-Yellow (Yellow); Urine Glucose NEGATIVE (Negative); Urine Mucus Slight /HPF (None Seen); Urine Protein NEGATIVE (Negative); Urine RBC <5 /HPF (None Seen); Urine Urobilinogen Normal (Normal); Urine pH 5.5 (5.0-7.0)
--- NOTE | 2023-05-12 10:10 | RAD REPORT ---
EXAM DESCRIPTION: RAD - Lumbar Spine 3 Views - 05/12/2023 10:03 am CLINICAL HISTORY: LOWER BACK PAIN Radiculopathy COMPARISON: <Comparisons> FINDINGS: Vertebral body heights appear maintained. No compression fracture noted. Disc thinning is present throughout the lumbar levels. And vacuum disc degeneration is present at L3-4 and L4-5. Moder ate dextroscoliosis of the lumbar spine is seen. Aortic atherosclerosis. IMPRESSION: Moderate spondylosis and dextroscoliosis of the lumbar spine is present.
--- NOTE | 2023-05-12 11:15 | EDPHYS ---
Physician Documentation [facility] Name: Josey Briscoe Age: 88 yrs Sex: Female : 1935 Arrival Date: 05/12/2023 Time: 09:02 Bed 18 Private MD: ED Physician Bebeto Lacy HPI: 05/12 11:54 This 88 yrs old Female presents to ER via EMS with complaints of Low Back Pain. kb 11:54 The patient presents with pain that is acute, with no known mechanism of injury. The kb symptoms are located in the lumbar area. The pain does not radiate. The problem was sustained without known cause. Onset: The symptoms/episode began/occurred 2 day(s) ago, and became worse this morning. Modifying factors: The patient symptoms are alleviated by nothing, the patient symptoms are aggravated by any movement. Associated signs and symptoms: The patient has no apparent associated signs or symptoms. Severity of symptoms: At their worst the symptoms were moderate, in the emergency department the symptoms are unchanged. The patient has not experienced similar symptoms in the past. The patient has not recently seen a physician. reports pt has had some lumbar pain for 2 days. States the pain was worse this morning and pt wasn't able to get out of bed. Denies injury or trauma. . Historical: - Allergies: 09:08 No Known Allergies; kc6 - PMHx: 09:08 Alzheimer's disease; CVA; Dementia; Gout; Hyperlipidemia; Hypertensive disorder; kc6 - PSHx: 09:08 hysterectomy; kc6 - Immunization history:: Adult Immunizations unknown. - Social history:: Smoking status: unknown. ROS: 11:55 Constitutional: Negative for fever, chills, and weight loss, kb 11:55 Back: Positive for pain with movement, of the lumbar area, 11:55 All other systems are negative, Exam: 11:55 Constitutional: This is a well developed, well nourished patient who is awake, alert, kb and in no acute distress. Head/Face: Normocephalic, atraumatic. ENT: Moist Mucous membranes Cardiovascular: Regular rate Respiratory: Respirations even and unlabored. No increased work of breathing. Talking in full sentences Abdomen/GI: Soft, non-tender. No distention Skin: Warm, dry with normal turgor. Normal color. MS/ Extremity: Pulses equal, no cyanosis. Neurovascular intact. Full, normal range of motion. 11:55 Back: pain, that is mild, of the lumbar area, ROM is painful, normal spinal alignment noted, CVA tenderness, is absent, vertebral tenderness, is not appreciated, Vital Signs: 09:07 BP 127 / 79; Pulse 85; Resp 16 S; Temp 97.6(O); Pulse Ox 95% on R/A; kc6 10:13 BP 135 / 70; Pulse 64; Resp 16 S; Pulse Ox 94% on R/A; kc6 MDM: 09:08 Patient medically screened. ec2 11:56 Differential diagnosis: arthritis, strain, fracture, sciatica, UTI. Data reviewed: kb vital signs, nurses notes. Test considered but Not performed: CT: CT scan considered, but pt has had no injury/trauma, no tenderness upon exam, and pain resolved after toradol. x-ray completed because pt was recently diagnosed with a fracture in foot and is not sure how it happened. . Historians other than the Patient: EMS: [facility]. Spouse/Significant Other: . Counseling: I had a detailed discussion with the patient and/or guardian regarding the historical points, exam findings, and any diagnostic results supporting the discharge/admit diagnosis, lab results, radiology results, the need for outpatient follow up, a family practitioner, to return to the emergency department if symptoms worsen or persist or if there are any questions or concerns that arise at home. 05/12 09:12 Order name: Urinalysis w/ reflexes; Complete Time: 09:42 kb 05/12 09:12 Order name: Lumbar Spine (3 Views) XRAY; Complete Time: 10:11 kb Administered Medications: 09:28 Drug: Ketorolac IM 30 mg IM once Route: IM; Site: right deltoid; kc6 10:14 Follow up: Response: No adverse reaction; Pain is decreased kc6 Disposition: 14:46 Co-signature as Attending Physician, Bebeto Lacy MD. ec2 Disposition Summary: 05/12/23 11:14 Discharge Ordered Notes: Location: Home kb Condition: Stable kb Diagnosis - Low back pain kb Followup: kb - With: Emergency Department - When: As needed - Reason: Worsening of condition Followup: kb - With: Private Physician - When: 2 - 3 days - Reason: Recheck today's complaints, Continuance of care, Re-evaluation by your physician Discharge Instructions: - Discharge Summary Sheet kb - Musculoskeletal Pain kb Forms: - Medication Reconciliation Form kb - Thank You Letter kb - Antibiotic Education kb - Prescription Opioid Use kb - Patient Portal Instructions kb - Leadership Thank You Letter kb Prescriptions: - Diclofenac Sodium 75 mg Oral tablet, delayed release (enteric coated) - take 1 tablet ORAL route 2 times per day As needed; 30 tablet; Refills: 0, kb Product Selection Permitted Signatures: Dispatcher [employer] Sherlyn Walters FNP-C Pratima Samano RN RN kc6 Bebeto Lacy MD MD ec2 Corrections: (The following items were deleted from the chart) 09:09 09:08 Allergies: Aspirin; kc6 kc6
--- NOTE | 2023-05-12 11:15 | ER ---
Nurse's Notes [facility] Name: Josey Briscoe Age: 88 yrs Sex: Female : 1935 Arrival Date: 05/12/2023 Time: 09:02 Bed 18 Private MD: Diagnosis: Low back pain Presentation: 05/12 09:07 Chief complaint: EMS states: they were toned out for low back pain by the this kc6 morning. he states he was unable to get her out of bed like usual. BGL en route 108. 1gm PO Tylenol given by EMS. Coronavirus screen: At this time, the client does not indicate any symptoms associated with coronavirus-19. Ebola Screen: No symptoms or risks identified at this time. Initial Sepsis Screen: Does the patient meet any 2 criteria? No. Patient's initial sepsis screen is negative. Does the patient have a suspected source of infection? No. Patient's initial sepsis screen is negative. Risk Assessment: Do you want to hurt yourself or someone else? Patient reports no desire to harm self or others. Onset of symptoms was May 12, 2023. 09:07 Method Of Arrival: EMS: [facility] kc6 09:07 Acuity: EMILIE 4 kc6 Triage Assessment: 09:08 General: Appears in no apparent distress. comfortable, Behavior is calm, cooperative, kc6 appropriate for age, quiet. Pain: Complains of pain in back. EENT: No signs and/or symptoms were reported regarding the EENT system. Neuro: Level of Consciousness is awake, alert, obeys commands, Oriented to person, Appropriate for age. Cardiovascular: Capillary refill < 3 seconds. Respiratory: Airway is patent Trachea midline Respiratory effort is even, unlabored, Respiratory pattern is regular, symmetrical. GI: No signs and/or symptoms were reported involving the gastrointestinal system. : No signs and/or symptoms were reported regarding the genitourinary system. Derm: No signs and/or symptoms reported regarding the dermatologic system. Skin is intact, is healthy with good turgor, Skin is pink, warm \T\ dry. Musculoskeletal: No signs and/or symptoms reported regarding the musculoskeletal system. Circulation, motion, and sensation intact. Capillary refill < 3 seconds, Range of motion: intact in all extremities. Historical: - Allergies: 09:08 No Known Allergies; kc6 - PMHx: 09:08 Alzheimer's disease; CVA; Dementia; Gout; Hyperlipidemia; Hypertensive disorder; kc6 - PSHx: 09:08 hysterectomy; kc6 - Immunization history:: Adult Immunizations unknown. - Social history:: Smoking status: unknown. Screenin:09 [facility] ED Fall Risk Assessment (Adult) History of falling in the last 3 months, kc6 including since admission No falls in past 3 months (0 pts) Confusion or Disorientation Yes (5 pts) Intoxicated or Sedated No (0 pts) Impaired Gait Yes (1 pt) Mobility Assist Device Used Yes (1 pt) Altered Elimination No (0 pt) Score/Fall Risk Level 3 or more points = High Risk. Abuse screen: Denies threats or abuse. Denies injuries from another. Nutritional screening: No deficits noted. Tuberculosis screening: No symptoms or risk factors identified. Assessment: 09:10 Reassessment: please see triage assessment. kc6 10:13 Reassessment: Patient appears in no apparent distress at this time. No changes from [facility] previously documented assessment. Patient and/or family updated on plan of care and expected duration. Pain level reassessed. Patient is alert, oriented x 3, equal unlabored respirations, skin warm/dry/pink. 11:12 Reassessment: Patient appears in no apparent distress at this time. No changes from [facility] previously documented assessment. Patient and/or family updated on plan of care and expected duration. Pain level reassessed. Patient is alert, oriented x 3, equal unlabored respirations, skin warm/dry/pink. Vital Signs: 09:07 BP 127 / 79; Pulse 85; Resp 16 S; Temp 97.6(O); Pulse Ox 95% on R/A; kc6 10:13 BP 135 / 70; Pulse 64; Resp 16 S; Pulse Ox 94% on R/A; 6 ED Course: 09:06 Patient arrived in ED. kc6 09:08 Bebeto Lacy MD is Attending Physician. ec2 09:08 Triage completed. kc6 09:08 Arm band placed on. kc6 09:10 Patient has correct armband on for positive identification. Bed in low position. Call [facility] light in reach. Side rails up X2. Adult w/ patient. Client placed on continuous cardiac and pulse oximetry monitoring. NIBP monitoring applied. 09:11 Sherlyn Carmona FNP-C is [facility] kb 09:27 Pratima Harris, RN is Primary Nurse. kc6 09:30 Straight cath inserted, using sterile technique, 16 Fr. Specimen obtained. Returned kc6 clear yellow urine. Patient tolerated well. 10:05 Lumbar Spine (3 Views) XRAY In Process Unspecified. EDMS 11:22 No provider procedures requiring assistance completed. Patient did not have IV access kc6 during this emergency room visit. Administered Medications: 09:28 Drug: Ketorolac IM 30 mg IM once Route: IM; Site: right deltoid; kc6 10:14 Follow up: Response: No adverse reaction; Pain is decreased kc6 Medication: 11:23 VIS not applicable for this client. kc6 Outcome: 11:14 Discharge ordered by . kb 11:22 Discharged to home via wheelchair, with significant other, kc6 11:22 Condition: improved 11:22 Discharge instructions given to patient, significant other, Instructed on discharge instructions, follow up and referral plans. medication usage, Demonstrated understanding of instructions, follow-up care, medications, Prescriptions given X 1, 11:23 Patient left the ED. kc6 Signatures: Dispatcher [employer] EDMS Sherlyn Carmona FNP-C SITE SUPERVISING TECHNICAL OPERATOR-Esdrasb Pratima Harris RN RN kc6 Bebeto Lacy MD MD ec2 Corrections: (The following items were deleted from the chart) 09:09 09:08 Allergies: Aspirin; kc6 kc6 09:39 09:07 Chief complaint: EMS states: they were toned out for low back pain by the kcMahsa this morning. he states he was unable to get her out of bed like usual. BGL en route 108 kc6
[2023-05-12 11:28] VITALS: TEMP 97.6
[2023-05-12 11:29] VITALS: BP 135/70; O2SAT 94
== END 2023-05-12 11:23 | disposition home or self-care (01) ==
LOC: ER 09:02
DX: M54.50 Low back pain, unspecified (principal); I10 Essential (primary) hypertension; G30.9 Alzheimer's disease, unspecified; F02.80 Dementia in other diseases classified elsewhere, unspecified severity, without behavioral disturbance, psychotic disturbance, mood disturbance, and anxiety; Z86.73 Personal history of transient ischemic attack (TIA), and cerebral infarction without residual deficits
CPT/HCPCS: 51702; 72100; 81001; 96372; 99285

== ENCOUNTER → 2023-07-19 | Emergency (ER) | payer OTHER ==
[2023-07-19 15:05] LABS: Hematocrit 42.4 % (36.0-45.0); MCV 93.7 fL (80-100); MPV 9.5 fL (7.6-11.3); Platelets 207 thou/uL (152-406); RBC Red Blood Cell Count 4.53 M/uL (3.86-4.86)
[2023-07-19 15:06] LABS: Absolute Lymphocytes (CBC) 3.4 K/uL (0.7-4.9); Lymphocytes % 26.7 % (15.3-44.8)
[2023-07-19 15:15] LABS: Albumin 3.1 g/dL (3.4-5.0); Bilirubin Direct 0.1 mg/dL (0-0.2); Bilirubin Indirect, Calculated 0.3 mg/dL (0.2-0.8); Bilirubin Total 0.4 mg/dL (0.2-1.0); Protein, Total 6.8 g/dL (6.4-8.2)
[2023-07-19 15:31] LABS: Barbiturates NEGATIVE (NEGATIVE); Benzodiazepines NEGATIVE (NEGATIVE); Cocaine NEGATIVE (NEGATIVE); METHAMPHETAM NEGATIVE (NEGATIVE); Methadone NEGATIVE (NEGATIVE); Opiates NEGATIVE (NEGATIVE); Phencyclidine NEGATIVE (NEGATIVE); THC Cannibis NEGATIVE (NEGATIVE)
[2023-07-19 15:34] LABS: Specific Gravity 1.013 (1.005-1.030); Urine Bacteria None Seen /HPF (<20); Urine Bilirubin NEGATIVE (Negative); Urine Blood Negative (Negative); Urine Clarity Extremely Turbid (Clear); Urine Color Light-Yellow (Yellow); Urine Glucose NEGATIVE (Negative); Urine Protein NEGATIVE (Negative); Urine RBC <5 /HPF (None Seen); Urine Urobilinogen Normal (Normal)
--- NOTE | 2023-07-19 16:01 | RAD REPORT ---
EXAM DESCRIPTION: CT - Head Brain Wo Cont - 07/19/2023 3:35 pm CLINICAL HISTORY: CONFUSED COMPARISON: Head Brain Wo Cont dated 12/26/2022; Head Brain Wo Cont dated 10/30/2017 TECHNIQUE: Noncontrast head CT images were obtained without IV contrast. Multiplanar reformats were generated and reviewed. All CT scans are performed using dose optimization technique as appropriate and may include automated exposure control or mA/KV adjustment according to patient size. FINDINGS: No intracranial hemorrhage, mass, or edema. Midline structures are unremarkable. Stable ventricular caliber, with mild to moderate diffuse parenchymal volume loss. Stable pattern of periventricular and deep white matter hypodensities, most pronounced in the left love binsular region. This is nonspecific, but suggestive of chronic small vessel ischemic changes. Cruz-white matter differentiation is preserved, without evidence of acute infarct. No abnormal extra- axial fluid collections. Mastoid air cells and visualized portions of the paranasal sinuses are clear. Periapical collections along the maxillary alveolus, probably stable, suggestive of periapical abscess ease. No acute bony findings. IMPRESSION: No evidence of an acute intracranial process. Stable incidental findings as above.
--- NOTE | 2023-07-19 16:04 | ER ---
Nurse's Notes [facility] Name: Josey Briscoe Age: 88 yrs Sex: Female : 1935 Arrival Date: 07/19/2023 Time: 13:47 Bed 17 Private MD: Diagnosis: Alzheimer's disease, unspecified Presentation: 07/19 13:47 Chief complaint: EMS states: they were called to [facility] for a patient ap3 who has been awake for approx 48 hours. it is reported the patient has been awake, refusing to eat, has increased nervousness and is more confused. Patient is A/O X's 1, however it is reported that is her baseline. Coronavirus screen: At this time, the client does not indicate any symptoms associated with coronavirus-19. Ebola Screen: No symptoms or risks identified at this time. Risk Assessment:. Onset of symptoms is unknown. 13:47 Method Of Arrival: EMS: [facility] ap3 13:47 Acuity: EMILIE 3 ap3 13:50 Initial Sepsis Screen: Does the patient meet any 2 criteria? Altered Mental Status. No. kc6 Patient's initial sepsis screen is negative. Does the patient have a suspected source of infection? No. Patient's initial sepsis screen is negative. Risk Assessment: Do you want to hurt yourself or someone else? Patient reports no desire to harm self or others. Triage Assessment: 13:51 General: Appears in no apparent distress. Behavior is calm, cooperative. Neuro: Level ap3 of Consciousness is awake, alert, Oriented to person. Cardiovascular: Patient's skin is warm and dry. Respiratory: Airway is patent Respiratory effort is even, unlabored, Respiratory pattern is regular, symmetrical. Historical: - Allergies: 13:50 No Known Allergies; ap3 - PMHx: 13:50 Alzheimer's disease; CVA; Dementia; Gout; Hyperlipidemia; Hypertensive disorder; ap3 - PSHx: 13:50 hysterectomy; ap3 - Immunization history:: Client reports receiving the 2nd dose of the Covid vaccine. - Social history:: Smoking status: unknown. Screenin:50 [facility] ED Fall Risk Assessment (Adult) History of falling in the last 3 months, kc6 including since admission Yes- single mechanical fall (1 pt) Confusion or Disorientation Yes (5 pts) Intoxicated or Sedated No (0 pts) Impaired Gait Yes (1 pt) Mobility Assist Device Used Yes (1 pt) Altered Elimination No (0 pt) Score/Fall Risk Level 3 or more points = High Risk. Abuse screen: Denies threats or abuse. Denies injuries from another. Nutritional screening: No deficits noted. Tuberculosis screening: No symptoms or risk factors identified. Assessment: 13:50 General: Appears in no apparent distress. comfortable, well groomed, well developed, kc Behavior is calm, cooperative, appropriate for age. Pain: Denies pain. Neuro: Level of Consciousness is awake, alert, obeys commands, confused, Oriented to person, Appropriate for age. Cardiovascular: Capillary refill < 3 seconds. Respiratory: Airway is patent Trachea midline Respiratory effort is even, unlabored, Respiratory pattern is regular, symmetrical. GI: No signs and/or symptoms were reported involving the gastrointestinal system. : No signs and/or symptoms were reported regarding the genitourinary system. EENT: No signs and/or symptoms were reported regarding the EENT system. Derm: No signs and/or symptoms reported regarding the dermatologic system. Skin is intact, is healthy with good turgor, Skin is pink, warm \T\ dry. Musculoskeletal: No signs and/or symptoms reported regarding the musculoskeletal system. Circulation, motion, and sensation intact. Capillary refill < 3 seconds, Range of motion: intact in all extremities. 14:50 Reassessment: Patient appears in no apparent distress at this time. No changes from [facility] previously documented assessment. Patient and/or family updated on plan of care and expected duration. Pain level reassessed. 15:50 Reassessment: Patient appears in no apparent distress at this time. No changes from [facility] previously documented assessment. Patient and/or family updated on plan of care and expected duration. Pain level reassessed. 16:18 Reassessment: d/c pending transport back to [facility]. DONNA Schafer stated she will [facility] arrange transport with her supervisor harvesting and call me back. 16:44 Reassessment: Patient appears in no apparent distress at this time. No changes from [facility] previously documented assessment. Patient and/or family updated on plan of care and expected duration. Pain level reassessed. Vital Signs: 13:50 BP 149 / 82; Pulse 69; Resp 17 S; Temp 98.7(O); Pulse Ox 100% on R/A; Weight 63.5 kg kc6 (R); ED Course: 13:47 Patient arrived in ED. ap3 13:48 Sheila Castillo PA-C [facility]. sb4 13:48 Tyler Daley MD is Attending Physician. sb4 13:50 Triage completed. ap3 13:50 Missed attempt(s): 24 gauge in left antecubital area. Missed attempt(s): 24 gauge in kc6 left hand. Inserted saline lock: 22 gauge in left wrist, using aseptic technique. Blood collected. Patient maintains SpO2 saturation greater than 95% on room air. 13:50 Patient has correct armband on for positive identification. Bed in low position. Call kc6 light in reach. Side rails up X2. Adult w/ patient. Client placed on continuous cardiac and pulse oximetry monitoring. NIBP monitoring applied. 13:50 Arm band placed on. kc6 14:13 Pratima Harris, RN is Primary Nurse. kc6 15:36 Head Brain Wo Cont CT In Process Unspecified. EDMS 16:44 No provider procedures requiring assistance completed. IV discontinued, intact, kc6 bleeding controlled, No redness/swelling at site. Pressure dressing applied. Administered Medications: No medications were administered Medication: 16:45 VIS not applicable for this client. kc6 Outcome: 16:03 Discharge ordered by . sb4 16:44 Discharged to intermediate. kc6 16:44 Condition: good 16:44 Discharge instructions given to patient, significant other, Instructed on discharge instructions, follow up and referral plans. medication usage, Demonstrated understanding of instructions, follow-up care, medications, Prescriptions given X 1, 16:45 Patient left the ED. kc6 Signatures: Dispatcher [employer] EDMS Kim Guzman, RN RN ap3 Pratima Harris, RN RN kc6 Sheila Castillo PA-C PA-C sb4
--- NOTE | 2023-07-19 16:04 | EDPHYS ---
Physician Documentation [facility] Name: Josey Briscoe Age: 88 yrs Sex: Female : 1935 Arrival Date: 07/19/2023 Time: 13:47 Bed 17 Private MD: ED Physician Tyler Daley HPI: 07/19 14:14 This 88 yrs old Female presents to ER via EMS with complaints of altered mental status. sb4 14:14 The patient presents with confusion. Onset: The symptoms/episode began/occurred 3 sb4 day(s) ago. Possible causes: unknown. Associated signs and symptoms: Pertinent positives: confusion, Pertinent negatives: agitation, combativeness, dizziness, lightheadedness, seizure, shortness of breath, weakness. Current symptoms: In the emergency department the patient's symptoms are unchanged from the initial presentation. Patient's baseline: Neuro: alert but confused, Motor: no deficits, Ambulation: walks without assistance, Speech: normal, The patient has a previous history of CVA, dementia. The patient has not experienced similar symptoms in the past. The patient has not recently seen a physician. Historical: - Allergies: 13:50 No Known Allergies; ap3 - PMHx: 13:50 Alzheimer's disease; CVA; Dementia; Gout; Hyperlipidemia; Hypertensive disorder; ap3 - PSHx: 13:50 hysterectomy; ap3 - Immunization history:: Client reports receiving the 2nd dose of the Covid vaccine. - Social history:: Smoking status: unknown. ROS: 14:14 Constitutional: Negative for fever, chills, and weight loss, sb4 14:14 All other systems are negative, Exam: 14:14 Constitutional: This is a well developed, well nourished patient who is awake, alert, sb4 and in no acute distress. Head/Face: Normocephalic, atraumatic. Eyes: Extra-ocular motions intact. Periorbital areas with no swelling, redness, or edema. ENT: Mucous membranes moist. Cardiovascular: Regular rate and rhythm with a normal S1 and S2. Respiratory: Lungs have equal breath sounds bilaterally, clear to auscultation and percussion. No rales, rhonchi or wheezes noted. No increased work of breathing, no retractions or nasal flaring. Abdomen/GI: Soft, non-tender, no distension. Skin: Warm, dry with normal turgor. Normal color with no rashes, no lesions, and no evidence of cellulitis. MS/ Extremity: Pulses equal, no cyanosis. Neurovascular intact. Full, normal range of motion. 14:14 Neuro: Orientation: to person, Not oriented to place, time, situation, Mentation: responsive to voice able to follow commands, Vital Signs: 13:50 BP 149 / 82; Pulse 69; Resp 17 S; Temp 98.7(O); Pulse Ox 100% on R/A; Weight 63.5 kg kc6 (R); MDM: 13:48 Patient medically screened. sb4 14:14 Differential Diagnosis: CVA, electrolyte abnormality, hypoglycemia, pneumonia, TIA, sb4 UTI, volume depletion. 16:03 Data reviewed: vital signs, nurses notes, EMS record, lab test result(s), radiologic sb4 studies, I have discussed the patient's presentation/case with the attending Emergency Department Physician; and as a result, I will discharge patient. Consideration of Admission/Observation Escalation of care including admission/observation considered. Care significantly affected by the following chronic conditions: Hypertension, dementia. Counseling: I had a detailed discussion with the patient and/or guardian regarding the historical points, exam findings, and any diagnostic results supporting the discharge/admit diagnosis, the presence of at least one elevated blood pressure reading (>120/80) during this emergency department visit, lab results, radiology results, to return to the emergency department if symptoms worsen or persist or if there are any questions or concerns that arise at home. 07/19 13:49 Order name: Acetaminophen; Complete Time: 15:34 sb4 07/19 13:49 Order name: Basic Metabolic Panel; Complete Time: 15:34 sb4 07/19 13:49 Order name: CBC with Diff; Complete Time: 15:11 sb4 07/19 13:49 Order name: Hepatic Function; Complete Time: 15:34 sb4 07/19 13:49 Order name: Salicylate; Complete Time: 15:34 sb4 07/19 13:49 Order name: Urinalysis w/ reflexes; Complete Time: 15:34 sb4 07/19 13:49 Order name: Urine Drug Screen; Complete Time: 15:34 sb4 07/19 13:49 Order name: Head Brain Wo Cont CT; Complete Time: 16:03 sb4 07/19 13:49 Order name: IV Saline Lock; Complete Time: 14:58 sb4 07/19 13:49 Order name: Labs collected and sent; Complete Time: 14:58 sb4 Administered Medications: No medications were administered Disposition: 16:51 Co-signature as Attending Physician, Tyler Daley MD I agree with the assessment and kdr plan of care. Disposition Summary: 07/19/23 16:03 Discharge Ordered Notes: Location: Home sb4 Problem: an ongoing problem sb4 Symptoms: are unchanged sb4 Condition: Stable sb4 Diagnosis - Alzheimer's disease, unspecified sb4 Followup: sb4 - With: Emergency Department - When: As needed - Reason: Trouble breathing, Worsening of condition Discharge Instructions: - Discharge Summary Sheet sb4 - Living With Alzheimer's Disease sb4 Forms: - Medication Reconciliation Form sb4 - Thank You Letter sb4 - Antibiotic Education sb4 - Prescription Opioid Use sb4 - Patient Portal Instructions sb4 - Leadership Thank You Letter sb4 Prescriptions: - melatonin 5 mg Sublingual Tablet, Sublingual - dissolve 1 tablet SUBLINGUAL route once daily at bedtime as needed for sleep; sb4 30 tablet; Refills: 0, Product Selection Permitted Signatures: Dispatcher [employer] EDTyler Salas MD MD kdr Prokisch, Amanda, RN RN [email or web address] Sheila Castillo PA-C PA-C sb4
[2023-07-19 18:26] VITALS: BP 149/82; TEMP 98.7; O2SAT 100
== END ==
LOC: ER 13:47
DX: G30.9 Alzheimer's disease, unspecified (principal); F02.80 Dementia in other diseases classified elsewhere, unspecified severity, without behavioral disturbance, psychotic disturbance, mood disturbance, and anxiety; I10 Essential (primary) hypertension; Z86.73 Personal history of transient ischemic attack (TIA), and cerebral infarction without residual deficits
CPT/HCPCS: 36415; 70450; 80048; 80076; 80143; 80179; 80307; 81001; 85025; 99284